=== PATIENT | female | born 1965 | race Caucasian/White ===

== ENCOUNTER 2018-06-18 13:34 | Emergency (ER) | payer MEDICAID ==
[~2018-06-18] VITALS: Ht 162.6 cm; Wt 83.9 kg
--- OUTSIDE RECORDS SUMMARY | 2018-06-18 13:55 | XMS REPORT ---
Author Author ALEXANDRA PATEL Organization [facility] Address [address] [place] [address] Care Team Providers Care Wood Type Finisher Name Role Phone ALEXANDRA PATEL Unavailable PROBLEMS Type Condition ICD9-CM Code UWU86-EP Code Onset Dates Condition Status SNOMED Code Problem Neural foraminal stenosis, multilevel 724.9 Nov, Active 58559531 Problem Encounter for pain management counseling V65.49 Jun, Active 448954956 Problem Neural foraminal stenosis, multilevel M43.8X9 Nov, Active Problem Chronic pain of multiple joints M25.50 May, Active 68964503 Problem Chronic pain of multiple joints 719.49 May, Active 23260714 Problem Lumbar canal stenosis 724.02 Nov, Active 11217226 Problem Unspecified viral hepatitis C without hepatic coma B19.20 Mar Active 39547376 Problem Rheumatoid arthritis involving multiple sites with positive rheumatoid factor 714.0 July, Active 11252169 Problem Alleged drug diversion Z65.3 May, Active 07703147 Problem Chronic hepatitis C without hepatic coma B18.2 Active 458586972 Problem Anxiety F41.9 Oct, Active 68805601 Problem Other chronic pain G89.29 Active 42779884 Problem Degenerative disc disease, lumbar M51.36 Nov, Active 09002566 Problem Alleged drug diversion V62.5 May, Active 92266135 Problem Depression with anxiety F41.8 Aug, Active 747750492 Problem Essential hypertension, benign I10 Jan, Active 2709417 Problem Rheumatoid arthritis involving multiple sites with positive rheumatoid factor M05.79 July, Active 12327989 Problem Family planning Z30.09 Jun, Active 82308145 Problem Back pain 724.5 Dec, Active 900365526 Problem Pure hypercholesterolemia E78.00 Dec, Active 483340046 Problem Anxiety 300.00 Oct, Active 11125289 Problem Cigarette nicotine dependence, uncomplicated F17.210 26 Nov, 2014 Active 876601709 Problem Pure hypercholesterolemia 272.0 09 Dec, 2007 Active 789662984 Problem Varicose vein of leg I83.90 Aug, Active 42725034 Problem Essential hypertension, benign 401.1 Jan, Active 1023195 Problem Low back pain M54.5 Active 084004456 Problem Back pain M54.9 Dec, Active 138215306 Problem Depression, unspecified depression type F32.9 Active 22497019 Problem Unspecified viral hepatitis C without hepatic coma 070.70 Mar Active 79395390 Problem Essential hypertension I10 Active 24847520 Problem Cocaine use disorder, moderate, dependence F14.20 Active 99359889 Problem Methamphetamine use disorder, severe, 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 Active 40553691 Problem New onset type 2 diabetes mellitus E11.9 Active 69055147 Problem Cigarette nicotine dependence, uncomplicated 305.1 Nov, Active 544832300 Problem Family planning V25.09 04 Jun, 2010 Active 97562017 Problem Uncontrolled type 2 diabetes mellitus with hyperglycemia E11.65 Active 039413875 Problem Lumbar canal stenosis M48.061 Nov, Active 27300051 Problem Varicose vein of leg 454.9 Aug, Active 47501156 Problem Depression with anxiety 300.4 Aug, Active 162703876 Problem Encounter for pain management counseling Z71.89 Jun, Active 210272914 Problem Degenerative disc disease, lumbar 722.52 Nov, Active 44088852 Problem GAVIN (generalized anxiety disorder) F41.1 Active 82929360 Problem Bipolar disorder, current episode mixed, moderate F31.62 Active 345537338 Problem Tobacco use 305.1 Nov, Active 016995190 Problem Tobacco use Z72.0 Active 301745945 Problem Chronic post-traumatic stress disorder (PTSD) F43.12 Active 56538779 ALLERGIES No Information ENCOUNTERS Encounter Location Date Diagnosis [address] [address] May, Uncontrolled type 2 diabetes mellitus with hyperglycemia E11.65 and New onset type 2 diabetes mellitus E11.9 [facility] [address] [facility] [id number] [address] May, New onset type 2 diabetes mellitus E11.9 [facility] [id number] [address] May, [facility] [address] [address] May, [address] [address] May, Chronic hepatitis C without hepatic coma B18.[address] [address] May, Chronic hepatitis C without hepatic coma B18.2 [facility] [address] [place] [address] May, [facility] [address] [address] May, [facility] [address] [place] [address] May, [facility] [address] [place] [address] May, Chronic hepatitis C without hepatic coma B18.2 and Encounter for immunization Z23 [facility] [address], [place] [address] Apr, Bipolar disorder, current episode mixed, moderate F31.62 ; Chronic post-traumatic stress disorder (PTSD) F43.12 ; GAVIN (generalized anxiety disorder) F41.1 ; Tobacco use Z72.0 ; Cocaine use disorder, moderate, dependence F14.20 and Methamphetamine use disorder, severe, 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 [address] Apr, [facility] [id number] [address] Apr, New onset type 2 diabetes mellitus E11.9 [facility] [id number] [address] Apr, New onset type 2 diabetes mellitus E11.[address] [address] Apr, Elevated glucose R73.[address] [address] Apr, Essential hypertension I10 and Chronic hepatitis C without hepatic coma B18.2 [facility] [address] [place] [address] Apr, [facility] [id number] [place] [address] Apr, [facility] [id number] [place] [address] Apr, Chronic hepatitis C without hepatic coma B18.[address] [address] Apr, Bipolar disorder, current episode mixed, moderate F31.62 ; GAVIN ( generalized anxiety disorder) F41.1 ; Other chronic pain G89.29 ; Chronic hepatitis C without hepatic coma B18.2 and Essential hypertension I10 [facility] [address] [place] [address] Apr, [facility] [id number] [place] [address] Mar, [facility] [address] [place] [address] Feb, [facility] [address] [place] [address] Feb, [facility] [id number] [place] [address] Feb, Bipolar disorder, current episode mixed, moderate F31.62 [facility] [id number] [place] [address] Feb, [facility] [address] [place] [address] Jan, Bipolar disorder, current episode mixed, moderate F31.62 ; Methamphetamine use disorder, severe, 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 ; Cocaine use disorder, moderate, dependence F14.20 ; Tobacco use Z72.0 and GAVIN ( generalized anxiety disorder) F41.1 [place] [id number] [place] [address] Dec, [place] [id number] [place] [address] Dec, [place] [id number] [place] [address] Aug, [place] [id number] [place] [address] July, Bipolar disorder, current episode mixed, moderate F31.62 [place] [id number] [place] [address] Jun, Bipolar disorder, current episode mixed, moderate F31.62 [place] [id number] [place] [address] Jun, [place] [id number] [place] [address] Jun, Bipolar disorder, current episode mixed, moderate F31.62 ; Methamphetamine use disorder, severe, 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 ; Cocaine use disorder, moderate, dependence F14.20 ; Tobacco use Z72.0 and GAVIN ( generalized anxiety disorder) F41.1 [place] [address] [place] [address] Jun, Encounter for medication monitoring Z51.81 [place] [id number] [place] [address] May, Depression, unspecified depression type F32.9 [place] [id number] [place] [address] May, [place] [id number] [place] [address] May, Bipolar disorder, current episode mixed, moderate F31.62 ; Methamphetamine use disorder, severe, 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 ; Cocaine use disorder, moderate, dependence F14.20 ; Tobacco use Z72.0 and GAVIN ( generalized anxiety disorder) F41.1 [place] [id number] [address] Apr, Low back pain M54.5 [place] [address] [place] [address] Apr, Essential hypertension I10 ; Chronic hepatitis C without hepatic coma B18.2 ; Low back pain M54.5 ; Other chronic pain G89.29 and Depression, unspecified depression type F32.9 [place] [address] [place] [address] Jan, Encounter for immunization Z23 IMMUNIZATIONS No Known Immunizations SOCIAL HISTORY Never Assessed REASON FOR VISIT PLAN OF CARE VITAL SIGNS MEDICATIONS Unknown Medications RESULTS No Results PROCEDURES No Known procedures INSTRUCTIONS MEDICATIONS ADMINISTERED No Known Medications MEDICAL (GENERAL) HISTORY Type Description Date Medical History Hep C not treated yet Medical History rheumatoid arthritis Medical History Chronic low back pain Medical History HTN Medical History anxiety/depression Medical History osteoarthritis Medical History Arrythmia Medical History DDD Surgical History lower back surgery fusion on L4, L5-S1, S2 02/20/2017 Surgical History cholecystectomy 2010 Hospitalization History surgery 02/2017 Hospitalization History childbirth
--- OUTSIDE RECORDS SUMMARY | 2018-06-18 13:56 | XMS REPORT ---
Demographics Address [address] [place] [address] [place] [address] Preferred Language Unknown Marital Status Unknown Latter Day Affiliation Unknown Race Unknown Ethnic Group Unknown Author Author LOCO TOYIN Organization [facility] Address [address] [place] [address] Care Team Providers Care Patient Accounts Coordinator Name Role Phone PARISHROSMERY RODRIGUEZA Unavailable PROBLEMS Type Condition ICD9-CM Code [id number] Code Onset Dates Condition Status SNOMED Code Problem Other chronic pain G89.29 Active 03588334 Problem Depression, unspecified depression type F32.9 Active 75416057 Problem Essential hypertension I10 Active 83440631 Problem Low back pain M54.5 Active 293632979 Problem Bipolar disorder, current episode mixed, moderate F31.62 Active 026688171 Problem Tobacco use Z72.0 Active 915668348 Problem Cocaine use disorder, moderate, dependence F14.20 Active 50501075 Problem Chronic hepatitis C without hepatic coma B18.2 Active 947518374 Problem GAVIN (generalized anxiety disorder) F41.1 Active 29833005 Problem Methamphetamine use disorder, severe, 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 [address] [place] [address] Aug, [place] [id number] [place] [address] July, Bipolar disorder, current episode mixed, moderate F31.62 [facility] [address] [place] [address] Jun, Bipolar disorder, current episode mixed, moderate F31.62 [facility] [id number] [place] [address] Jun, 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20 ; Tobacco use Z72.0 and GAVIN ( generalized anxiety disorder) F41.1 [place] [id number] [place] [address] Apr, Low back pain M54.[address] [address] Apr, Essential hypertension I10 ; Chronic hepatitis C without hepatic coma B18.2 ; Low back pain M54.5 ; Other chronic pain G89.29 and Depression, unspecified depression type F32.9 [place] [id number] [place] [address] Jan, Encounter for immunization Z23 IMMUNIZATIONS No Known Immunizations SOCIAL HISTORY Never Assessed REASON FOR VISIT med refill PLAN OF CARE VITAL SIGNS MEDICATIONS Medication Instructions Dosage Frequency Start Date End Date Duration Status Seroquel 100 mg Orally Once a day 1 tablet 24h Jun, 30 day(s) Active Seroquel 25 MG Orally BId prn for anxiety, irritability 0.5-1 tablet Jun, 30 day(s) Active RESULTS No Results PROCEDURES No Known procedures INSTRUCTIONS MEDICATIONS ADMINISTERED No Known Medications MEDICAL (GENERAL) HISTORY Type Description Date Medical History Hep C not treated yet Medical History RA Medical History Extra vertabrae in lower lumbar Medical History HTN Medical History anxiety/depression Medical History osteoarthritis Medical History Arrythmia Medical History DDD Surgical History lower back surgery fusion on L4, L5-S1, S2 02/20/2017 Surgical History cholecystectomy 2009 Hospitalization History surgery 02/2017 Hospitalization History childbirth
--- OUTSIDE RECORDS SUMMARY | 2018-06-18 13:56 | XMS REPORT ---
Demographics Address [address] [place] [address] Preferred Language Unknown Marital Status Unknown Sikh Affiliation Unknown Race Unknown Ethnic Group Unknown Author Author LOCO TOYIN Organization [facility] Address [address] [place] [address] Care Team Providers Care Retail Beauty Specialist Name Role Phone PARISHROSMERY RODRIGUEZA Unavailable PROBLEMS Type Condition ICD9-CM Code SCX65-PE Code Onset Dates Condition Status SNOMED Code Problem Other chronic pain G89.29 Active 89197096 Problem Depression, unspecified depression type F32.9 Active 59614563 Problem Essential hypertension I10 Active 33161513 Problem Low back pain M54.5 Active 254477048 Problem Bipolar disorder, current episode mixed, moderate F31.62 Active 500300012 Problem Tobacco use Z72.0 Active 730016068 Problem Cocaine use disorder, moderate, dependence F14.20 Active 34994255 Problem Chronic hepatitis C without hepatic coma B18.2 Active 618974402 Problem GAVIN (generalized anxiety disorder) F41.1 Active 42549633 Problem Methamphetamine use disorder, severe, 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 Active 23864422 ALLERGIES No Information ENCOUNTERS Encounter Location Date Diagnosis [facility] [address] [place] [address] Aug, [place] [id number] [place] [address]- 2608 July, Bipolar disorder, current episode mixed, moderate F31.62 [facility] [address] [place] [address]- 2592 Jun, Bipolar disorder, current episode mixed, moderate F31.62 [facility] [id number] [place] [address]- [address] Jun, [facility] [address] [place] [address]87- 4347 Jun, Bipolar disorder, current episode mixed, moderate F31.62 ; Methamphetamine use disorder, severe, 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 ; Cocaine use disorder, moderate, dependence F14.20 ; Tobacco use Z72.0 and GAVIN ( generalized anxiety disorder) F41.1 [place] [id number] [place] [address] Jun, Encounter for medication monitoring Z51.[address] [address] May, Depression, unspecified depression type F32.9 [place] [address] [address] May, [place] [address]- [address] May, Bipolar disorder, current episode mixed, moderate F31.62 ; Methamphetamine use disorder, severe, 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 ; Cocaine use disorder, moderate, dependence F14.20 ; Tobacco use Z72.0 and GAVIN ( generalized anxiety disorder) F41.1 [place] [id number] [place] [address]32 Apr, Low back pain M54.[address] [address] Apr, Essential hypertension I10 ; Chronic hepatitis C without hepatic coma B18.2 ; Low back pain M54.5 ; Other chronic pain G89.29 and Depression, unspecified depression type F32.9 [place] [id number] [place] [address]- 3058 Jan, Encounter for immunization Z23 IMMUNIZATIONS No Known Immunizations SOCIAL HISTORY Never Assessed REASON FOR VISIT Ambien PLAN OF CARE VITAL SIGNS MEDICATIONS Medication Instructions Dosage Frequency Start Date End Date Duration Status Seroquel 100 MG Orally BId prn for anxiety, irritability 0.5-1 tablet Jun, 30 day(s) Active Seroquel 200 MG Orally Once a day 1 tablet 24h Jun, 30 day(s) Active RESULTS No Results [...]
--- OUTSIDE RECORDS SUMMARY | 2018-06-18 13:56 | XMS REPORT ---
Author Author TOYIN ADAN Organization [facility] Address [address] [place] [address] Care Team Providers Care Dipper Fish Name Role Phone LOCO TOYIN Unavailable PROBLEMS Type Condition ICD9-CM Code DES00-OX Code Onset Dates Condition Status SNOMED Code Problem Other chronic pain G89.29 Active 68838132 Problem Depression, unspecified depression type F32.9 Active 42815744 Problem Essential hypertension I10 Active 44027555 Problem Low back pain M54.5 Active 088729542 Problem Bipolar disorder, current episode mixed, moderate F31.62 Active 030084358 Problem Tobacco use Z72.0 Active 945471264 Problem Cocaine use disorder, moderate, dependence F14.20 Active 67070507 Problem Chronic hepatitis C without hepatic coma B18.2 Active 961329055 Problem GAVIN (generalized anxiety disorder) F41.1 Active 24921347 Problem Methamphetamine use disorder, severe, 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 Active 11414543 ALLERGIES No Information ENCOUNTERS Encounter Location Date Diagnosis [facility] [id number] [place] [address]- [address] May, [place] [id number] [place] [address]- [address]28 Jan, Bipolar disorder, current episode mixed, moderate F31.62 ; Methamphetamine use disorder, severe, 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 ; Cocaine use disorder, moderate, dependence F14.20 ; Tobacco use Z72.0 and GAVIN ( generalized anxiety disorder) F41.1 [facility] [id number] [place] [address]- [address] Aug, [facility] [id number] [place] [address] 67[address]- 4222 July, Bipolar disorder, current episode mixed, moderate F31.62 [place] [id number] [place] [address]481- 6713 Jun, Bipolar disorder, current episode mixed, moderate F31.62 [place] [id number] [place] [address]- [address] Jun, [place] [id number] [place] [address]- 3115 Jun, Bipolar disorder, current episode mixed, moderate F31.62 ; Methamphetamine use disorder, severe, 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 ; Cocaine use disorder, moderate, dependence F14.20 ; Tobacco use Z72.0 and GAVIN ( generalized anxiety disorder) F41.1 [place] [id number] [place] [address] 16550- 9544 Jun, Encounter for medication monitoring Z51.81 [place] [id number] [place] [address] 35946- 2029 May, Depression, unspecified depression type F32.9 [place] [id number] [place] [address]58- 5439 May, [place] [id number] [place] [address] 98071- 9592 May, Bipolar disorder, current episode mixed, moderate F31.62 ; Methamphetamine use disorder, severe, 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 ; Cocaine use disorder, moderate, dependence F14.20 ; Tobacco use Z72.0 and GAVIN ( generalized anxiety disorder) F41.1 [place] [address] [place] [address]- 4805 Apr, Low back pain M54.5 [place] [id number] [place] [address] 76203- 4391 Apr, Essential hypertension I10 ; Chronic hepatitis C without hepatic coma B18.2 ; Low back pain M54.5 ; Other chronic pain G89.29 and Depression, unspecified depression type F32.9 [place] [id number] [place] [address]- 1253 Jan, Encounter for immunization Z23 IMMUNIZATIONS No Known Immunizations SOCIAL HISTORY Never Assessed REASON FOR VISIT F\U [facility] octavio PLAN OF CARE Activity Details Follow Up 6 Weeks Reason: VITAL SIGNS Height 64 in 2018-01-31 Weight 203.5 lbs 2018-01-31 Heart Rate 95 bpm 2018-01-31 Respiratory Rate 20 2018-01-31 BMI 34.93 kg/m2 2018-01-31 Blood pressure systolic 160 mmHg 2018-01-31 Blood pressure diastolic 98 mmHg 2018-01-31 MEDICATIONS Medication Instructions Dosage Frequency Start Date End Date Duration Status Seroquel 50 MG Orally BId 1 tablet 12h 30 days Active Seroquel 200 MG Orally Once a day 1 tablet 24h 30 days Active Lisinopril-Hydrochlorothiazide 10-12.5 MG Orally Once a day 1 tablet 24h Active Methocarbamol 750 MG 1 TABLET 4 TIMES A DAY NEEDED ORALLY 90 Active Gabapentin 300 MG Orally Three times a day 1 capsule 8h Active Carvedilol 25 MG Orally 2 times a day 12h Active RESULTS No Results PROCEDURES No Known [...]
--- OUTSIDE RECORDS SUMMARY | 2018-06-18 13:56 | XMS REPORT ---
Demographics Address [address] [place] [address] Preferred Language Unknown Marital Status Unknown Jain Affiliation Unknown Race Unknown Ethnic Group Unknown Author Author LOCO TOYIN Organization [facility] Address [address] [place] [address] Care Team Providers Care Mining Consultant Name Role Phone PARISHROSMERY RODRIGUEZA Unavailable PROBLEMS Type Condition ICD9-CM Code HDP34-CP Code Onset Dates Condition Status SNOMED Code Problem Other chronic pain G89.29 Active 23870107 Problem Depression, unspecified depression type F32.9 Active 90434887 Problem Essential hypertension I10 Active 46187167 Problem Low back pain M54.5 Active 284182719 Problem Bipolar disorder, current episode mixed, moderate F31.62 Active 546760333 Problem Tobacco use Z72.0 Active 529553582 Problem Cocaine use disorder, moderate, dependence F14.20 Active 91226907 Problem Chronic hepatitis C without hepatic coma B18.2 Active 601207323 Problem GAVIN (generalized anxiety disorder) F41.1 Active 50833040 Problem Methamphetamine use disorder, severe, 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 Active 59320372 ALLERGIES No Information ENCOUNTERS Encounter Location Date Diagnosis [facility] [id number] [place] [address] Aug, [place] [id number] [place] [address] 26598[address] July, Bipolar disorder, current episode mixed, moderate F31.62 [facility] [id number] [place] [address] 79918- 1552 Jun, Bipolar disorder, current episode mixed, moderate F31.62 [facility] [address] [place] [id number] [place] [address] 93890- 7034 Jun, [facility] [address] [place] [address] 41900- 2757 Jun, Bipolar disorder, current episode mixed, moderate F31.62 ; Methamphetamine use disorder, severe, 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 ; Cocaine use disorder, moderate, dependence F14.20 ; Tobacco use Z72.0 and GAVIN ( generalized anxiety disorder) F41.1 [place] [address] [place] [id number] [place] [id number] Jun, Encounter for medication monitoring Z51.81 [place] [id number] May, Depression, unspecified depression type F32.9 [place] [address] [address] May, [address] [address] May, Bipolar disorder, current episode mixed, moderate F31.62 ; Methamphetamine use disorder, severe, 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 ; Cocaine use disorder, moderate, dependence F14.20 ; Tobacco use Z72.0 and GAVIN ( generalized anxiety disorder) F41.1 [place] [address] [id number] [place] [address] 45581- 5409 Apr, Low back pain M54.5 [place] [address]182- [address] Apr, Essential hypertension I10 ; Chronic hepatitis C without hepatic coma B18.2 ; Low back pain M54.5 ; Other chronic pain G89.29 and Depression, unspecified depression type F32.9 [place] [address] [place] [id number] [place] [address]72- 8331 Jan, Encounter for immunization Z23 IMMUNIZATIONS No [...]
--- OUTSIDE RECORDS SUMMARY | 2018-06-18 13:56 | XMS REPORT ---
Author Author TARIQ FOSTER [facility] Address [address] [place] [address] Care Team Providers Care Fish House Worker Name Role Phone TARIQ FOSTER Unavailable PROBLEMS Type Condition ICD9-CM Code LOZ23-NR Code Onset Dates Condition Status SNOMED Code Problem Neural foraminal stenosis, multilevel 724.9 Nov, Active 83898579 Problem Encounter for pain management counseling V65.49 Jun, Active 599065211 Problem Neural foraminal stenosis, multilevel M43.8X9 Nov, Active Problem Chronic pain of multiple joints M25.50 May, Active 34895171 Problem Chronic pain of multiple joints 719.49 May, Active 74756406 Problem Lumbar canal stenosis 724.02 Nov, Active 88979523 Problem Unspecified viral hepatitis C without hepatic coma B19.20 Mar Active 68118293 Problem Rheumatoid arthritis involving multiple sites with positive rheumatoid factor 714.0 July, Active 76341645 Problem Alleged drug diversion Z65.3 May, Active 18091328 Problem Chronic hepatitis C without hepatic coma B18.2 Active 151740695 Problem Anxiety F41.9 Oct, Active 55247293 Problem Other chronic pain G89.29 Active 25142745 Problem Degenerative disc disease, lumbar M51.36 Nov, Active 54193008 Problem Alleged drug diversion V62.5 May, Active 85299663 Problem Depression with anxiety F41.8 Aug, Active 166656673 Problem Essential hypertension, benign I10 Jan, Active 0493560 Problem Rheumatoid arthritis involving multiple sites with positive rheumatoid factor M05.79 July, Active 98188869 Problem Family planning Z30.09 Jun, Active 29493652 Problem Back pain 724.5 Dec, Active 405305544 Problem Pure hypercholesterolemia E78.00 Dec, Active 801125771 Problem Anxiety 300.00 30 Aug, 2014 Active 68010413 Problem Cigarette nicotine dependence, uncomplicated F17.210 Nov, Active 043808782 Problem Pure hypercholesterolemia 272.0 Dec, Active 568001672 Problem Varicose vein of leg I83.90 Aug, Active 45915923 Problem Essential hypertension, benign 401.1 Jan, Active 9762369 Problem Low back pain M54.5 Active 127572498 Problem Back pain M54.9 Dec, Active 305507952 Problem Depression, unspecified depression type F32.9 Active 81256637 Problem Unspecified viral hepatitis C without hepatic coma 070.70 Mar Active 89845322 Problem Essential hypertension I10 Active 37243565 Problem Cocaine use disorder, moderate, dependence F14.20 Active 99003425 Problem Methamphetamine use disorder, severe, 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 Active 07085430 Problem New onset type 2 diabetes mellitus E11.9 Active 80586275 Problem Cigarette nicotine dependence, uncomplicated 305.1 Nov, Active 739231118 Problem Family planning V25.09 Jun, Active 14606642 Problem Uncontrolled type 2 diabetes mellitus with hyperglycemia E11.65 Active 371981699 Problem Lumbar canal stenosis M48.061 Nov, Active 47067758 Problem Varicose vein of leg 454.9 Aug, Active 74799559 Problem Depression with anxiety 300.4 Aug, Active 539389648 Problem Encounter for pain management counseling Z71.89 Jun, Active 266670510 Problem Degenerative disc disease, lumbar 722.52 Nov, Active 10186157 Problem GAVIN (generalized anxiety disorder) F41.1 Active 52622027 Problem Bipolar disorder, current episode mixed, moderate F31.62 Active 208315009 Problem Tobacco use 305.1 Nov, Active 773891000 Problem Tobacco use Z72.0 Active 134764008 Problem Chronic post-traumatic stress disorder (PTSD) F43.12 Active 75943527 ALLERGIES No Information ENCOUNTERS Encounter Location Date Diagnosis [address] [address] May, Uncontrolled type 2 diabetes mellitus with hyperglycemia E11.65 and New onset type 2 diabetes mellitus E11.9 [facility] [address] [facility] [id number] [place] [address] May, New onset type 2 diabetes mellitus E11.9 [facility] [address] [place] [address] May, [facility] [address] [place] [address] May, [address] [address] May, Chronic hepatitis C without hepatic coma B18.[address] [address] May, Chronic hepatitis C without hepatic coma B18.2 [facility] [address] [place] [address] May, [facility] [address] [place] [address] May, [facility] [address] [place] [address] May, [facility] [address] [place] [address] May, Chronic hepatitis C without hepatic coma B18.2 and Encounter for immunization Z23 [facility] [address] [place] [address] Apr, Bipolar disorder, current episode mixed, moderate F31.62 ; Chronic post-traumatic stress disorder (PTSD) F43.12 ; GAVIN (generalized anxiety disorder) F41.1 ; Tobacco use Z72.0 ; Cocaine use disorder, moderate, dependence F14.20 and Methamphetamine use disorder, severe, 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 [address] Apr, [facility] [address] [place] [id number] [address] Apr, New onset type 2 diabetes mellitus E11.9 [facility] [address] [place] [id number] [address] Apr, New onset type 2 diabetes mellitus E11.[address] [place] [address] Apr, Elevated glucose R73.[address] [address] Apr, Essential hypertension I10 and Chronic hepatitis C without hepatic coma B18.2 [facility] [address] [place] [address] Apr, [facility] [address] [place] [id number] [place] [address] Apr, [facility] [address] [place] [address]- 49[address] Apr, Chronic hepatitis C without hepatic coma B18.[address] [address] Apr, Bipolar disorder, current episode mixed, moderate F31.62 ; GAVIN ( generalized anxiety disorder) F41.1 ; Other chronic pain G89.29 ; Chronic hepatitis C without hepatic coma B18.2 and Essential hypertension I10 [facility] [address] [place] [address]- [address] Apr, [facility] [address] [place] [id number] [place] [address]- 9[address] Mar, [facility] [address] [place] [address] Feb, [facility] [address] [place] [id number] [address] Feb, [facility] [address] [place] [address]- [address] Feb, Bipolar disorder, current episode mixed, moderate F31.62 [facility] [address] [place] [id number] [place] [address] 85[address]- [address] Feb, [facility] [address] [address] Jan, Bipolar disorder, current episode mixed, moderate F31.62 ; Methamphetamine use disorder, severe, 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 ; Cocaine use disorder, moderate, dependence F14.20 ; Tobacco use Z72.0 and GAVIN ( generalized anxiety disorder) F41.1 [place] [address] [place] [address]- 360[address] Dec, [place] [address] [place] [id number] [place] [address]- 9149 Dec, [place] [address] [place] [id number] [place] [address]36- 4[address] Aug, [place] [address] [place] [id number] [place] [address]- 59[address] July, Bipolar disorder, current episode mixed, moderate F31.62 [place] [address] [place] [id number] [place] [address]- [address]287 Jun, Bipolar disorder, current episode mixed, moderate F31.62 [place] [address] [place] [id number] [place] [address] 54[address]- 2919 Jun, [place] [address] [place] [id number] [place] [address]- 7[address] Jun, Bipolar disorder, current episode mixed, moderate F31.62 ; Methamphetamine use disorder, severe, 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 ; Cocaine use disorder, moderate, dependence F14.20 ; Tobacco use Z72.0 and GAVIN ( generalized anxiety disorder) F41.1 [place] [address] [place] [address]- 9582 Jun, Encounter for medication monitoring Z51.81 [place] [address] [place] [address] 86[address]- 8780 May, Depression, unspecified depression type F32.9 [place] [address] [place] [address]1724- 3[address] May, [place] [address] [place] [address]- 4[address] May, Bipolar disorder, current episode mixed, moderate F31.62 ; Methamphetamine use disorder, severe, 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 ; Cocaine use disorder, moderate, dependence F14.20 ; Tobacco use Z72.0 and GAVIN ( generalized anxiety disorder) F41.1 [place] [address] [place] [id number], [place] [address] Apr, Low back pain M54.5 [place] [address] [place] [address]- 79[address] Apr, Essential hypertension I10 ; Chronic hepatitis C without hepatic coma B18.2 ; Low back pain M54.5 ; Other chronic pain G89.29 and Depression, unspecified depression type F32.9 [place] [address] [place] [address] 07709- 0[address] Jan, Encounter for immunization Z23 IMMUNIZATIONS No Known Immunizations SOCIAL HISTORY Never Assessed REASON FOR VISIT DM ed scheduled- high BS PLAN OF CARE VITAL SIGNS MEDICATIONS Unknown [...]
--- OUTSIDE RECORDS SUMMARY | 2018-06-18 13:56 | XMS REPORT ---
Author Author TOYIN SWEET Organization [facility] Address [address] [place] [address] Care Team Providers Care Rubber Stamp Maker Name Role Phone TOYIN SWEET Unavailable PROBLEMS Type Condition ICD9-CM Code IGL34-LX Code Onset Dates Condition Status SNOMED Code Problem Other chronic pain G89.29 Active 75973208 Problem Depression, unspecified depression type F32.9 Active 20997859 Problem Essential hypertension I10 Active 56266585 Problem Low back pain M54.5 Active 728527447 Problem Bipolar disorder, current episode mixed, moderate F31.62 Active 046034041 Problem Tobacco use Z72.0 Active 985262358 Problem Cocaine use disorder, moderate, dependence F14.20 Active 31753238 Problem Chronic hepatitis C without hepatic coma B18.2 Active 161822315 Problem GAVIN (generalized anxiety disorder) F41.1 Active 64374940 Problem Methamphetamine use disorder, severe, 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 Active 33425005 ALLERGIES No Information ENCOUNTERS Encounter Location Date Diagnosis [place] [address] [place] [id number] [place] [address]40[address] May, [place] [address] [place] [id number] [place] [address] 10926- 8135 Feb, Bipolar disorder, current episode mixed, moderate F31.62 [place] [address] [place] [id number] [place] [address] 18177- 4800 Jan, Bipolar disorder, current episode mixed, moderate F31.62 ; Methamphetamine use disorder, severe, 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 ; Cocaine use disorder, moderate, dependence F14.20 ; Tobacco use Z72.0 and GAVIN ( generalized anxiety disorder) F41.1 [place] [address] [place] [id number] [place] [address] 40602- 4640 Aug, [place] [address] [place] [address] 30356- 3902 July, Bipolar disorder, current episode mixed, moderate F31.62 [place] [address] [place] [id number] [place] [address] 97309- 0793 Jun, Bipolar disorder, current episode mixed, moderate F31.62 [place] [address] [place] [id number] [place] [address] 62483- 9866 Jun, [place] [address] [place] [id number] [place] [address] 09983- 6991 Jun, Bipolar disorder, current episode mixed, moderate F31.62 ; Methamphetamine use disorder, severe, 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 ; Cocaine use disorder, moderate, dependence F14.20 ; Tobacco use Z72.0 and GAVIN ( generalized anxiety disorder) F41.1 [place] [address] [place] [id number] [place] [address] 55262- 5792 Jun, Encounter for medication monitoring Z51.81 [place] [address] [place] [id number] [place] [address] 26633- 0212 May, Depression, unspecified depression type F32.9 [place] [address] [place] [id number] [place] [address] 83325- 4736 May, [place] [address] [place] [id number] [place] [address] 79797- 6631 May, Bipolar disorder, current episode mixed, moderate F31.62 ; Methamphetamine use disorder, severe, 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 ; Cocaine use disorder, moderate, dependence F14.20 ; Tobacco use Z72.0 and GAVIN ( generalized anxiety disorder) F41.1 [place] [address] [place] [id number] [place] [address] 33077- 5058 Apr, Low back pain M54.5 [place] [address] [place] [address] 74176- 4869 Apr, Essential hypertension I10 ; Chronic hepatitis C without hepatic coma B18.2 ; Low back pain M54.5 ; Other chronic pain G89.29 and Depression, unspecified depression type F32.9 [facility] [address] [facility] [id number] [place] [address] Jan, Encounter for immunization Z23 IMMUNIZATIONS No Known Immunizations SOCIAL HISTORY Never Assessed REASON FOR VISIT Medication question PLAN OF CARE VITAL SIGNS MEDICATIONS Medication Instructions Dosage Frequency Start Date End Date Duration Status Seroquel 200 MG Orally Once a day at bedtime 1 tablet 30 Active Seroquel 100 MG Orally BId 1 tablet 12h 30 days Active RESULTS No Results PROCEDURES No Known [...]
--- OUTSIDE RECORDS SUMMARY | 2018-06-18 13:56 | XMS REPORT ---
Author Author ALEXANDRA PATEL Organization [facility] Address [address] [place] [address] Care Team Providers Care Physician Relations Specialist Name Role Phone ALEXANDRA PATEL Unavailable PROBLEMS Type Condition ICD9-CM Code [id number] Code Onset Dates Condition Status SNOMED Code Problem Neural foraminal stenosis, multilevel 724.9 Nov, Active 32212140 Problem Encounter for pain management counseling V65.49 Jun, Active 476061150 Problem Neural foraminal stenosis, multilevel M43.8X9 Nov, Active Problem Chronic pain of multiple joints M25.50 May, Active 87400736 Problem Chronic pain of multiple joints 719.49 May, Active 46230694 Problem Lumbar canal stenosis 724.02 Nov, Active 30439913 Problem Unspecified viral hepatitis C without hepatic coma B19.20 Mar Active 29680767 Problem Rheumatoid arthritis involving multiple sites with positive rheumatoid factor 714.0 July, Active 27148362 Problem Alleged drug diversion Z65.3 May, Active 83224250 Problem Chronic hepatitis C without hepatic coma B18.2 Active 422772312 Problem Anxiety F41.9 Oct, Active 37534191 Problem Other chronic pain G89.29 Active 59592759 Problem Degenerative disc disease, lumbar M51.36 Nov, Active 85550320 Problem Alleged drug diversion V62.5 May, Active 07775486 Problem Depression with anxiety F41.8 Aug, Active 270140824 Problem Essential hypertension, benign I10 Jan, Active 2910184 Problem Rheumatoid arthritis involving multiple sites with positive rheumatoid factor M05.79 July, Active 88624642 Problem Family planning Z30.09 Jun, Active 10277001 Problem Back pain 724.5 Dec, Active 616152530 Problem Pure hypercholesterolemia E78.00 Dec, Active 296277816 Problem Anxiety 300.00 Oct, Active 88239335 Problem Cigarette nicotine dependence, uncomplicated F17.210 Nov, Active 008682656 Problem Pure hypercholesterolemia 272.0 Dec, Active 518875047 Problem Varicose vein of leg I83.90 Aug, Active 22327898 Problem Essential hypertension, benign 401.1 Jan, Active 4285646 Problem Low back pain M54.5 Active 261506806 Problem Back pain M54.9 Dec, Active 072990832 Problem Depression, unspecified depression type F32.9 Active 36346666 Problem Unspecified viral hepatitis C without hepatic coma 070.70 Mar Active 30751074 Problem Essential hypertension I10 Active 68198631 Problem Cocaine use disorder, moderate, dependence F14.20 Active 81362284 Problem Methamphetamine use disorder, severe, 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 Active 22398079 Problem New onset type 2 diabetes mellitus E11.9 Active 26430249 Problem Cigarette nicotine dependence, uncomplicated 305.1 Nov, Active 118203006 Problem Family planning V25.09 04 Jun, 2010 Active 97525214 Problem Uncontrolled type 2 diabetes mellitus with hyperglycemia E11.65 Active 837346866 Problem Lumbar canal stenosis M48.061 Nov, Active 01962287 Problem Varicose vein of leg 454.9 Aug, Active 82420750 Problem Depression with anxiety 300.4 Aug, Active 332580370 Problem Encounter for pain management counseling Z71.89 Jun, Active 019244150 Problem Degenerative disc disease, lumbar 722.52 Nov, Active 01367182 Problem GAVIN (generalized anxiety disorder) F41.1 Active 76751396 Problem Bipolar disorder, current episode mixed, moderate F31.62 Active 471426338 Problem Tobacco use 305.1 Nov, Active 635114775 Problem Tobacco use Z72.0 Active 322750450 Problem Chronic post-traumatic stress disorder (PTSD) F43.12 Active 10560276 ALLERGIES Substance Reaction Event Type Date Status Tetracycline HCl hives Drug Allergy May, Active Erythromycin hives Drug Allergy May, Active ENCOUNTERS Encounter Location Date Diagnosis [facility] [address] [address] May, Uncontrolled type 2 diabetes mellitus with hyperglycemia E11.65 and New onset type 2 diabetes mellitus E11.9 [facility] [address] [address] May, New onset type 2 diabetes mellitus E11.9 [facility] [place] [facility] [address] [address] May, [facility] [place] [facility] [address] [address] May, [address] [address] May, Chronic hepatitis C without hepatic coma B18.[address] [address] May, Chronic hepatitis C without hepatic coma B18.2 [facility] [address] [place] [address] May, [place] [address] [address] May, [place] [address] [address] May, [facility] [address] [place] [address] May, Chronic hepatitis C without hepatic coma B18.2 and Encounter for immunization Z23 [facility] [address] [address] Apr, Bipolar disorder, current episode mixed, moderate F31.62 ; Chronic post-traumatic stress disorder (PTSD) F43.12 ; GAVIN (generalized anxiety disorder) F41.1 ; Tobacco use Z72.0 ; Cocaine use disorder, moderate, dependence F14.20 and Methamphetamine use disorder, severe, 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 [address] Apr, [facility] [address] [place] [id number] [address] Apr, New onset type 2 diabetes mellitus E11.9 [facility] [address], [place] [address] Apr, New onset type 2 diabetes mellitus E11.[address] [address] Apr, Elevated glucose R73.[address] [address] Apr, Essential hypertension I10 and Chronic hepatitis C without hepatic coma B18.2 [facility] [address] [place] [id number] [place] [address] Apr, [facility] [id number] [place] [address] Apr, [facility] [place] [facility] [address] [place] [id number] [place] [address] Apr, Chronic hepatitis C without hepatic coma B18.[address] [address] Apr, Bipolar disorder, current episode mixed, moderate F31.62 ; GAVIN ( generalized anxiety disorder) F41.1 ; Other chronic pain G89.29 ; Chronic hepatitis C without hepatic coma B18.2 and Essential hypertension I10 [facility] [address] [place] [id number] [place] [address] Apr, [facility] [place] [facility] [address] [place] [id number] [place] [address] Mar, [facility] [place] [facility] [address] [place] [address] Feb, [facility] [id number] [address] Feb, [facility] [address] [place] [address] [id number] [place] [address] Feb, Bipolar disorder, current episode mixed, moderate F31.62 [facility] [address], [place] [address] Feb, [facility] [address] [address] [id number] [place] [address] Jan, Bipolar disorder, current episode mixed, moderate F31.62 ; Methamphetamine use disorder, severe, 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 ; Cocaine use disorder, moderate, dependence F14.20 ; Tobacco use Z72.0 and GAVIN ( generalized anxiety disorder) F41.1 [place] [address] [place] [id number] [place] [address] Dec, [place] [address] [address] Dec, [place] [address] [place] [id number] [place] [address] Aug, [place] [address] [address] July, Bipolar disorder, current episode mixed, moderate F31.62 [place] [address] [place] [id number] [place] [address] Jun, Bipolar disorder, current episode mixed, moderate F31.62 [place] [address] [place] [id number] [place] [address] Jun, [place] [address] [address] Jun, Bipolar disorder, current episode mixed, moderate F31.62 ; Methamphetamine use disorder, severe, 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 ; Cocaine use disorder, moderate, dependence F14.20 ; Tobacco use Z72.0 and GAVIN ( generalized anxiety disorder) F41.1 [place] [address] [place] [id number] [place] [address] Jun, Encounter for medication monitoring Z51.81 [place] [address] [address] May, Depression, unspecified depression type F32.9 [place] [address] [place] [id number] [place] [address] May, [place] [address] [address] May, Bipolar disorder, current episode mixed, moderate F31.62 ; Methamphetamine use disorder, severe, 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 ; Cocaine use disorder, moderate, dependence F14.20 ; Tobacco use Z72.0 and GAVIN ( generalized anxiety disorder) F41.1 [place] [address] [place] [id number] [address] Apr, Low back pain M54.5 [place] [address] [place] [address] Apr, Essential hypertension I10 ; Chronic hepatitis C without hepatic coma B18.2 ; Low back pain M54.5 ; Other chronic pain G89.29 and Depression, unspecified depression type F32.9 [place] [address] [place] [id number] [address] Jan, Encounter for immunization Z23 IMMUNIZATIONS Vaccine Route Administration Date Status HEP A (PED/ADOL-2 DOSE) IM Intramuscular May 17, 2018 Administered HEP A (PED/ADOL-2 DOSE) IM Intramuscular May 17, 2018 Administered HEP B (PED/ADOL, 3 DOSE) IM Intramuscular May 17, 2018 Administered HEP B (PED/ADOL, 3 DOSE) IM Intramuscular May 17, 2018 Administered SOCIAL HISTORY Never Assessed REASON FOR VISIT Hep C initial visit Fadi cunningham, G=1A, Q=672,000, F-2. Clean over 2 years. - lynrn PLAN OF CARE Activity Details Follow Up we will call Reason: VITAL SIGNS Height 64 in 2018-05-17 Weight 203 lbs 2018-05-17 Temperature 96.5 degrees Fahrenheit 2018-05-17 Heart Rate 110 bpm 2018-05-17 Respiratory Rate 20 2018-05-17 BMI 34.84 kg/m2 2018-05-17 Blood pressure systolic 132 mmHg 2018-05-17 Blood pressure diastolic 82 mmHg 2018-05-17 MEDICATIONS Medication Instructions Dosage Frequency Start Date End Date Duration Status Seroquel 300 MG Orally at night 1 tablet every night for 3 nights then take 1.5 tablets nightly 30 days Active Lancets Apr, Active Metformin HCl 500 MG Orally 2 times a day 1 tablet with a meal 12h Apr, 30 day(s) Active Methocarbamol 750 MG 1 TABLET 4 TIMES A DAY NEEDED ORALLY 90 Active OneTouch Verio w/Device as directed Apr, Active Seroquel 100 MG Orally BId 1 tablet 12h 30 days Active Mavyret 100-40 MG Orally Once a day 3 tablets 24h May, 8 weeks Active OneTouch Verio - In Vitro 4 times daily as directed Apr, Active Lisinopril-Hydrochlorothiazide 20-12.5 MG Orally Once a day 1 tablet 24h Active Carvedilol 25 MG Orally 2 times a day 12h Active Gabapentin 300 MG Orally Three times a day 1 capsule 8h Active RESULTS No Results PROCEDURES Procedure Date Ordered Result Body Site IMMUNIZATION ADMIN, EACH ADD (please include units) May 17, 2018 SINGLE IMMUNIZATION ADMIN May 17, 2018 HEP B (PED/ADOL, 3 DOSE) May 17, 2018 HEP A (PED/ADOL-2 DOSE) May 17, 2018 INSTRUCTIONS MEDICATIONS ADMINISTERED No Known Medications MEDICAL [...]
--- OUTSIDE RECORDS SUMMARY | 2018-06-18 13:57 | XMS REPORT ---
Demographics Address [address] [place] [address] Preferred Language Unknown Marital Status Unknown Nondenominational Affiliation Unknown Race Unknown Ethnic Group Unknown Author Author RAFFAELE HUI Organization [facility] Address [address] [place] [address] Care Team Providers Care Bean Snipper Name Role Phone RAFFAELE HUI Unavailable PROBLEMS Type Condition ICD9-CM Code MAK12-BF Code Onset Dates Condition Status SNOMED Code Problem Other chronic pain G89.29 Active 48720257 Problem Depression, unspecified depression type F32.9 Active 81560306 Problem Essential hypertension I10 Active 65809481 Problem Low back pain M54.5 Active 423394369 Problem Bipolar disorder, current episode mixed, moderate F31.62 Active 672551148 Problem Tobacco use Z72.0 Active 261347655 Problem Cocaine use disorder, moderate, dependence F14.20 Active 63327168 Problem Chronic hepatitis C without hepatic coma B18.2 Active 083781367 Problem GAVIN (generalized anxiety disorder) F41.1 Active 85654811 Problem Methamphetamine use disorder, severe, 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 Active 05231324 ALLERGIES No Information ENCOUNTERS Encounter Location Date Diagnosis [place] [address] [place] [id number] [place] [address] Aug, [place] [address] [address] July, Bipolar disorder, current episode mixed, moderate F31.62 [facility] [address] [place] [id number] [place] [address] Jun, Bipolar disorder, current episode mixed, moderate F31.62 [place] [address] [address] Jun, [place] [address] [place] [id number] [place] [address] Jun, Bipolar disorder, current episode mixed, moderate F31.62 ; Methamphetamine use disorder, severe, 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 ; Cocaine use disorder, moderate, dependence F14.20 ; Tobacco use Z72.0 and GAVIN ( generalized anxiety disorder) F41.1 [place] [address] [place] [id number] Jun, Encounter for medication monitoring Z51.81 [place] [id number] May, Depression, unspecified depression type F32.9 [place] [address] [address] [id number] [place], [place] [address] May, [place] [address] May, Bipolar disorder, current episode mixed, moderate F31.62 ; Methamphetamine use disorder, severe, 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 ; Cocaine use disorder, moderate, dependence F14.20 ; Tobacco use Z72.0 and GAVIN ( generalized anxiety disorder) F41.1 [place] [address] [place] [address] [id number] [place] [address] Apr, Low back pain M54.5 [place] [address]- [address] Apr, Essential hypertension I10 ; Chronic hepatitis C without hepatic coma B18.2 ; Low back pain M54.5 ; Other chronic pain G89.29 and Depression, unspecified depression type F32.9 [place] [id number] [place], [place] [address] Jan, Encounter for immunization Z23 IMMUNIZATIONS No Known Immunizations SOCIAL HISTORY Never Assessed REASON FOR VISIT Requests return call PLAN OF CARE VITAL SIGNS MEDICATIONS Unknown [...]
--- OUTSIDE RECORDS SUMMARY | 2018-06-18 13:57 | XMS REPORT ---
Demographics Address [address] [place] [address] Preferred Language Unknown Marital Status Unknown Advent Affiliation Unknown Race Unknown Ethnic Group Unknown Author Author RAFFAELE HUI Organization [facility] Address [address] [place] [address] Care Team Providers Care Disbursing Officer Name Role Phone RAFFAELE HUI Unavailable PROBLEMS Type Condition ICD9-CM Code EMN25-AX Code Onset Dates Condition Status SNOMED Code Problem Other chronic pain G89.29 Active 11902133 Problem Depression, unspecified depression type F32.9 Active 96425668 Problem Essential hypertension I10 Active 97805848 Problem Low back pain M54.5 Active 690985886 Problem Bipolar disorder, current episode mixed, moderate F31.62 Active 207976884 Problem Tobacco use Z72.0 Active 076797712 Problem Cocaine use disorder, moderate, dependence F14.20 Active 32252700 Problem Chronic hepatitis C without hepatic coma B18.2 Active 280818546 Problem GAVIN (generalized anxiety disorder) F41.1 Active 86087873 Problem Methamphetamine use disorder, severe, 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 Active 41238455 ALLERGIES No Information ENCOUNTERS Encounter Location Date Diagnosis [place] [address] [place] [id number] [place] [address] Aug, [place] [address] [address] July, Bipolar disorder, current episode mixed, moderate F31.62 [facility] [address] [place] [id number] [place] [address] Jun, Bipolar disorder, current episode mixed, moderate F31.62 [place] [address] [address] Jun, [place] [address] [place] [id number] [place] [address] Jun, Bipolar disorder, current episode mixed, moderate F31.62 ; Methamphetamine use disorder, severe, 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 ; Cocaine use disorder, moderate, dependence F14.20 ; Tobacco use Z72.0 and GAVIN ( generalized anxiety disorder) F41.1 [place] [address] [place] [address] [id number] [place] [address] Jun, Encounter for medication monitoring Z51.[address] [address] May, Depression, unspecified depression type F32.9 [place] [address] [place] [id number] [place] [address] May, [place] [address]- [address] May, Bipolar disorder, current episode mixed, moderate F31.62 ; Methamphetamine use disorder, severe, 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 ; Cocaine use disorder, moderate, dependence F14.20 ; Tobacco use Z72.0 and GAVIN ( generalized anxiety disorder) F41.1 [place] [address] [place] [address] [id number] [place] [address] Apr, Low back pain M54.[address] [address] Apr, Essential hypertension I10 ; Chronic hepatitis C without hepatic coma B18.2 ; Low back pain M54.5 ; Other chronic pain G89.29 and Depression, unspecified depression type F32.9 [place] [id number] [place] [address] Jan, Encounter for immunization Z23 IMMUNIZATIONS No Known Immunizations SOCIAL HISTORY Never Assessed REASON FOR VISIT Erx PLAN OF CARE VITAL SIGNS MEDICATIONS Medication Instructions Dosage Frequency Start Date End Date Duration Status Methocarbamol 750 MG Orally 4 times a day 1 tablet 6h Apr, 90 days Active RESULTS No Results PROCEDURES No [...]
--- OUTSIDE RECORDS SUMMARY | 2018-06-18 13:57 | XMS REPORT ---
Demographics Address [address] [place] [address] Preferred Language Unknown Marital Status Unknown Worship Affiliation Unknown Race Unknown Ethnic Group Unknown Author Author RAFFAELE HUI Organization [facility] Address [address] [place] [address] Care Team Providers Care Workers Compensation Coordinator Name Role Phone RAFFAELE HUI Unavailable PROBLEMS Type Condition ICD9-CM Code ZHJ28-UJ Code Onset Dates Condition Status SNOMED Code Problem Other chronic pain G89.29 Active 50426398 Problem Depression, unspecified depression type F32.9 Active 75343751 Problem Essential hypertension I10 Active 35008838 Problem Low back pain M54.5 Active 323449739 Problem Bipolar disorder, current episode mixed, moderate F31.62 Active 610176675 Problem Tobacco use Z72.0 Active 750520098 Problem Cocaine use disorder, moderate, dependence F14.20 Active 39133323 Problem Chronic hepatitis C without hepatic coma B18.2 Active 169837256 Problem GAVIN (generalized anxiety disorder) F41.1 Active 19529727 Problem Methamphetamine use disorder, severe, 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 Active 92659296 ALLERGIES Substance Reaction Event Type Date Status Tetracycline HCl hives Drug Allergy Apr, Active Erythromycin hives Drug Allergy Apr, Active ENCOUNTERS Encounter Location Date Diagnosis [place] [address] [place] [address] Aug, [place] [address] [place] [id number] [place] [address] July, Bipolar disorder, current episode mixed, moderate F31.62 [facility] [address] [place] [id number] [place] [address] Jun, Bipolar disorder, current episode mixed, moderate F31.62 [facility] [address] [place] [address]- [address] Jun, [place] [address] [place] [id number] [place] [address]- [address] Jun, Bipolar disorder, current episode mixed, moderate F31.62 ; Methamphetamine use disorder, severe, 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 ; Cocaine use disorder, moderate, dependence F14.20 ; Tobacco use Z72.0 and GAVIN ( generalized anxiety disorder) F41.1 [place] [address] [place] [id number] [place] [address] Jun, Encounter for medication monitoring Z51.81 [place] [address] [address] May, Depression, unspecified depression type F32.9 [place] [address] [address] May, [place] [address] [address] May, Bipolar disorder, current episode mixed, moderate F31.62 ; Methamphetamine use disorder, severe, 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 ; Cocaine use disorder, moderate, dependence F14.20 ; Tobacco use Z72.0 and GAVIN ( generalized anxiety disorder) F41.1 [place] [address] [address] Apr, Low back pain M54.5 [place] [address] [address] Apr, Essential hypertension I10 ; Chronic hepatitis C without hepatic coma B18.2 ; Low back pain M54.5 ; Other chronic pain G89.29 and Depression, unspecified depression type F32.9 [place] [address] [place] [id number] [place] [address]- [address] Jan, Encounter for immunization Z23 IMMUNIZATIONS No Known Immunizations SOCIAL HISTORY Never Assessed REASON FOR VISIT Establish Care needing refills on some medications and referrals, PHQ2, AUDIT C - need to have pt sign release to get records from previous provider, Had back surgery on 04/12/17. Still being seen by surgeon. CBrumbackRN PLAN OF CARE Activity Details Follow Up 6 Months Reason: VITAL SIGNS Height 64 in 2017-05-10 Weight 175.6 lbs 2017-05-10 Temperature 98.7 degrees Fahrenheit 2017-05-10 Heart Rate 90 bpm 2017-05-10 Respiratory Rate 18 2017-05-10 BMI 30.14 kg/m2 2017-05-10 Blood pressure systolic 100 mmHg 2017-05-10 Blood pressure diastolic 68 mmHg 2017-05-10 MEDICATIONS Medication Instructions Dosage Frequency Start Date End Date Duration Status Gabapentin 300 MG Orally Three times a day 1 capsule 8h Active Senna S 8.6-50 MG Orally twice a day as needed 1 tablet in the evening as needed Active Oxycodone HCl 5 mg Orally every 6 hrs 1-2 tablet as needed 6h Active Ambien 10 mg Orally Once a day, prn sleep 1 tablet at bedtime as needed Active Lisinopril-Hydrochlorothiazide 10-12.5 MG Orally Once a day 1 tablet 24h Active Carvedilol 25 MG Orally 2 times a day 12h Active Acetaminophen 325 MG Orally every 4 hrs 2 tablets as needed 4h Active Methocarbamol 750 MG Orally 4 times a day as needed 1 tablet Active Cream Base - Active RESULTS No Results PROCEDURES No Known [...]
--- OUTSIDE RECORDS SUMMARY | 2018-06-18 13:57 | XMS REPORT ---
Demographics Address [address] [place] [address] Preferred Language Unknown Marital Status Unknown Hindu Affiliation Unknown Race Unknown Ethnic Group Unknown Author Author RAFFAELE HUI Organization [facility] Address [address] [place] [address] Care Team Providers Care Semiconductor Wafers Etch Operator Name Role Phone RAFFAELE HUI Unavailable PROBLEMS Type Condition ICD9-CM Code [id number] Code Onset Dates Condition Status SNOMED Code Problem Other chronic pain G89.29 Active 84575318 Problem Depression, unspecified depression type F32.9 Active 63982728 Problem Essential hypertension I10 Active 48262227 Problem Low back pain M54.5 Active 751591083 Problem Bipolar disorder, current episode mixed, moderate F31.62 Active 612654563 Problem Tobacco use Z72.0 Active 628919115 Problem Cocaine use disorder, moderate, dependence F14.20 Active 79636581 Problem Chronic hepatitis C without hepatic coma B18.2 Active 664587483 Problem GAVIN (generalized anxiety disorder) F41.1 Active 66281510 Problem Methamphetamine use disorder, severe, 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 Active 84730959 ALLERGIES No Information ENCOUNTERS Encounter Location Date Diagnosis [place] [id number] [place] [id number] [place] [address] 46202- 2597 Aug, [place] [address] 46398[address] July, Bipolar disorder, current episode mixed, moderate F31.62 [facility] [id number] [place] [address] 45579- 5033 Jun, Bipolar disorder, current episode mixed, moderate F31.62 [place] [address] 12126- 7176 Jun, [place] [address] [id number] [place] [address] 05033- 7179 Jun, Bipolar disorder, current episode mixed, moderate F31.62 ; Methamphetamine use disorder, severe, 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 ; Cocaine use disorder, moderate, dependence F14.20 ; Tobacco use Z72.0 and GAVIN ( generalized anxiety disorder) F41.1 [place] [address] [id number] [place] [address] Jun, Encounter for medication monitoring Z51.[address] [address] May, Depression, unspecified depression type F32.9 [place] [address] [id number] [place] [address] 04996- 6368 May, [place] 161681- 2523 May, Bipolar disorder, current episode mixed, moderate F31.62 ; Methamphetamine use disorder, severe, 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 ; Cocaine use disorder, moderate, dependence F14.20 ; Tobacco use Z72.0 and GAVIN ( generalized anxiety disorder) F41.1 [place] [address] [id number] [place] [address] 08448- 1422 Apr, Low back pain M54.5 [place] [id number]- 1071 Apr, Essential hypertension I10 ; Chronic hepatitis C without hepatic coma B18.2 ; Low back pain M54.5 ; Other chronic pain G89.29 and Depression, unspecified depression type F32.9 [place] [id number] [place] [address] 97848- 5651 Jan, Encounter for immunization Z23 IMMUNIZATIONS No Known Immunizations SOCIAL HISTORY Never Assessed REASON FOR VISIT PLAN OF CARE VITAL SIGNS MEDICATIONS Medication Instructions Dosage Frequency Start Date End Date Duration Status Ambien 10 mg Orally Once a day, prn sleep 1 tablet at bedtime as needed Active RESULTS No Results PROCEDURES No Known [...]
--- OUTSIDE RECORDS SUMMARY | 2018-06-18 13:57 | XMS REPORT ---
Demographics Address [address] [place] [address] Preferred Language Unknown Marital Status Unknown Samaritan Affiliation Unknown Race Unknown Ethnic Group Unknown Author Author RAFFAELE HUI Organization [facility] Address [address] [place] [address] Care Team Providers Care Coppersmith Helper Name Role Phone RAFFAELE HUI Unavailable PROBLEMS Type Condition ICD9-CM Code FSG59-KR Code Onset Dates Condition Status SNOMED Code Problem Other chronic pain G89.29 Active 56035564 Problem Depression, unspecified depression type F32.9 Active 99831105 Problem Essential hypertension I10 Active 91595286 Problem Low back pain M54.5 Active 332468383 Problem Bipolar disorder, current episode mixed, moderate F31.62 Active 396864544 Problem Tobacco use Z72.0 Active 152598697 Problem Cocaine use disorder, moderate, dependence F14.20 Active 14794905 Problem Chronic hepatitis C without hepatic coma B18.2 Active 627491992 Problem GAVIN (generalized anxiety disorder) F41.1 Active 12124393 Problem Methamphetamine use disorder, severe, 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 Active 34819825 ALLERGIES No Information ENCOUNTERS Encounter Location Date Diagnosis [place] [address] [place] [id number] [place] [address] 36002- 3299 Aug, [place] [address] 73932- 7226 July, Bipolar disorder, current episode mixed, moderate F31.62 [facility] [id number] [place] [address] 78504- 6698 Jun, Bipolar disorder, current episode mixed, moderate F31.62 [place] [address] 72915- 1026 Jun, [place] [address] [id number] [place] [address] 10286- 3709 Jun, Bipolar disorder, current episode mixed, moderate F31.62 ; Methamphetamine use disorder, severe, 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 ; Cocaine use disorder, moderate, dependence F14.20 ; Tobacco use Z72.0 and GAVIN ( generalized anxiety disorder) F41.1 [place] [id number] [place], [place] [address] Jun, Encounter for medication monitoring Z51.[address] 57415- 6300 May, Depression, unspecified depression type F32.9 [place] [id number] [place] [address] 60714- 5240 May, [place] 944716- 6243 May, Bipolar disorder, current episode mixed, moderate F31.62 ; Methamphetamine use disorder, severe, 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 ; Cocaine use disorder, moderate, dependence F14.20 ; Tobacco use Z72.0 and GAVIN ( generalized anxiety disorder) F41.1 [place] [address] [id number] [place] [address] 14360- 7349 Apr, Low back pain M54.5 [place] [phone]- 1951 Apr, Essential hypertension I10 ; Chronic hepatitis C without hepatic coma B18.2 ; Low back pain M54.5 ; Other chronic pain G89.29 and Depression, unspecified depression type F32.9 [place] [id number] [place] [address] 48694- 1350 Jan, Encounter for immunization Z23 IMMUNIZATIONS No Known Immunizations SOCIAL HISTORY Never Assessed REASON FOR VISIT PLAN OF CARE VITAL SIGNS MEDICATIONS Medication Instructions Dosage Frequency Start Date End Date Duration Status Lisinopril-Hydrochlorothiazide 10-12.5 MG Orally Once a day 1 tablet 24h Active RESULTS No Results PROCEDURES No Known [...]
--- OUTSIDE RECORDS SUMMARY | 2018-06-18 13:57 | XMS REPORT ---
Demographics Address [address] [place] [address] Preferred Language Unknown Marital Status Unknown Anglican Affiliation Unknown Race Unknown Ethnic Group Unknown Author Author LOCO TOYIN Organization [facility] Address [address] [place] [address] Care Team Providers Care Controls Engineer Name Role Phone PARISHROSMERY RODRIGUEZA Unavailable PROBLEMS Type Condition ICD9-CM Code LZT42-GD Code Onset Dates Condition Status SNOMED Code Problem Other chronic pain G89.29 Active 29666722 Problem Depression, unspecified depression type F32.9 Active 30700455 Problem Essential hypertension I10 Active 61092236 Problem Low back pain M54.5 Active 595903454 Problem Bipolar disorder, current episode mixed, moderate F31.62 Active 536041261 Problem Tobacco use Z72.0 Active 253081294 Problem Cocaine use disorder, moderate, dependence F14.20 Active 13524465 Problem Chronic hepatitis C without hepatic coma B18.2 Active 090700033 Problem GAVIN (generalized anxiety disorder) F41.1 Active 95897607 Problem Methamphetamine use disorder, severe, 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 Active 80870061 ALLERGIES No Information ENCOUNTERS Encounter Location Date Diagnosis [facility] [address] [place] [address] 66732- 4662 Aug, [place] [address] [place] [address] 42869- 4449 July, Bipolar disorder, current episode mixed, moderate F31.62 [facility] [address] [place] [address] 28371- 0614 Jun, Bipolar disorder, current episode mixed, moderate F31.62 [facility] [id number] [place] [address] 56398- 3505 Jun, [facility] [address] [place] [address] 98808- 2427 Jun, Bipolar disorder, current episode mixed, moderate F31.62 ; Methamphetamine use disorder, severe, 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 ; Cocaine use disorder, moderate, dependence F14.20 ; Tobacco use Z72.0 and GAVIN ( generalized anxiety disorder) F41.1 [place] [address] [id number] [place] [phone]26 Jun, Encounter for medication monitoring Z51.[address] 0[address]47- 8966 May, Depression, unspecified depression type F32.9 [place] [address] 42187- 2623 May, [place] 824304- 0710 May, Bipolar disorder, current episode mixed, moderate F31.62 ; Methamphetamine use disorder, severe, 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 ; Cocaine use disorder, moderate, dependence F14.20 ; Tobacco use Z72.0 and GAVIN ( generalized anxiety disorder) F41.1 [place] [address] [id number] [place] [address] 60724- 4615 Apr, Low back pain M54.[address] 46459- 5172 Apr, Essential hypertension I10 ; Chronic hepatitis C without hepatic coma B18.2 ; Low back pain M54.5 ; Other chronic pain G89.29 and Depression, unspecified depression type F32.9 [place] [address] [id number] [place] [address] 00901- 0395 Jan, Encounter for immunization Z23 IMMUNIZATIONS No Known Immunizations SOCIAL HISTORY Never Assessed REASON FOR VISIT f/u, contract PLAN OF CARE Activity Details Follow Up 3 Weeks-, 4 Weeks Reason: VITAL SIGNS Height 64 in 2017-06-16 Weight 174 lbs 2017-06-16 BMI 29.86 kg/m2 2017-06-16 Blood pressure systolic 132 mmHg 2017-06-16 Blood pressure diastolic 78 mmHg 2017-06-16 MEDICATIONS Medication Instructions Dosage Frequency Start Date End Date Duration Status Ambien 10 mg Orally Once a day, prn sleep 1 tablet at bedtime as needed Active HydrOXYzine HCl 100 mg Orally Three times a day as needed 1 tablets May, 30 days Active Acetaminophen 325 MG Orally every 4 hrs 2 tablets as needed 4h Active Cream Base - Not-Taking Lisinopril-Hydrochlorothiazide 10-12.5 MG Orally Once a day 1 tablet 24h Active Oxycodone HCl 5 mg Orally every 6 hrs 1-2 tablet as needed 6h Not- Taking Carvedilol 25 MG Orally 2 times a day 12h Active Seroquel 100 MG Orally Once a day 0.5 tablet every night for 3 nights and then 1 tablet every night 24h Jun, 30 day(s) Active Seroquel 25 MG Orally BId prn for anxiety, irritability 0.5-1 tablet Jun, 30 day(s) Active Restasis 0.05 % Ophthalmic Twice a day 1 drop into affected eye 12h Active Methocarbamol 750 MG 1 TABLET 4 TIMES A DAY NEEDED ORALLY 90 Active Gabapentin 300 MG Orally Three times a day 1 capsule 8h Active RESULTS No Results PROCEDURES No Known [...]
--- OUTSIDE RECORDS SUMMARY | 2018-06-18 13:57 | XMS REPORT ---
Demographics Address [address] [place] [address] Preferred Language Unknown Marital Status Unknown Adventism Affiliation Unknown Race Unknown Ethnic Group Unknown Author Author LOCOROSMERYA Organization [facility] Address [address] [place] [address] Care Team Providers Care Business Banking Sales Assistant Name Role Phone PARISHROSMERY RODRIGUEZA Unavailable PROBLEMS Type Condition ICD9-CM Code EKW61-NC Code Onset Dates Condition Status SNOMED Code Problem Other chronic pain G89.29 Active 76417953 Problem Depression, unspecified depression type F32.9 Active 65825937 Problem Essential hypertension I10 Active 69670836 Problem Low back pain M54.5 Active 667012805 Problem Bipolar disorder, current episode mixed, moderate F31.62 Active 649580851 Problem Tobacco use Z72.0 Active 226251085 Problem Cocaine use disorder, moderate, dependence F14.20 Active 61173396 Problem Chronic hepatitis C without hepatic coma B18.2 Active 320025325 Problem GAVIN (generalized anxiety disorder) F41.1 Active 05232670 Problem Methamphetamine use disorder, severe, 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 Active 25404755 ALLERGIES Substance Reaction Event Type Date Status Tetracycline HCl hives Drug Allergy May, Active Erythromycin hives Drug Allergy May, Active ENCOUNTERS Encounter Location Date Diagnosis [facility] [address] [place] [address] 51450- 3072 Aug, [facility] [address] [address] [id number] [place] [address] 89578- 6233 July, Bipolar disorder, current episode mixed, moderate F31.62 [facility] [address] [place] [address] 22812- 8481 Jun, Bipolar disorder, current episode mixed, moderate F31.62 [facility] [address] [address] Jun, [facility] [id number] [place] [address] 22130- 0878 Jun, Bipolar disorder, current episode mixed, moderate F31.62 ; Methamphetamine use disorder, severe, 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 ; Cocaine use disorder, moderate, dependence F14.20 ; Tobacco use Z72.0 and GAVIN ( generalized anxiety disorder) F41.1 [place] [id number] [place] [address] 77301- 2347 Jun, Encounter for medication monitoring Z51.81 [place] [address] 49840- 5113 May, Depression, unspecified depression type F32.9 [place] [address] 72346- 0613 May, [place] [address] 76871- 5627 May, Bipolar disorder, current episode mixed, moderate F31.62 ; Methamphetamine use disorder, severe, 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 ; Cocaine use disorder, moderate, dependence F14.20 ; Tobacco use Z72.0 and GAVIN ( generalized anxiety disorder) F41.1 [place] [address] 89248- 5689 Apr, Low back pain M54.5 [place] [address] 80473- 3754 Apr, Essential hypertension I10 ; Chronic hepatitis C without hepatic coma B18.2 ; Low back pain M54.5 ; Other chronic pain G89.29 and Depression, unspecified depression type F32.9 [place] [address] [address] [id number] [place] [address] 16458- 7574 Jan, Encounter for immunization Z23 IMMUNIZATIONS No Known Immunizations SOCIAL HISTORY Never Assessed REASON FOR VISIT stephen-Tanya VACA PLAN OF CARE Activity Details Follow Up 4 Weeks Reason: VITAL SIGNS Height 64 in 2017-05-19 Weight 173.5 lbs 2017-05-19 Heart Rate 84 bpm 2017-05-19 Respiratory Rate 20 2017-05-19 BMI 29.78 kg/m2 2017-05-19 Blood pressure systolic 138 mmHg 2017-05-19 Blood pressure diastolic 96 mmHg 2017-05-19 MEDICATIONS Medication Instructions Dosage Frequency Start Date End Date Duration Status Gabapentin 300 MG Orally Three times a day 1 capsule 8h Active Abilify 5 MG Orally Once a day 1 tablet 24h May, 30 day(s) Active Lisinopril-Hydrochlorothiazide 10-12.5 MG Orally Once a day 1 tablet 24h Active Cream Base - Active Oxycodone HCl 5 mg Orally every 6 hrs 1-2 tablet as needed 6h Active Carvedilol 25 MG Orally 2 times a day 12h Active Methocarbamol 750 MG 1 TABLET 4 TIMES A DAY NEEDED ORALLY 90 Active Acetaminophen 325 MG Orally every 4 hrs 2 tablets as needed 4h Active Ambien 10 mg Orally Once a day, prn sleep 1 tablet at bedtime as needed Active HydrOXYzine HCl 25 MG Orally Three times a day as needed 1-2 tablets May, 30 day(s) Active RESULTS No Results PROCEDURES [...]
--- OUTSIDE RECORDS SUMMARY | 2018-06-18 13:57 | XMS REPORT ---
Demographics Address [address] [place] [address] Preferred Language Unknown Marital Status Unknown Mormonism Affiliation Unknown Race Unknown Ethnic Group Unknown Author Author EUGENE NAIK [facility] Address [address] [place] [address] Care Team Providers Care Aadc Plans Staff Officer Name Role Phone EUGENE NAIK Unavailable PROBLEMS Type Condition ICD9-CM Code ZDZ19-YT Code Onset Dates Condition Status SNOMED Code Problem Other chronic pain G89.29 Active 29309219 Problem Depression, unspecified depression type F32.9 Active 35995982 Problem Essential hypertension I10 Active 24535905 Problem Low back pain M54.5 Active 948948830 Problem Bipolar disorder, current episode mixed, moderate F31.62 Active 207058698 Problem Tobacco use Z72.0 Active 793726550 Problem Cocaine use disorder, moderate, dependence F14.20 Active 38160591 Problem Chronic hepatitis C without hepatic coma B18.2 Active 487121248 Problem GAVIN (generalized anxiety disorder) F41.1 Active 20036551 Problem Methamphetamine use disorder, severe, 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 Active 06685889 ALLERGIES No Information ENCOUNTERS Encounter Location Date Diagnosis [place] [address] [place] [address] 45269- 3121 July, Bipolar disorder, current episode mixed, moderate F31.62 [place] [address] [place] [id number] [place] [address] 24723- 7160 Jun, Bipolar disorder, current episode mixed, moderate F31.62 [place] [address] [place] [address] 95675- 0497 Jun, [place] [address] 11975- 1693 Jun, Bipolar disorder, current episode mixed, moderate F31.62 ; Methamphetamine use disorder, severe, 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 ; Cocaine use disorder, moderate, dependence F14.20 ; Tobacco use Z72.0 and GAVIN ( generalized anxiety disorder) F41.1 [place] [address] [place] [address] 42469- 9454 Jun, Encounter for medication monitoring Z51.81 [place] [address] [address] [id number] [place] [address] 67869- 3825 May, Depression, unspecified depression type F32.9 [place] [address] [address] [id number] [place] [address] 54223- 7524 May, [place] [address] [address] [id number] [place] [address] 93947- 0975 07 May, 2017 Bipolar disorder, current episode mixed, moderate F31.62 ; Methamphetamine use disorder, severe, 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 ; Cocaine use disorder, moderate, dependence F14.20 ; Tobacco use Z72.0 and GAVIN ( generalized anxiety disorder) F41.1 [place] [address] [address] [id number] [place] [address] 18063- 4853 26 Apr, 2017 Low back pain M54.5 [place] [address] [address] [id number] [place] [address] 26442- 6828 26 Apr, 2017 Essential hypertension I10 ; Chronic hepatitis C without hepatic coma B18.2 ; Low back pain M54.5 ; Other chronic pain G89.29 and Depression, unspecified depression type F32.9 [place] [address] [place] [address] 83449- 8617 Jan, Encounter for immunization Z23 IMMUNIZATIONS Vaccine Route Administration Date Status FLUARIX QUAD (3 AND UP) 2016 IM Intramuscular Jan 15, 2017 Administered SOCIAL HISTORY Never Assessed REASON FOR VISIT Flu shot PLAN OF CARE VITAL SIGNS MEDICATIONS Unknown Medications RESULTS No Results PROCEDURES Procedure Date Ordered Result Body Site FLUARIX QUAD (3 AND UP) 2017 Jan 15, 2017 SINGLE IMMUNIZATION ADMIN Jan 15, 2017 INSTRUCTIONS MEDICATIONS ADMINISTERED No Known Medications MEDICAL [...]
--- OUTSIDE RECORDS SUMMARY | 2018-06-18 13:57 | XMS REPORT ---
Demographics Address [address] [place] [address] Preferred Language Unknown Marital Status Unknown Cheondoism Affiliation Unknown Race Unknown Ethnic Group Unknown Author Author RAFFAELE HUI Organization [facility] Address [address] [place] [address] Care Team Providers Care Conveyor Technician Name Role Phone RAFFAELE HUI Unavailable PROBLEMS Type Condition ICD9-CM Code NFT72-RO Code Onset Dates Condition Status SNOMED Code Problem Other chronic pain G89.29 Active 97964935 Problem Depression, unspecified depression type F32.9 Active 00793628 Problem Essential hypertension I10 Active 22030085 Problem Low back pain M54.5 Active 016637348 Problem Bipolar disorder, current episode mixed, moderate F31.62 Active 650420292 Problem Tobacco use Z72.0 Active 775643071 Problem Cocaine use disorder, moderate, dependence F14.20 Active 53903999 Problem Chronic hepatitis C without hepatic coma B18.2 Active 606428113 Problem GAVIN (generalized anxiety disorder) F41.1 Active 25521542 Problem Methamphetamine use disorder, severe, 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 Active 55437838 ALLERGIES No Information ENCOUNTERS Encounter Location Date Diagnosis [place] [address] [place] [id number] [place] [address] 12498- 1047 Aug, [place] [address] 12164- 4964 July, Bipolar disorder, current episode mixed, moderate F31.62 [facility] [id number] [place] [address] 38291- 3618 Jun, Bipolar disorder, current episode mixed, moderate F31.62 [place] [address] 54628- 4839 Jun, [place] [address] [address] [id number] [place] [address] 81838- 2828 Jun, Bipolar disorder, current episode mixed, moderate F31.62 ; Methamphetamine use disorder, severe, 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 ; Cocaine use disorder, moderate, dependence F14.20 ; Tobacco use Z72.0 and GAVIN ( generalized anxiety disorder) F41.1 [place] [address] [place] 87099397- 9590 Jun, Encounter for medication monitoring Z51.[address] 0[address]79- 5179 May, Depression, unspecified depression type F32.9 [place] [id number] [place] [address] 19401- 9336 May, [place] 434961- 3242 May, Bipolar disorder, current episode mixed, moderate F31.62 ; Methamphetamine use disorder, severe, 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 ; Cocaine use disorder, moderate, dependence F14.20 ; Tobacco use Z72.0 and GAVIN ( generalized anxiety disorder) F41.1 [place] [address] [id number] [place] [address] 64052- 7527 Apr, Low back pain M54.5 [place] 76221205- 5758 Apr, Essential hypertension I10 ; Chronic hepatitis C without hepatic coma B18.2 ; Low back pain M54.5 ; Other chronic pain G89.29 and Depression, unspecified depression type F32.9 [place] [id number] [place] [address] 61130- 7973 Jan, Encounter for immunization Z23 IMMUNIZATIONS No Known Immunizations SOCIAL HISTORY Never Assessed REASON FOR VISIT Waiting for return call PLAN OF CARE VITAL SIGNS [...]
[2018-06-18] MEDS ORDERED: fentaNYL INJECTION 100 MCG/2 ML AMP IVP ONE (14:00)
--- NOTE | 2018-06-18 14:17 | Diagnostic Imaging Report ---
INDICATION: Low back pain. Three views were obtained. FINDINGS: The alignment of the lumbar spine is normal. There are postsurgical changes of L4, L5, and S1 posterior instrumentation with bilateral pedicle screws and rods. There is no spondylolysis or spondylolisthesis. There are otherwise mild degenerative changes. IMPRESSION: Stable postsurgical changes of lower lumbar spine, otherwise mild diffuse lumbar spondylosis. Dictated by: Dictated on workstation # [id number]
--- NOTE | 2018-06-18 15:55 | ED Back Pain ---
General Chief Complaint: Hip/Pelvic Problems Stated Complaint: LOWER BACK/HIP PAIN Nursing Triage Note: PT HAS CHRONIC HIP PAIN AND LOW BACK PAIN WORSENING TODAY. Nursing Sepsis Screen: No Definite Risk Source of Information: Patient Exam Limitations: No Limitations History of Present Illness Date Seen by Provider: Jun 18, 2018 Time Seen by Provider: 14:30 Initial Comments This 52-year-old white female presents with complaint of low back and hip pain and has been progressive for the last 24 hours. The patient had surgery on her low back for lumbar disc disease in the past. Fortunately she denies paralysis or loss of bowel or bladder control. The patient states that she feels as if her mental screws have come loose in her back. Patient denies associated fever, chills, dysuria, flank pain, nausea or vomiting. Allergies and Home Medications Allergies Coded Allergies: No Known Drug Allergies (Unverified , 06/18/18) Patient Home Medication List Home Medication List Reviewed: Yes Review of Systems Constitutional: No chills, No fever EENTM: No ear pain Respiratory: No cough Cardiovascular: No chest pain Gastrointestinal: No abdominal pain, No nausea Genitourinary: No dysuria, No frequency Musculoskeletal: see HPI, back pain, joint pain (hip, right.) Skin: No rash Psychiatric/Neurological: No Symptoms Reported Past Wfmojfr-Pnurya-Leatzj Hx Past Med/Social Hx: Reviewed Nursing Past Med/Soc Hx Patient Social History Alcohol Use: Denies Use Recreational Drug Use: No Smoking Status: Current Everyday Smoker Type Used: Cigarettes 2nd Hand Smoke Exposure: No Recent Foreign Travel: No Contact w/Someone Who Travel: No Recent Infectious Disease Expo: No Recent Hopitalizations: No Physical Abuse: No Sexual Abuse: No Mistreated: No Fear: No Seasonal Allergies Seasonal Allergies: No Past Medical History Surgeries: Yes Orthopedic Respiratory: Yes COPD Cardiac: Yes Hypertension Neurological: No Genitourinary: No Gastrointestinal: No Musculoskeletal: Yes Chronic Back Pain Endocrine: Yes Diabetes, Non-Insulin dep HEENT: No Cancer: No Anxiety, Depression Integumentary: No Physical Exam Vital Signs Vital Signs - First Documented 06/18/18 13:43 Temp 98.2 Pulse 103 Resp 24 B/P (MAP) 150/92 (111) O2 Delivery Room Air Capillary Refill : Less Than 3 Seconds Height, Weight, BMI Height: 5'4.00" Weight: 185lbs. oz. 83.609412qw; BMI Method:Actual General Appearance: No Apparent Distress, WD/WN HEENT: Normal ENT Inspection Neck: Normal Inspection Cardiovascular: Regular Rate, Rhythm Respiratory: Lungs Clear Gastrointestinal: Normal Bowel Sounds Extremity: Normal Inspection, Normal Range of Motion Neurologic/Psychiatric: Alert, Oriented x3, No Motor/Sensory Deficits, Normal Mood/Affect Skin: Normal Color, Warm/Dry Progress/Results/Core Measures Results/Orders My Orders Orders - MADDI MURRIETA MD Fentanyl Injection (Sublimaze Injection (06/18/18 14:00) Lumbar Spine 2 Or 3 View (06/18/18 13:57) Medications Given in ED Current Medications Medications Dose Ordered Sig/Jorge Route Start Time Stop Time Status Last Admin Dose Admin Fentanyl Citrate 50 mcg ONCE ONCE IVP 06/18/18 14:00 06/18/18 14:01 DC 06/18/18 14:48 50 MCG Vital Signs/I&O 06/18/18 13:43 Temp 98.2 Pulse 103 Resp 24 B/P (MAP) 150/92 (111) O2 Delivery Room Air Blood Pressure Mean: 111 Progress Progress Note : Time: 15:52 Progress Note Patient was given 50 g of fentanyl IM with good relief of her pain. X-rays demonstrated no evidence of broken or displaced fixation devices. I discussed findings with patient. She asked for a few Vicodin for her residual back pain. I asked that she follow-up with her doctor on Wednesday. I invited her to return to the emergency department she had any further problems or questions. Departure Impression Primary Impression: Back pain Qualified Codes: M54.5 - Low back pain Disposition: HOME, SELF-CARE Condition: Improved Departure-Patient Inst. Decision time for Depature: 15:53 Referrals: TARIQ FOSTER APRN (PCP) Primary Care Physician Patient Instructions: Low Back Pain in Adults Add. Discharge Instructions: Vicodin for pain. Close follow-up with your doctor on Wednesday. Return of any problems or questions. All discharge instructions reviewed with patient and/or family. Voiced understanding. MADDI MURRIETA MD Jun 18, 2018 15:55
[2018-06-18 16:01] VITALS: BP 128/68
== END 2018-06-18 16:00 | disposition home or self-care (01) ==
LOC: EDUNIT# 13:34 → ER FS 13:36
DX: M54.5 Low back pain (principal); J44.9 Chronic obstructive pulmonary disease, unspecified; I10 Essential (primary) hypertension; E11.9 Type 2 diabetes mellitus without complications; F41.9 Anxiety disorder, unspecified; F32.9 Major depressive disorder, single episode, unspecified; F17.210 Nicotine dependence, cigarettes, uncomplicated; Z98.890 Other specified postprocedural states
CPT/HCPCS: 72100; 96374

== ENCOUNTER 2018-10-04 12:54 | Emergency (ER) | payer MEDICAID ==
[~2018-10-04] VITALS: Ht 162.6 cm; Wt 86.2 kg
--- OUTSIDE RECORDS SUMMARY | 2018-10-04 12:59 | XMS REPORT ---
Author Author KANG SCOUT [facility] Address [address] [place] [address] Care Team Providers Care Security Tester Name Role Phone SCOUT [place] Unavailable PROBLEMS Type Condition ICD9-CM Code AXR69-XP Code Onset Dates Condition Status SNOMED Code Problem Lumbar canal stenosis M48.061 Nov, Active 78660481 Problem Alleged drug diversion Z65.3 May, Active 95282263 Problem Pure hypercholesterolemia E78.00 Dec, Active 274414818 Problem Varicose vein of leg I83.90 Aug, Active 55540823 Problem Family planning Z30.09 Jun, Active 75725658 Problem Back pain M54.9 Dec, Active 070475767 Problem Cigarette nicotine dependence, uncomplicated F17.210 Nov, Active 162772892 Problem Cocaine use disorder, moderate, dependence F14.20 Active 34952859 Problem Methamphetamine use disorder, severe, 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 Active 95120619 Problem Chronic pain of multiple joints M25.50 May, Active 88583804 Problem Neural foraminal stenosis, multilevel M43.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 Nov, Active Problem Rheumatoid arthritis involving multiple sites with positive rheumatoid factor M05.79 July, Active 40200201 Problem Encounter for pain management counseling Z71.89 Jun, Active 717899997 Problem Chronic hepatitis C without hepatic coma B18.2 Active 727668262 Problem Depression with anxiety F41.8 Aug, Active 784301139 Problem Low back pain M54.5 Active 743337432 Problem Essential hypertension I10 Active 19343293 Problem Depression, unspecified depression type F32.9 Active 21856523 Problem Other chronic pain G89.29 Active 20526637 Problem Bipolar disorder, current episode mixed, moderate F31.62 Active 712176638 Problem Tobacco use Z72.0 Active 182774063 Problem GAVIN (generalized anxiety disorder) F41.1 Active 95292498 Problem Pure hypercholesterolemia, unspecified E78.00 Active 703062958 Problem Anxiety F41.9 Oct, Active 02515777 Problem Verruca plantaris B07.0 Active 51366925 Problem Degenerative disc disease, lumbar M51.36 Nov, Active 90230870 Problem Unspecified viral hepatitis C without hepatic coma B19.20 Mar, Active 08212477 Problem Chronic post-traumatic stress disorder (PTSD) F43.12 Active 44787003 Problem New onset type 2 diabetes mellitus E11.9 Active 39146848 Problem Uncontrolled type 2 diabetes mellitus with hyperglycemia E11.65 Active 915934378 Problem Cigarette smoker F17.210 Active 36802883 ALLERGIES No Information ENCOUNTERS Encounter Location Date Diagnosis [facility] [address], [place] [address] Oct, [facility] [address] [place] [address] Aug, Chronic hepatitis C without hepatic coma B18.[address] [address] Aug, [address] [address] Aug, [facility] [address], [place] [address] Aug, [address] [address] Aug, [facility] [address] [address] Aug, [facility] [address], [place] [address] Aug, [facility] [id number], [place] [address] July, Chronic hepatitis C without hepatic coma B18.2 [facility] [address] [place] [address] July, [facility] [id number], [place] [address] July, [facility] [address] [address] July, [facility] [address], [place] [address] Jun, [address] [address] Jun, [address] [address] Jun, New onset type 2 diabetes mellitus E11.[address] [address] Jun, New onset type 2 diabetes mellitus E11.9 ; Uncontrolled type 2 diabetes mellitus with hyperglycemia E11.65 ; Pure hypercholesterolemia, unspecified E78.00 ; Verruca plantaris B07.0 and Cigarette smoker F17.[address] [address] Jun, [address] [address] Jun, [address] [address] Jun, [address] [address] May, Uncontrolled type 2 diabetes mellitus with hyperglycemia E11.[address] [address] May, Encounter for immunization Z23 [facility] [id number], [place] [address] May, [address] [address] May, Uncontrolled type 2 diabetes mellitus with hyperglycemia E11.65 and New onset type 2 diabetes mellitus E11.9 [facility] [address], [place] [address] May, New onset type 2 diabetes mellitus E11.9 [facility] [id number], [place] [address] May, [facility] [address], [place] [address] May, [address] [address] May, Chronic hepatitis C without hepatic coma B18.[address] [address] May, Chronic hepatitis C without hepatic coma B18.2 [facility] [address] [place] [address] May, [facility] [address], [place] [address] May, [facility] [address], [place] [address] May, [facility] [address] [place] [address] May, Chronic hepatitis C without hepatic coma B18.2 and Encounter for immunization Z23 [place] [address], [place] [address] Apr, Bipolar disorder, current episode mixed, moderate F31.62 ; Chronic post-traumatic stress disorder (PTSD) F43.12 ; GAVIN (generalized anxiety disorder) F41.1 ; Tobacco use Z72.0 ; Cocaine use disorder, moderate, dependence F14.20 and Methamphetamine use disorder, severe, 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 [address] Apr, [facility] [address], [place] [address] Apr, New onset type 2 diabetes mellitus E11.9 [place] [address], [place] [address] Apr, New onset type 2 diabetes mellitus E11.[address] [address] Apr, Elevated glucose R73.[address] [address] Apr, Essential hypertension I10 and Chronic hepatitis C without hepatic coma B18.2 [facility] [address], [place] [address] Apr, [facility] [address], [place] [address] Apr, [facility] [address], [place] [address] Apr, Chronic hepatitis C without hepatic coma B18.[address] [address] Apr, Bipolar disorder, current episode mixed, moderate F31.62 ; GAVIN (generalized anxiety disorder) F41.1 ; Other chronic pain G89.29 ; Chronic hepatitis C without hepatic coma B18.2 and Essential hypertension I10 [facility] [address], [place] [address] Apr, [facility] [id number] [place] [address] Mar, [facility] [address], [place] [address] Feb, [facility] [id number] [place] [address] Feb, [facility] [address], [place] [address] Feb, Bipolar disorder, current episode mixed, moderate F31.62 [facility] [address], [place] [address] Feb, [facility] [id number] [place] [address] Jan, Bipolar disorder, current episode mixed, moderate F31.62 ; Methamphetamine use disorder, severe, 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 ; Cocaine use disorder, moderate, dependence F14.20 ; Tobacco use Z72.0 and GAVIN (generalized anxiety disorder) F41.1 [facility] [address], [place] [address] Dec, [facility] [id number] [place] [address] Dec, [facility] [id number] [place] [address] Aug, [facility] [id number] [place] [address] July, Bipolar disorder, current episode mixed, moderate F31.62 [facility] [id number] [place] [address] Jun, Bipolar disorder, current episode mixed, moderate F31.62 [facility] [id number] [place] [address] Jun, [facility] [id number] [place] [address] Jun, Bipolar disorder, current episode mixed, moderate F31.62 ; Methamphetamine use disorder, severe, 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 ; Cocaine use disorder, moderate, dependence F14.20 ; Tobacco use Z72.0 and GAVIN (generalized anxiety disorder) F41.1 [place] [address] [place] [address] Jun, Encounter for medication monitoring Z51.81 [place] [address] [place] [address] May, Depression, unspecified depression type F32.9 [place] [address] [place] [address] May, [facility] [id number] [place] [address] May, Bipolar disorder, current episode mixed, moderate F31.62 ; Methamphetamine use disorder, severe, 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 ; Cocaine use disorder, moderate, dependence F14.20 ; Tobacco use Z72.0 and GAVIN (generalized anxiety disorder) F41.1 [facility] [address], [place] [address] Apr, Low back pain M54.5 [facility] [id number], [place] [address] Apr, Essential hypertension I10 ; Chronic hepatitis C without hepatic coma B18.2 ; Low back pain M54.5 ; Other chronic pain G89.29 and Depression, unspecified depression type F32.[address] [id number] [address] Jan, Encounter for immunization Z23 IMMUNIZATIONS No Known Immunizations SOCIAL HISTORY Never Assessed REASON FOR VISIT DM ed PLAN OF CARE VITAL SIGNS MEDICATIONS Unknown [...]
--- OUTSIDE RECORDS SUMMARY | 2018-10-04 13:00 | XMS REPORT ---
Author Author ALEXANDRA PATEL Organization [facility] Address [address] [place] [address] Care Team Providers Care Procurement Consultant Name Role Phone ALEXANDRA PATEL Unavailable PROBLEMS Type Condition ICD9-CM Code TOI27-GC Code Onset Dates Condition Status SNOMED Code Problem Neural foraminal stenosis, multilevel 724.9 Nov, Active 49546624 Problem Encounter for pain management counseling V65.49 Jun, Active 518517226 Problem Neural foraminal stenosis, multilevel M43.8X9 Nov, Active Problem Chronic pain of multiple joints M25.50 May, Active 78451151 Problem Chronic pain of multiple joints 719.49 May, Active 14401613 Problem Lumbar canal stenosis 724.02 Nov, Active 77906711 Problem Unspecified viral hepatitis C without hepatic coma B19.20 Mar, Active 20708266 Problem Rheumatoid arthritis involving multiple sites with positive rheumatoid factor 714.0 July, Active 56204135 Problem Alleged drug diversion Z65.3 May, Active 32142805 Problem Chronic hepatitis C without hepatic coma B18.2 Active 109715542 Problem Anxiety F41.9 Oct, Active 64198340 Problem Other chronic pain G89.29 Active 52478356 Problem Degenerative disc disease, lumbar M51.36 Nov, Active 39939750 Problem Alleged drug diversion V62.5 May, Active 62267444 Problem Depression with anxiety F41.8 Aug, Active 927311012 Problem Essential hypertension, benign I10 Jan, Active 1089741 Problem Rheumatoid arthritis involving multiple sites with positive rheumatoid factor M05.79 July, Active 26668354 Problem Family planning Z30.09 Jun, Active 78652557 Problem Back pain 724.5 Dec, Active 078588291 Problem Pure hypercholesterolemia E78.00 Dec, Active 563470948 Problem Anxiety 300.00 Oct, Active 50762119 Problem Cigarette nicotine dependence, uncomplicated F17.210 Nov, Active 369040750 Problem Pure hypercholesterolemia 272.0 09 Dec, 2007 Active 982077812 Problem Varicose vein of leg I83.90 Aug, Active 19450259 Problem Essential hypertension, benign 401.1 Jan, Active 5355494 Problem Low back pain M54.5 Active 610175675 Problem Back pain M54.9 Dec, Active 119618959 Problem Depression, unspecified depression type F32.9 Active 31186709 Problem Unspecified viral hepatitis C without hepatic coma 070.70 Mar, Active 33022532 Problem Essential hypertension I10 Active 06296656 Problem Cocaine use disorder, moderate, dependence F14.20 Active 02715698 Problem Methamphetamine use disorder, severe, 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 Active 70484899 Problem New onset type 2 diabetes mellitus E11.9 Active 84660571 Problem Cigarette nicotine dependence, uncomplicated 305.1 Nov, Active 161020916 Problem Family planning V25.09 Jun, Active 32452167 Problem Uncontrolled type 2 diabetes mellitus with hyperglycemia E11.65 Active 110003306 Problem Lumbar canal stenosis M48.061 Nov, Active 36588491 Problem Varicose vein of leg 454.9 Aug, Active 27056764 Problem Depression with anxiety 300.4 Aug, Active 185302564 Problem Encounter for pain management counseling Z71.89 Jun, Active 368986090 Problem Degenerative disc disease, lumbar 722.52 Nov, Active 54980639 Problem GAVIN (generalized anxiety disorder) F41.1 Active 75398522 Problem Bipolar disorder, current episode mixed, moderate F31.62 Active 463386902 Problem Tobacco use 305.1 Nov, Active 069834625 Problem Tobacco use Z72.0 Active 247999532 Problem Chronic post-traumatic stress disorder (PTSD) F43.12 Active 56596846 ALLERGIES No Information ENCOUNTERS Encounter Location Date Diagnosis [address] [address] Jun, [address] [address] Jun, [address] [address] Jun, [facility] [address] [address] Jun, [facility] [address] [address] May, Uncontrolled type 2 diabetes mellitus with hyperglycemia E11.65 [facility] [address] [address] May, Encounter for immunization Z23 [facility] [address], [place] [address] May, [facility] [address] [address] May, Uncontrolled type 2 diabetes mellitus with hyperglycemia E11.65 and New onset type 2 diabetes mellitus E11.9 [facility] [address], [place] [address] May, New onset type 2 diabetes mellitus E11.9 [facility] [address], [place] [address] May, [facility] [address], [place] [address] May, [facility] [address] [address] May, Chronic hepatitis C without hepatic coma B18.2 [facility] [address] [address] May, Chronic hepatitis C without hepatic coma B18.2 [facility] [address] [place] [address] May, [facility] [address], [place] [address] May, [facility] [id number], [place] [address] May, [facility] [address] [place] [address] May, Chronic hepatitis C without hepatic coma B18.2 and Encounter for immunization Z23 [facility] [id number], [place] [address] Apr, Bipolar disorder, current episode mixed, moderate F31.62 ; Chronic post-traumatic stress disorder (PTSD) F43.12 ; GAVIN (generalized anxiety disorder) F41.1 ; Tobacco use Z72.0 ; Cocaine use disorder, moderate, dependence F14.20 and Methamphetamine use disorder, severe, 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 [address] Apr, [facility] [id number] [place] [address] Apr, New onset type 2 diabetes mellitus E11.9 [facility] [id number] [place] [address] Apr, New onset type 2 diabetes mellitus E11.[address] [address] Apr, Elevated glucose R73.[address] [address] Apr, Essential hypertension I10 and Chronic hepatitis C without hepatic coma B18.2 [facility] [id number] [place] [address] Apr, [facility] [id number] [place] [address] Apr, [facility] [address] [place] [address] Apr, Chronic hepatitis C without hepatic coma B18.[address] [address] Apr, Bipolar disorder, current episode mixed, moderate F31.62 ; GAVIN (generalized anxiety disorder) F41.1 ; Other chronic pain G89.29 ; Chronic hepatitis C without hepatic coma B18.2 and Essential hypertension I10 [facility] [address] [place] [address] Apr, [facility] [id number] [place] [address] Mar, [facility] [address] [place] [address] Feb, [facility] [id number] [place] [address] Feb, [facility] [id number] [place] [address] Feb, Bipolar disorder, current episode mixed, moderate F31.62 [facility] [id number] [place] [address] Feb, [facility] [id number] [place] [address] Jan, Bipolar disorder, current episode mixed, moderate F31.62 ; Methamphetamine use disorder, severe, 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 ; Cocaine use disorder, moderate, dependence F14.20 ; Tobacco use Z72.0 and GAVIN (generalized anxiety disorder) F41.1 [facility] [id number] [place] [address] Dec, [facility] [id number] [place] [address] Dec, [facility] [id number] [place] [address] Aug, [facility] [address] [place] [address] July, Bipolar disorder, current episode mixed, moderate F31.62 [facility] [address] [place] [address] Jun, Bipolar disorder, current episode mixed, moderate F31.62 [facility] [id number] [place] [address] Jun, [facility] [address] [place] [address] Jun, Bipolar disorder, current episode mixed, moderate F31.62 ; Methamphetamine use disorder, severe, 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 ; Cocaine use disorder, moderate, dependence F14.20 ; Tobacco use Z72.0 and GAVIN (generalized anxiety disorder) F41.1 [place] [id number] [place], [place] [address] Jun, Encounter for medication monitoring Z51.81 [place] [id number] [place] [address] May, Depression, unspecified depression type F32.9 [place] [id number] [place] [address] May, [place] [address] May, Bipolar disorder, current episode mixed, moderate F31.62 ; Methamphetamine use disorder, severe, 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 ; Cocaine use disorder, moderate, dependence F14.20 ; Tobacco use Z72.0 and GAVIN (generalized anxiety disorder) F41.1 [place] [id number] [place] [address] Apr, Low back pain M54.5 [place] [address] Apr, Essential hypertension I10 ; Chronic hepatitis C without hepatic coma B18.2 ; Low back pain M54.5 ; Other chronic pain G89.29 and Depression, unspecified depression type F32.9 [place] [id number] [place] [address] Jan, Encounter for immunization Z23 IMMUNIZATIONS No Known Immunizations SOCIAL HISTORY Never Assessed REASON FOR VISIT josiah, Margaret Zuniga RDMS, RVT PLAN OF CARE VITAL SIGNS MEDICATIONS Unknown Medications RESULTS Name Result Date Reference Range Ultrasound : ABDOMEN LIMITED (IN-HOUSE) 2018-05-19 PROCEDURES Procedure Date Ordered Result Body Site ECHO EXAM OF ABDOMEN May 19, 2018 INSTRUCTIONS MEDICATIONS ADMINISTERED No Known Medications [...]
--- OUTSIDE RECORDS SUMMARY | 2018-10-04 13:00 | XMS REPORT ---
Author Author ALEXANDRA PATEL Organization [facility] Address [address] [place] [address] Care Team Providers Care Social Science Manager Name Role Phone ALEXANDRA PATEL Unavailable PROBLEMS Type Condition ICD9-CM Code DUJ48-JD Code Onset Dates Condition Status SNOMED Code Problem Unspecified viral hepatitis C without hepatic coma B19.20 Mar, Active 53120288 Problem Family planning V25.09 Jun, Active 14464223 Problem Varicose vein of leg 454.9 Aug, Active 02254437 Problem Depression with anxiety 300.4 Aug, Active 793330477 Problem Degenerative disc disease, lumbar 722.52 Nov, Active 08480538 Problem Bipolar disorder, current episode mixed, moderate F31.62 Active 826149551 Problem GAVIN (generalized anxiety disorder) F41.1 Active 58732195 Problem Back pain M54.9 Dec, Active 655178690 Problem Unspecified viral hepatitis C without hepatic coma 070.70 Mar, Active 81895145 Problem Anxiety F41.9 Oct, Active 08478490 Problem Degenerative disc disease, lumbar M51.36 26 Nov, 2014 Active 74867844 Problem Encounter for pain management counseling Z71.89 Jun, Active 469708663 Problem Depression with anxiety F41.8 Aug, Active 570514549 Problem Anxiety 300.00 Oct, Active 84494951 Problem Tobacco use 305.1 Nov, Active 308137098 Problem Essential hypertension, benign 401.1 Jan, Active 4068016 Problem Back pain 724.5 Dec, Active 022746069 Problem Pure hypercholesterolemia 272.0 Dec, Active 467666488 Problem Family planning Z30.09 04 Jun, 2010 Active 42420502 Problem Cigarette nicotine dependence, uncomplicated F17.210 Nov, Active 060228617 Problem Varicose vein of leg I83.90 Aug, Active 86126265 Problem Neural foraminal stenosis, multilevel 724.9 Nov, Active 35612520 Problem Alleged drug diversion V62.5 May, Active 82812837 Problem Encounter for pain management counseling V65.49 Jun, Active 926018118 Problem Neural foraminal stenosis, multilevel M43.8X9 Nov, Active Problem Alleged drug diversion Z65.3 May, Active 02615010 Problem Pure hypercholesterolemia E78.00 Dec, Active 241244082 Problem Essential hypertension, benign I10 Jan, Active 8011502 Problem Rheumatoid arthritis involving multiple sites with positive rheumatoid factor M05.79 July, Active 99697119 Problem Lumbar canal stenosis M48.061 Nov, Active 05676161 Problem Lumbar canal stenosis 724.02 Nov, Active 92207258 Problem Essential hypertension I10 Active 56735033 Problem Cigarette nicotine dependence, uncomplicated 305.1 Nov, Active 776280001 Problem Chronic hepatitis C without hepatic coma B18.2 Active 448554981 Problem Depression, unspecified depression type F32.9 Active 35281170 Problem Other chronic pain G89.29 Active 47971454 Problem Low back pain M54.5 Active 117299772 Problem Tobacco use Z72.0 Active 519050940 Problem Methamphetamine use disorder, severe, 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 Active 62265748 Problem Cocaine use disorder, moderate, dependence F14.20 Active 83653113 Problem Pure hypercholesterolemia, unspecified E78.00 Active 868865486 Problem Chronic pain of multiple joints M25.50 May, Active 28452651 Problem Verruca plantaris B07.0 Active 72547522 Problem Chronic pain of multiple joints 719.49 May, Active 94822202 Problem Rheumatoid arthritis involving multiple sites with positive rheumatoid factor 714.0 July, Active 33119028 Problem Chronic post-traumatic stress disorder (PTSD) F43.12 Active 75316070 Problem New onset type 2 diabetes mellitus E11.9 Active 55273396 Problem Uncontrolled type 2 diabetes mellitus with hyperglycemia E11.65 Active 235492801 Problem Cigarette smoker F17.210 Active 64321373 ALLERGIES No Information ENCOUNTERS Encounter Location Date Diagnosis [address] [address] July, [facility] [id number], [place] [address] Jun, [facility] [address] [address] Jun, [address] [address] Jun, New onset type 2 diabetes mellitus E11.[address] [address] Jun, New onset type 2 diabetes mellitus E11.9 ; Uncontrolled type 2 diabetes mellitus with hyperglycemia E11.65 ; Pure hypercholesterolemia, unspecified E78.00 ; Verruca plantaris B07.0 and Cigarette smoker F17.[address] [address] Jun, [address] [address] Jun, [address] [address] Jun, [address] [address] May, Uncontrolled type 2 diabetes mellitus with hyperglycemia E11.[address] [address] May, Encounter for immunization Z23 [facility] [id number], [place] [address] May, [address] [address] May, Uncontrolled type 2 diabetes mellitus with hyperglycemia E11.65 and New onset type 2 diabetes mellitus E11.9 [facility] [address] [facility] [id number] [address] May, New onset type 2 diabetes mellitus E11.9 [facility] [address] [facility] [id number], [place] [address] 14 May, 2018 [facility] [id number], [place] [address] 08 May, [address] [address] May, Chronic hepatitis C without hepatic coma B18.[address] [address] May, Chronic hepatitis C without hepatic coma B18.2 [facility] [address] [place] [address] May, [facility] [address], [place] [address] May, [facility] [id number] [place] [address] May, [facility] [address] [place] [address] May, Chronic hepatitis C without hepatic coma B18.2 and Encounter for immunization Z23 [facility] [address], [place] [address] Apr, Bipolar disorder, current episode mixed, moderate F31.62 ; Chronic post-traumatic stress disorder (PTSD) F43.12 ; GAVIN (generalized anxiety disorder) F41.1 ; Tobacco use Z72.0 ; Cocaine use disorder, moderate, dependence F14.20 and Methamphetamine use disorder, severe, 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 [address] Apr, [facility] [address], [place] [address] Apr, New onset type 2 diabetes mellitus E11.9 [facility] [address], [place] [address] Apr, New onset type 2 diabetes mellitus E11.[address] [address] Apr, Elevated glucose R73.[address] [address] Apr, Essential hypertension I10 and Chronic hepatitis C without hepatic coma B18.2 [facility] [address], [place] [address] Apr, [facility] [address], [place] [address] Apr, [facility] [id number] [place] [address] Apr, Chronic hepatitis C without hepatic coma B18.[address] [address] Apr, Bipolar disorder, current episode mixed, moderate F31.62 ; GAVIN (generalized anxiety disorder) F41.1 ; Other chronic pain G89.29 ; Chronic hepatitis C without hepatic coma B18.2 and Essential hypertension I10 [facility] [id number] [place] [address] Apr, [facility] [id number] [place] [address] Mar, [facility] [id number] [place] [address] Feb, [facility] [id number] [place] [address] Feb, [facility] [id number] [place] [address] Feb, Bipolar disorder, current episode mixed, moderate F31.62 [facility] [id number] [place] [address] Feb, [facility] [id number] [place] [address] Jan, Bipolar disorder, current episode mixed, moderate F31.62 ; Methamphetamine use disorder, severe, 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 ; Cocaine use disorder, moderate, dependence F14.20 ; Tobacco use Z72.0 and GAVIN (generalized anxiety disorder) F41.1 [facility] [address] [place] [address] Dec, [facility] [id number] [place] [address] Dec, [place] [address], [place] [address] Aug, [place] [id number] [place] [address] July, Bipolar disorder, current episode mixed, moderate F31.62 [place] [id number] [place] [address] Jun, Bipolar disorder, current episode mixed, moderate F31.62 [place] [address] [place] [address] Jun, [place] [id number] [place] [address] Jun, Bipolar disorder, current episode mixed, moderate F31.62 ; Methamphetamine use disorder, severe, 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 ; Cocaine use disorder, moderate, dependence F14.20 ; Tobacco use Z72.0 and GAVIN (generalized anxiety disorder) F41.1 [place] [address] [place] [address] Jun, Encounter for medication monitoring Z51.81 [place] [id number] [place] [address] May, Depression, unspecified depression type F32.9 [place] [address] [place] [address] May, [place] [id number] [place] [address] May, Bipolar disorder, current episode mixed, moderate F31.62 ; Methamphetamine use disorder, severe, 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 ; Cocaine use disorder, moderate, dependence F14.20 ; Tobacco use Z72.0 and GAVIN (generalized anxiety disorder) F41.1 [place] [address] [place] [address] Apr, Low back pain M54.5 [place] [address] [facility] [id number] [place] [address] Apr, Essential hypertension I10 ; Chronic hepatitis C without hepatic coma B18.2 ; Low back pain M54.5 ; Other chronic pain G89.29 and Depression, unspecified depression type F32.9 [facility] [address] [facility] [id number] [place] [address] Jan, Encounter for immunization Z23 IMMUNIZATIONS No Known Immunizations SOCIAL HISTORY Never Assessed REASON FOR VISIT Request Meds PLAN OF CARE VITAL SIGNS MEDICATIONS Medication Instructions Dosage Frequency Start Date End Date Duration Status Chantix 1 MG Orally 0.5mg daily x 3 days, then 0.5mg BID x 4 days, then 1mg BID 1 tablet May, 30 day(s) Active Nicoderm CQ 21 MG/24HR Transdermal Once a day 1 patch to skin 24h May, 30 day(s) Active RESULTS No Results [...]
--- OUTSIDE RECORDS SUMMARY | 2018-10-04 13:00 | XMS REPORT ---
Author Author ALEXANDRA PATEL Organization [facility] Address [address] [place] [address] Care Team Providers Care Clinical Consultant Name Role Phone ALEXANDRA PATEL Unavailable PROBLEMS Type Condition ICD9-CM Code HJZ15-CH Code Onset Dates Condition Status SNOMED Code Problem Unspecified viral hepatitis C without hepatic coma B19.20 Mar, Active 98320619 Problem Family planning V25.09 Jun, Active 09722433 Problem Varicose vein of leg 454.9 Aug, Active 41620460 Problem Depression with anxiety 300.4 Aug, Active 642599292 Problem Degenerative disc disease, lumbar 722.52 Nov, Active 84599256 Problem Bipolar disorder, current episode mixed, moderate F31.62 Active 032267250 Problem GAVIN (generalized anxiety disorder) F41.1 Active 89992710 Problem Back pain M54.9 Dec, Active 424298328 Problem Unspecified viral hepatitis C without hepatic coma 070.70 Mar, Active 38618672 Problem Anxiety F41.9 Oct, Active 65664510 Problem Degenerative disc disease, lumbar M51.36 26 Nov, 2014 Active 14863203 Problem Encounter for pain management counseling Z71.89 Jun, Active 148095439 Problem Depression with anxiety F41.8 Aug, Active 989685092 Problem Anxiety 300.00 Oct, Active 70934568 Problem Tobacco use 305.1 Nov, Active 474692776 Problem Essential hypertension, benign 401.1 Jan, Active 9609653 Problem Back pain 724.5 Dec, Active 862836306 Problem Pure hypercholesterolemia 272.0 Dec, Active 370255994 Problem Family planning Z30.09 04 Jun, 2010 Active 64454689 Problem Cigarette nicotine dependence, uncomplicated F17.210 Nov, Active 694117415 Problem Varicose vein of leg I83.90 Aug, Active 42689809 Problem Neural foraminal stenosis, multilevel 724.9 Nov, Active 38338311 Problem Alleged drug diversion V62.5 May, Active 18315443 Problem Encounter for pain management counseling V65.49 Jun, Active 690919111 Problem Neural foraminal stenosis, multilevel M43.8X9 Nov, Active Problem Alleged drug diversion Z65.3 May, Active 88016370 Problem Pure hypercholesterolemia E78.00 Dec, Active 736189403 Problem Essential hypertension, benign I10 Jan, Active 8679384 Problem Rheumatoid arthritis involving multiple sites with positive rheumatoid factor M05.79 July, Active 01233005 Problem Lumbar canal stenosis M48.061 Nov, Active 02914221 Problem Lumbar canal stenosis 724.02 Nov, Active 35583133 Problem Essential hypertension I10 Active 80532538 Problem Cigarette nicotine dependence, uncomplicated 305.1 Nov, Active 782994628 Problem Chronic hepatitis C without hepatic coma B18.2 Active 085920973 Problem Depression, unspecified depression type F32.9 Active 84633086 Problem Other chronic pain G89.29 Active 95917273 Problem Low back pain M54.5 Active 516064294 Problem Tobacco use Z72.0 Active 898532639 Problem Methamphetamine use disorder, severe, 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 Active 13713540 Problem Cocaine use disorder, moderate, dependence F14.20 Active 84356160 Problem Pure hypercholesterolemia, unspecified E78.00 Active 479402388 Problem Chronic pain of multiple joints M25.50 May, Active 74560243 Problem Verruca plantaris B07.0 Active 17798106 Problem Chronic pain of multiple joints 719.49 May, Active 37438634 Problem Rheumatoid arthritis involving multiple sites with positive rheumatoid factor 714.0 July, Active 20445489 Problem Chronic post-traumatic stress disorder (PTSD) F43.12 Active 76750444 Problem New onset type 2 diabetes mellitus E11.9 Active 34973671 Problem Uncontrolled type 2 diabetes mellitus with hyperglycemia E11.65 Active 149390952 Problem Cigarette smoker F17.210 Active 14475397 ALLERGIES No Information ENCOUNTERS Encounter Location Date Diagnosis [address] [address] July, [facility] [address] [id number] [address] Jun, [facility] [address] [address] Jun, [address] [address] Jun, New onset type 2 diabetes mellitus E11.[address] [address] Jun, New onset type 2 diabetes mellitus E11.9 ; Uncontrolled type 2 diabetes mellitus with hyperglycemia E11.65 ; Pure hypercholesterolemia, unspecified E78.00 ; Verruca plantaris B07.0 and Cigarette smoker F17.[address] [address] Jun, [address] [address] Jun, [address] [address] Jun, [address] [address] May, Uncontrolled type 2 diabetes mellitus with hyperglycemia E11.[address] [address] May, Encounter for immunization Z23 [facility] [id number] [address] May, [address] [address] May, Uncontrolled type 2 diabetes mellitus with hyperglycemia E11.65 and New onset type 2 diabetes mellitus E11.9 [facility] [address] [facility] [id number], [place] [address] May, New onset type 2 diabetes mellitus E11.9 [facility] [address] [facility] [id number], [place] [address] 14 May, 2018 [facility] [id number], [place] [address] 08 May, [address] [address] May, Chronic hepatitis C without hepatic coma B18.[address] [address] May, Chronic hepatitis C without hepatic coma B18.2 [facility] [address] [place] [address] May, [facility] [address], [place] [address] May, [facility] [id number] [place] [address] May, [facility] [address] [place] [address] May, Chronic hepatitis C without hepatic coma B18.2 and Encounter for immunization Z23 [facility] [address], [place] [address] Apr, Bipolar disorder, current episode mixed, moderate F31.62 ; Chronic post-traumatic stress disorder (PTSD) F43.12 ; GAVIN (generalized anxiety disorder) F41.1 ; Tobacco use Z72.0 ; Cocaine use disorder, moderate, dependence F14.20 and Methamphetamine use disorder, severe, 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 [address] Apr, [facility] [address] [address] Apr, New onset type 2 diabetes mellitus E11.9 [facility] [address] [address] Apr, New onset type 2 diabetes mellitus E11.[address] [address] Apr, Elevated glucose R73.[address] [address] Apr, Essential hypertension I10 and Chronic hepatitis C without hepatic coma B18.2 [facility] [address] [address] Apr, [facility] [address] [address] Apr, [facility] [id number] [place] [address] Apr, Chronic hepatitis C without hepatic coma B18.[address] [address] Apr, Bipolar disorder, current episode mixed, moderate F31.62 ; GAVIN (generalized anxiety disorder) F41.1 ; Other chronic pain G89.29 ; Chronic hepatitis C without hepatic coma B18.2 and Essential hypertension I10 [facility] [id number] [place] [address] Apr, [facility] [id number] [place] [address] Mar, [facility] [id number] [place] [address] Feb, [facility] [id number] [place] [address] Feb, [facility] [id number] [place] [address] Feb, Bipolar disorder, current episode mixed, moderate F31.62 [facility] [id number] [place] [address] Feb, [facility] [id number] [place] [address] Jan, Bipolar disorder, current episode mixed, moderate F31.62 ; Methamphetamine use disorder, severe, 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 ; Cocaine use disorder, moderate, dependence F14.20 ; Tobacco use Z72.0 and GAVIN (generalized anxiety disorder) F41.1 [facility] [address] [place] [address] Dec, [facility] [id number] [place] [address] Dec, [address] [address] Aug, [place] [id number] [place] [address] July, Bipolar disorder, current episode mixed, moderate F31.62 [place] [id number] [place] [address] Jun, Bipolar disorder, current episode mixed, moderate F31.62 [address] [address] [place] [address] Jun, [place] [id number] [place] [address] Jun, Bipolar disorder, current episode mixed, moderate F31.62 ; Methamphetamine use disorder, severe, 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 ; Cocaine use disorder, moderate, dependence F14.20 ; Tobacco use Z72.0 and GAVIN (generalized anxiety disorder) F41.1 [address] [address] [place] [address] Jun, Encounter for medication monitoring Z51.81 [place] [id number] [place] [address] May, Depression, unspecified depression type F32.9 [place] [address] [place] [address] May, [place] [id number] [place] [address] May, Bipolar disorder, current episode mixed, moderate F31.62 ; Methamphetamine use disorder, severe, 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 ; Cocaine use disorder, moderate, dependence F14.20 ; Tobacco use Z72.0 and GAVIN (generalized anxiety disorder) F41.1 [address] [address] [place] [address] Apr, Low back pain M54.5 [place] [address] [address] [facility] [id number] [place] [address] Apr, Essential hypertension I10 ; Chronic hepatitis C without hepatic coma B18.2 ; Low back pain M54.5 ; Other chronic pain G89.29 and Depression, unspecified depression type F32.9 [facility] [address] [facility] [id number] [place] [address] Jan, Encounter for immunization Z23 IMMUNIZATIONS No Known Immunizations SOCIAL HISTORY Never Assessed REASON FOR VISIT Hep C jorge sent PLAN OF CARE VITAL SIGNS MEDICATIONS Unknown [...]
--- OUTSIDE RECORDS SUMMARY | 2018-10-04 13:01 | XMS REPORT ---
Author Author TOYIN SWEET [facility] Address [address] [place] [address] Care Team Providers Care Small Craft Operator Name Role Phone TOYIN SWEET Unavailable PROBLEMS Type Condition ICD9-CM Code EQP85-SO Code Onset Dates Condition Status SNOMED Code Problem Neural foraminal stenosis, multilevel 724.9 Nov, Active 64642409 Problem Encounter for pain management counseling V65.49 Jun, Active 976080734 Problem Neural foraminal stenosis, multilevel M43.8X9 Nov, Active Problem Chronic pain of multiple joints M25.50 May, Active 28116710 Problem Chronic pain of multiple joints 719.49 May, Active 46076917 Problem Lumbar canal stenosis 724.02 Nov, Active 41913986 Problem Unspecified viral hepatitis C without hepatic coma B19.20 Mar, Active 40319442 Problem Rheumatoid arthritis involving multiple sites with positive rheumatoid factor 714.0 July, Active 62211263 Problem Alleged drug diversion Z65.3 May, Active 70402008 Problem Chronic hepatitis C without hepatic coma B18.2 Active 513031322 Problem Anxiety F41.9 Oct, Active 79880817 Problem Other chronic pain G89.29 Active 30718399 Problem Degenerative disc disease, lumbar M51.36 Nov, Active 07081288 Problem Alleged drug diversion V62.5 May, Active 94729828 Problem Depression with anxiety F41.8 Aug, Active 424550421 Problem Essential hypertension, benign I10 Jan, Active 3067146 Problem Rheumatoid arthritis involving multiple sites with positive rheumatoid factor M05.79 July, Active 29613950 Problem Family planning Z30.09 Jun, Active 99810574 Problem Back pain 724.5 Dec, Active 681629486 Problem Pure hypercholesterolemia E78.00 Dec, Active 731158493 Problem Anxiety 300.00 Oct, Active 87011492 Problem Cigarette nicotine dependence, uncomplicated F17.210 Nov, Active 640254039 Problem Pure hypercholesterolemia 272.0 Dec, Active 748930850 Problem Varicose vein of leg I83.90 Aug, Active 12687650 Problem Essential hypertension, benign 401.1 Jan, Active 5613009 Problem Low back pain M54.5 Active 689472067 Problem Back pain M54.9 Dec, Active 690138707 Problem Depression, unspecified depression type F32.9 Active 31819677 Problem Unspecified viral hepatitis C without hepatic coma 070.70 Mar, Active 43052545 Problem Essential hypertension I10 Active 92138764 Problem Cocaine use disorder, moderate, dependence F14.20 Active 62900623 Problem Methamphetamine use disorder, severe, 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 Active 76028275 Problem New onset type 2 diabetes mellitus E11.9 Active 81542807 Problem Cigarette nicotine dependence, uncomplicated 305.1 Nov, Active 667797105 Problem Family planning V25.09 Jun, Active 93499088 Problem Uncontrolled type 2 diabetes mellitus with hyperglycemia E11.65 Active 828178780 Problem Lumbar canal stenosis M48.061 Nov, Active 52296925 Problem Varicose vein of leg 454.9 Aug, Active 83096371 Problem Depression with anxiety 300.4 Aug, Active 635906571 Problem Encounter for pain management counseling Z71.89 Jun, Active 513610291 Problem Degenerative disc disease, lumbar 722.52 Nov, Active 49607528 Problem GAVIN (generalized anxiety disorder) F41.1 Active 21510604 Problem Bipolar disorder, current episode mixed, moderate F31.62 Active 741576346 Problem Tobacco use 305.1 Nov, Active 549820956 Problem Tobacco use Z72.0 Active 814056956 Problem Chronic post-traumatic stress disorder (PTSD) F43.12 Active 49739972 ALLERGIES Substance Reaction Event Type Date Status Tetracycline HCl hives Drug Allergy Apr, Active Erythromycin hives Drug Allergy Apr, Active ENCOUNTERS Encounter Location Date Diagnosis [address] [address] Jun, [address] [address] Jun, [facility] [place] [address] [address] Jun, [facility] [place] [address] [address] Jun, [facility] [place] [address] [address] May, Uncontrolled type 2 diabetes mellitus with hyperglycemia E11.65 [facility] [place] [address] [address] May, Encounter for immunization Z23 [facility] [address] [facility] [id number], [place] [address] May, [facility] [place] [address] [address] May, Uncontrolled type 2 diabetes mellitus with hyperglycemia E11.65 and New onset type 2 diabetes mellitus E11.9 [facility] [address] [facility] [id number], [place] [address] May, New onset type 2 diabetes mellitus E11.9 [facility] [address] [facility] [id number], [place] [address] May, [facility] [address] [facility] [id number], [place] [address] May, [address] [address] May, Chronic hepatitis C without hepatic coma B18.[address] [address] May, Chronic hepatitis C without hepatic coma B18.2 [facility] [address] [place] [address] May, [facility] [address] [facility] [id number], [place] [address] May, [facility] [address] [facility] [id number], [place] [address] May, [facility] [address] [place] [address] May, Chronic hepatitis C without hepatic coma B18.2 and Encounter for immunization Z23 [facility] [address], [place] [address] Apr, Bipolar disorder, current episode mixed, moderate F31.62 ; Chronic post-traumatic stress disorder (PTSD) F43.12 ; GAVIN (generalized anxiety disorder) F41.1 ; Tobacco use Z72.0 ; Cocaine use disorder, moderate, dependence F14.20 and Methamphetamine use disorder, severe, 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 [address] Apr, [facility] [id number] [place] [address] Apr, New onset type 2 diabetes mellitus E11.9 [place] [id number] [place] [address] Apr, New onset type 2 diabetes mellitus E11.[address] [address] Apr, Elevated glucose R73.[address] [address] Apr, Essential hypertension I10 and Chronic hepatitis C without hepatic coma B18.2 [facility] [address] [place] [address] Apr, [facility] [address] [place] [address] Apr, [facility] [id number] [place] [address] Apr, Chronic hepatitis C without hepatic coma B18.[address] [address] Apr, Bipolar disorder, current episode mixed, moderate F31.62 ; GAVIN (generalized anxiety disorder) F41.1 ; Other chronic pain G89.29 ; Chronic hepatitis C without hepatic coma B18.2 and Essential hypertension I10 [facility] [address] [place] [address] Apr, [facility] [address], [place] [address] Mar, [facility] [id number] [place] [address] Feb, [facility] [address] [place] [address] Feb, [facility] [id number] [place] [address] Feb, Bipolar disorder, current episode mixed, moderate F31.62 [facility] [id number] [place] [address] Feb, [facility] [id number] [place] [address] Jan, Bipolar disorder, current episode mixed, moderate F31.62 ; Methamphetamine use disorder, severe, 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 ; Cocaine use disorder, moderate, dependence F14.20 ; Tobacco use Z72.0 and GAVIN (generalized anxiety disorder) F41.1 [facility] [id number] [place] [address] Dec, [facility] [id number] [place] [address] Dec, [facility] [address] [place] [address] Aug, [facility] [id number] [place] [address] July, Bipolar disorder, current episode mixed, moderate F31.62 [facility] [address] [place] [address] Jun, Bipolar disorder, current episode mixed, moderate F31.62 [facility] [address], [place] [address] Jun, [facility] [id number] [place] [address] Jun, Bipolar disorder, current episode mixed, moderate F31.62 ; Methamphetamine use disorder, severe, 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 ; Cocaine use disorder, moderate, dependence F14.20 ; Tobacco use Z72.0 and GAVIN (generalized anxiety disorder) F41.1 [place] [address] [address] Jun, Encounter for medication monitoring Z51.81 [place] [address] [address] May, Depression, unspecified depression type F32.9 [place] [address] [address] May, [place] [address] [address] May, Bipolar disorder, current episode mixed, moderate F31.62 ; Methamphetamine use disorder, severe, 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 ; Cocaine use disorder, moderate, dependence F14.20 ; Tobacco use Z72.0 and GAVIN (generalized anxiety disorder) F41.1 [place] [address] [address] Apr, Low back pain M54.5 [place] [address] [address] Apr, Essential hypertension I10 ; Chronic hepatitis C without hepatic coma B18.2 ; Low back pain M54.5 ; Other chronic pain G89.29 and Depression, unspecified depression type F32.9 [place] [id number] [place] [address] Jan, Encounter for immunization Z23 IMMUNIZATIONS No Known Immunizations SOCIAL HISTORY Never Assessed REASON FOR VISIT f/amelia Kevin RN, AIMS and labs PLAN OF CARE Activity Details Follow Up 3 Weeks Reason: VITAL SIGNS Height 64 in 2018-05-12 Weight 203 lbs 2018-05-12 Heart Rate 88 bpm 2018-05-12 Respiratory Rate 18 2018-05-12 BMI 34.84 kg/m2 2018-05-12 Blood pressure systolic 148 mmHg 2018-05-12 Blood pressure diastolic 74 mmHg 2018-05-12 MEDICATIONS Medication Instructions Dosage Frequency Start Date End Date Duration Status Lancets Apr, Active Metformin HCl 500 MG Orally 2 times a day 1 tablet with a meal 12h Apr, 30 day(s) Active Methocarbamol 750 MG 1 TABLET 4 TIMES A DAY NEEDED ORALLY 90 Active Carvedilol 25 MG Orally 2 times a day 12h Active OneTouch Verio w/Device as directed Apr, Active Lisinopril-Hydrochlorothiazide 20-12.5 MG Orally Once a day 1 tablet 24h Active Gabapentin 300 MG Orally Three times a day 1 capsule 8h Active Seroquel 100 MG Orally BId 1 tablet 12h 30 days Active OneTouch Verio - In Vitro 4 times daily as directed Apr, Active Seroquel 300 MG Orally at night 1 tablet every night for 3 nights then take 1.5 tablets nightly 30 days Active RESULTS No Results PROCEDURES [...]
--- OUTSIDE RECORDS SUMMARY | 2018-10-04 13:03 | XMS REPORT | Continuity of Care Document ---
Author Organization Unknown Address Unknown Allergies There is no data. Medications There is no data. Problems There is no data. Procedures There is no data. Results Test Result Range PT/INR - 05/10/18 09:13 INR 1.0 NRG PT 9.9 sec 9.0-11.5 HEP C, FIBROSURE (INSURED ONLY)-APPROVAL REQUIRED - 05/10/18 09:13 FIBROSIS SCORE 0.51 NRG FIBROSIS STAGE F2 NRG FIBROSIS INTERPRETATION SEE NOTE NRG NECROINFLAMMAT ACT SCORE 0.50 NRG NECROINFLAMMAT ACT GRADE A1-A2 NRG NECROINFLAMMAT INTERP SEE NOTE NRG ALPHA 2 MACROGLOBULIN 429 mg/dL 106-279 HAPTOGLOBIN 269 mg/dL 43-212 APOLIPOPROTEIN A1 161 mg/dL 101-198 TOTAL BILIRUBIN 0.5 mg/dL 0.2-1.2 GGT 149 U/L 3-70 ALT 70 U/L 6-29 REFERENCE ID [id number] NRG FOOTNOTE SEE NOTE NRG MICROALBUMIN/CREATININE RATIO, URINE - 06/23/18 10:45 CREATININE, RANDOM URINE 91 mg/dL 20-275 MICROALBUMIN 0.4 mg/dL See Note: MICROALBUMIN/CREATININE RATIO, RANDOM URINE 4 mcg/mg creat <30 CMP - 09/05/18 14:26 GLUCOSE 126 mg/dL 65-99 UREA NITROGEN (BUN) 12 mg/dL 7-25 CREATININE 0.83 mg/dL 0.50-1.05 eGFR NON-AFR. LAO 82 mL/min/1.73m2 > OR=60 eGFR 95 mL/min/1.73m2 > OR=60 BUN/CREATININE RATIO NOT APPLICABLE (calc) 6-22 SODIUM 140 mmol/L 135-146 POTASSIUM 5.1 mmol/L 3.5-5.3 CHLORIDE 101 mmol/L 98-110 CARBON DIOXIDE 28 mmol/L 20-32 CALCIUM 10.3 mg/dL 8.6-10.4 PROTEIN, TOTAL 7.3 g/dL 6.1-8.1 ALBUMIN 4.1 g/dL 3.6-5.1 GLOBULIN 3.2 g/dL (calc) 1.9-3.7 ALBUMIN/GLOBULIN RATIO 1.3 (calc) 1.0-2.5 BILIRUBIN, TOTAL 0.8 mg/dL 0.2-1.2 ALKALINE PHOSPHATASE 129 U/L 33-130 AST 16 U/L 10-35 ALT 14 U/L 6-29 CBC - 09/05/18 14:26 WHITE BLOOD CELL COUNT 8.7 Thousand/uL 3.8-10.8 RED BLOOD CELL COUNT 4.27 Million/uL 3.80-5.10 HEMOGLOBIN 13.3 g/dL 11.7-15.5 HEMATOCRIT 38.3 % 35.0-45.0 MCV 89.7 fL 80.0-100.0 MCH 31.1 pg 27.0-33.0 MCHC 34.7 g/dL 32.0-36.0 RDW 14.6 % 11.0-15.0 PLATELET COUNT 250 Thousand/uL 140-400 MPV 9.9 fL 7.5-12.5 ABSOLUTE NEUTROPHILS 6229 cells/uL 6245-5390 ABSOLUTE LYMPHOCYTES 1731 cells/uL 850-3900 ABSOLUTE MONOCYTES 374 cells/uL 200-950 ABSOLUTE EOSINOPHILS 305 cells/uL 15-500 ABSOLUTE BASOPHILS 61 cells/uL 0-200 NEUTROPHILS 71.6 % NRG LYMPHOCYTES 19.9 % NRG MONOCYTES 4.3 % NRG EOSINOPHILS 3.5 % NRG BASOPHILS 0.7 % NRG HEP C PCR QUANT (Graph)-APPROVAL REQUIRED - 09/05/18 14:26 HCV RNA, QUANTITATIVE REAL TIME PCR <15 NOT DETECTED IU/mL NOT DETECTED HCV RNA, QUANTITATIVE REAL TIME PCR <1.18 NOT DETECTED Log IU/mL NOT DETECTED Encounters ACCT No. Visit Date/Time Discharge Status Pt. Type Provider Facility Loc./Unit Complaint [id number] 09/05/2018 13:20:00 09/05/2018 23:59:59 [facility] Outpatient TARIQ FOSTER [facility] [id number] 09/05/2018 13:20:00 Document Registration [id number] 06/23/2018 09:30:00 Document Registration [id number] 05/10/2018 09:20:00 Document Registration
--- NOTE | 2018-10-04 13:12 | ED Back Pain ---
General Chief Complaint: Back Problems Stated Complaint: FALL; BACK/HIP PAIN; IRVING LEG SWELLING Source of Information: Patient, Old Records, RN Notes Reviewed Exam Limitations: No Limitations History of Present Illness Date Seen by Provider: Oct 04, 2018 Time Seen by Provider: 13:12 Initial Comments Patient presents c/ c/o worsening LBP since falling p/ experiencing a reported syncopal episode last week. Concerned because she had back surgery 02/2017 @[facility]. States she thinks she is feeling her hardware moving/clicking in her low back when she walks, or moves. Been taking Ibuprofen and a muscle relaxant s/ benefit in her discomfort that she rates a 10/10. Also reports BLE swelling. States she hasn't had a problem c/ it since prior to her surgery. No known fever. Denies any GI symptoms. Location: Lumbar Spine, Other Timing/Duration: 1 Week Severity: Severe (10/10) Pain/Injury Location: Back (lower) Radiation: Buttocks Method of Injury: Fall (p/ a syncopal episode) Modifying Factors: Worse With Movement; Improves With Rest Associated Symptoms: denies symptoms (p/ as noted. ), lower back pain Allergies and Home Medications Allergies Coded Allergies: Sulfa (Sulfonamide Antibiotics) (Verified Allergy, Unknown, 10/04/18) erythromycin base (Verified Allergy, Unknown, 10/04/18) tetracycline (Verified Allergy, Unknown, 10/04/18) Home Medications Cefuroxime Axetil 250 Mg Tablet, 250 MG PO BID Prescribed by: JAMILA WALKER on 10/04/18 1437 Tramadol HCl 50 Mg Tablet, 50-100 MG PO Q6H PRN for BREAK THRU PAIN Prescribed by: JAMILA WALKER on 10/04/18 1437 Patient Home Medication List Home Medication List Reviewed: Yes Review of Systems Constitutional: see HPI Cardiovascular: see HPI, edema (BLE), syncope (last week) : No Musculoskeletal: see HPI, back pain (lower) All Other Systems Reviewed Negative Unless Noted: Yes (Negative excepted noted.) Past Nfmuqxl-Hexqzx-Uxlkza Hx Patient Social History Type Used: Cigarettes 2nd Hand Smoke Exposure: No Recent Hopitalizations: No Seasonal Allergies Seasonal Allergies: No Past Medical History Surgeries: Yes Orthopedic Respiratory: Yes COPD Cardiac: Yes Hypertension Neurological: No Genitourinary: No Gastrointestinal: No Musculoskeletal: Yes Chronic Back Pain Endocrine: Yes Diabetes, Non-Insulin dep HEENT: No Cancer: No Anxiety, Depression Integumentary: No Physical Exam Vital Signs Vital Signs - First Documented 10/04/18 13:10 Temp 96.9 Pulse 112 Resp 20 B/P (MAP) 148/95 (112) Pulse Ox 95 O2 Delivery Room Air Capillary Refill : Height, Weight, BMI Height: 5'4.00" Weight: 185lbs. oz. 83.061070bo; BMI Method:Actual General Appearance: WD/WN, Mild Distress, Obese Cardiovascular: Tachycardia Respiratory: No Respiratory Distress Back: Decreased Range of Motion (lumbar spine), Other (paraspinal tenderness B/L lumbar spine) Neurologic/Psychiatric: Alert, Oriented x3, No Motor/Sensory Deficits, Normal Mood/Affect Skin: Warm/Dry Progress/Results/Core Measures Results/Orders Lab Results Laboratory Tests Test 10/04/18 12:56 10/04/18 13:20 10/04/18 13:25 Range/Units Lab Scanned Report Referred Lab Report [id number] White Blood Count 6.8 4.3-11.0 10^3/uL Red Blood Count 3.71 L 4.35-5.85 10^6/uL Hemoglobin 11.7 11.5-16.0 G/DL Hematocrit 35 35-52 % Mean Corpuscular Volume 93 80-99 FL Mean Corpuscular Hemoglobin 32 25-34 PG Mean Corpuscular Hemoglobin Concent 34 32-36 G/DL Red Cell Distribution Width 14.3 10.0-14.5 % Platelet Count 212 130-400 10^3/uL Mean Platelet Volume 9.6 7.4-10.4 FL Neutrophils (%) (Auto) 63 42-75 % Lymphocytes (%) (Auto) 27 12-44 % Monocytes (%) (Auto) 4 0-12 % Eosinophils (%) (Auto) 4 0-10 % Basophils (%) (Auto) 1 0-10 % Neutrophils # (Auto) 4.3 1.8-7.8 X 10^3 Lymphocytes # (Auto) 1.8 1.0-4.0 X 10^3 Monocytes # (Auto) 0.3 0.0-1.0 X 10^3 Eosinophils # (Auto) 0.3 0.0-0.3 10^3/uL Basophils # (Auto) 0.1 0.0-0.1 10^3/uL Sodium Level 141 135-145 MMOL/L Potassium Level 4.6 3.6-5.0 MMOL/L Chloride Level 102 98-107 MMOL/L Carbon Dioxide Level 24 21-32 MMOL/L Anion Gap 15 H 5-14 MMOL/L Blood Urea Nitrogen 17 7-18 MG/DL Creatinine 0.76 0.60-1.30 MG/DL Estimat Glomerular Filtration Rate > 60 BUN/Creatinine Ratio 22 Glucose Level 189 H 70-105 MG/DL Calcium Level 9.2 8.5-10.1 MG/DL Corrected Calcium 9.4 8.5-10.1 MG/DL Total Bilirubin < 0.2 0.1-1.0 MG/DL Aspartate Amino Transf (AST/SGOT) 23 5-34 U/L Alanine Aminotransferase (ALT/SGPT) 18 0-55 U/L Alkaline Phosphatase 95 40-136 U/L Pro-B-Type Natriuretic Peptide 342.3 H <75.0 PG/ML Total Protein 6.6 6.4-8.2 GM/DL Albumin 3.7 3.2-4.5 GM/DL Urine Color YELLOW Urine Clarity SLT CLOUDY Urine pH 5.5 5-9 Urine Specific Ages [place] 1.025 H 1.016-1.022 Urine Protein NEGATIVE NEGATIVE Urine Glucose (UA) 3+ H NEGATIVE Urine Ketones NEGATIVE NEGATIVE Urine Nitrite POSITIVE H NEGATIVE Urine Bilirubin NEGATIVE NEGATIVE Urine Urobilinogen 0.2 NORMAL MG/DL Urine Leukocyte Esterase NEGATIVE NEGATIVE Urine RBC (Auto) NEGATIVE NEGATIVE Urine RBC NONE /HPF Urine WBC 5-10 H /HPF Urine Squamous Epithelial Cells 5-10 /HPF Urine Crystals NONE /LPF Urine Bacteria LARGE H /HPF Urine Casts NONE /LPF Urine Mucus NONE /LPF Urine Culture Indicated YES Micro Results Microbiology 10/04/18 Urine Culture - Final, Complete Escherichia coli My Orders Orders - JAMILA WALKER DO Ct Lumbar Spine Wo (10/04/18 13:08) Ct Pelvis Wo (10/04/18 13:08) Cbc With Automated Diff (10/04/18 13:10) Comprehensive Metabolic Panel (10/04/18 13:10) Ua Culture If Indicated (10/04/18 13:10) Probnp Fs (10/04/18 13:10) Ed Iv/Invasive Line Start (10/04/18 13:24) Ketorolac Injection (Toradol Injection) (10/04/18 13:30) Urine Culture (10/04/18 13:25) Cefdinir Capsule (Omnicef Capsule) (10/04/18 14:30) Oxycodone Immediate Rel Tablet (Oxyir Ta (10/04/18 14:30) Dexamethasone Injection (Decadron Inject (10/04/18 14:30) Methylprednisolone Acetate Inj (Depo-Med (10/04/18 14:30) Iv Push Baseball Sewer Hand Ed (10/04/18 ) Im/Sub-Q Injection Non-Ab Ed (10/04/18 ) Medications Given in ED Vital Signs/I&O 10/04/18 10/04/18 13:10 15:40 Temp 96.9 97.6 Pulse 112 107 Resp 20 18 B/P (MAP) 148/95 (112) 135/95 (108) Pulse Ox 95 96 O2 Delivery Room Air Room Air Progress Progress Note : Progress Note Her pain/symptoms have improved @ time of discharge. Diagnostic Imaging Diagonstic Imaging: CT Plain Films/CT/US/NM/MRI: pelvis (nothing acute), other (lumbar spine- nothing acute) Departure Impression Primary Impression: Acute exacerbation of chronic low back pain Additional Impressions: UTI (urinary tract infection) Constipation Disposition: 01 HOME, SELF-CARE Condition: Stable Departure-Patient Inst. Decision time for Depature: 14:31 Referrals: [facility] (PCP) Primary Care Physician TARIQ FOSTER APRN (Family) Primary Care Physician Patient Instructions: Constipation, Adult (DC), Low Back Pain (DC), Urinary Tract Infection, Adult (DC) Add. Discharge Instructions: RECOMMEND THE LAXATIVE OF YOUR CHOICE FOR YOUR CONSTIPATION. RECOMMEND 400-600 mg OF IBUPROFEN EVERY 6 HOURS NEEDED FOR PAIN. MAY ALSO TAKE 1000 mg OF TYLENOL EVERY 6 HOURS WELL IF NEEDED FOR PAIN. DO NOT EXCEED 4000 mg OF TYLENOL IN A 24 HOUR PERIOD. All discharge instructions reviewed with patient and/or family. Voiced understanding. Scripts Tramadol HCl (Tramadol HCl) 50 Mg Tablet 50-100 MG PO Q6H PRN for BREAK THRU PAIN, #20 TAB 0 Refills Prov: JAMILA WALKER DO 10/04/18 Cefuroxime Axetil (Cefuroxime) 250 Mg Tablet 250 MG PO BID for UTI for 10 Days, #20 TAB 0 Refills Prov: JAMILA WALKER DO 10/04/18 JAMILA WALKER DO Oct 04, 2018 13:12
[2018-10-04 13:29] LABS: WHITE BLOOD COUNT 6.8 10^3/uL (4.3-11.0)
[2018-10-04 13:30] LABS: BASOPHILS % (AUTO) 1 % (0-10); EOSINOPHILS % (AUTO) 4 % (0-10); HEMATOCRIT 35 % (35-52); HEMOGLOBIN 11.7 G/DL (11.5-16.0); LYMPHOCYTES % (AUTO) 27 % (12-44); MEAN CORPUSCULAR HEMOGLOBIN 32 PG (25-34); MEAN CORPUSCULAR HGB CONC 34 G/DL (32-36); MEAN CORPUSCULAR VOLUME 93 FL (80-99); MEAN PLATELET VOLUME 9.6 FL (7.4-10.4); MONOCYTES % (AUTO) 4 % (0-12); NEUTROPHILS % (AUTO) 63 % (42-75); PLATELET COUNT 212 10^3/uL (130-400); RED CELL DISTRIBUTION WIDTH 14.3 % (10.0-14.5)
[2018-10-04] MEDS ORDERED: KETOROLAC 30 MG/ML VIAL IVP ONE (13:30)
[2018-10-04] MEDS ORDERED: KETOROLAC 30 MG/ML VIAL IM ONE (13:30)
[2018-10-04 13:31] LABS: BASOPHILS # (AUTO) 0.1 10^3/uL (0.0-0.1); EOSINOPHILS # (AUTO) 0.3 10^3/uL (0.0-0.3); LYMPHOCYTES # (AUTO) 1.8 X 10^3 (1.0-4.0); MONOCYTES # (AUTO) 0.3 X 10^3 (0.0-1.0); NEUTROPHILS # (AUTO) 4.3 X 10^3 (1.8-7.8)
[2018-10-04 14:00] LABS: CLARITY,URINE SLT CLOUDY; COLOR,URINE YELLOW; GLUCOSE, URINE (UA) 3+ (NEGATIVE); KETONES,URINE NEGATIVE (NEGATIVE); PH,URINE 5.5 (5-9); PROTEIN,URINE NEGATIVE (NEGATIVE)
[2018-10-04 14:01] LABS: BACTERIA,URINE LARGE /HPF; BILIRUBIN,URINE NEGATIVE (NEGATIVE); LEUKOCYTE ESTERASE ,URINE NEGATIVE (NEGATIVE); NITRITE,URINE POSITIVE (NEGATIVE); UROBILINOGEN,URINE 0.2 MG/DL (NORMAL)
--- NOTE | 2018-10-04 14:13 | Diagnostic Imaging Report ---
PROCEDURE: CT lumbar spine without contrast. TECHNIQUE: Multiple contiguous axial images were obtained through the lumbar spine without the use of intravenous contrast. Sagittal and coronal reformations were then performed. Auto Exposure Controls were utilized during the CT exam to meet ALARA standards for radiation dose reduction. INDICATION: Back pain, fall Study correlated with plain films 06/18/2018. Postsurgical changes of a bipedicular screws and posterior fusion with screws at the L4-L5 and S1 level are redemonstrated. No identifiable hardware fracture. No suspicious lucencies or ostial lysis along the properly positioned course of the pedicular screws. No findings of hardware migration or displacement. Grade 1 anterolisthesis of L5 on S1 stable from prior. There is endplate bridging and fusion across the L4-L5 level but no appreciable fusion across the L5-S1 vertebral bodies. There is no paravertebral mass, hemorrhage or fluid collection. L4-L5 laminectomies have been performed. No high-grade lumbar canal stenosis is found. At L5-S1 there is a moderate left and mild right foraminal stenosis with chronic bilateral L5 spondylolysis defects stable. IMPRESSION: Intact hardware stable grade 1 anterolisthesis L5 on S1 with advanced local spondylosis and chronic L5 bilateral spondylolysis defects. Lower lumbar foraminal stenoses but no high-grade canal stenosis. No acute vertebral body or endplate irregularity. No acute fracture. Dictated by: Dictated on workstation # [id number]
--- NOTE | 2018-10-04 14:17 | Diagnostic Imaging Report ---
PROCEDURE: CT pelvis without contrast. TECHNIQUE: Multiple contiguous axial images were obtained through the pelvis without the use of intravenous contrast. Sagittal and coronal reformations were performed. Auto Exposure Controls were utilized during the CT exam to meet ALARA standards for radiation dose reduction. INDICATION: Fall with pain. Lumbar CT dictated separately. Again noted lower lumbar posterior fusion chronic L5 spondylolysis defects and chronic L5 on S1 grade 1 anterolisthesis. An IUD device is in the urinary bladder. We note a colonic constipation without bowel obstruction or focal impaction. There is no adnexal lesion. The urinary bladder unremarkable. The pubic rings and superior and inferior pubic jensen, the symphysis and SI joints nonacute. There is no fracture identified. The femoral head is directed into the acetabula. No acute acetabular abnormality. Femoral necks and trochanters and subtrochanteric shafts intact. No inguinal canal mass, hernia or fluid collection. IMPRESSION: Chronic findings in the lumbar spine. No pelvic fracture. IUD in good position. Colonic constipation noted. No free fluid or fluid collection. Dictated by: Dictated on workstation # [id number]
[2018-10-04 14:18] LABS: CARBON DIOXIDE 24 MMOL/L (21-32); CHLORIDE 102 MMOL/L (98-107); POTASSIUM 4.6 MMOL/L (3.6-5.0); SODIUM 141 MMOL/L (135-145)
[2018-10-04 14:19] LABS: ALKALINE PHOSPHATASE 95 U/L (40-136); BILIRUBIN,TOTAL < 0.2 MG/DL (0.1-1.0); BUN/CREATININE RATIO 22; CALCIUM 9.2 MG/DL (8.5-10.1); CREATININE SERUM 0.76 MG/DL (0.60-1.30); GFR ESTIMATED > 60; GLUCOSE 189 MG/DL (70-105); TOTAL PROTEIN 6.6 GM/DL (6.4-8.2)
[2018-10-04 14:20] LABS: ALBUMIN 3.7 GM/DL (3.2-4.5)
[2018-10-04 14:26] LABS: ALANINE AMINOTRANSFERASE 18 U/L (0-55)
[2018-10-04] MEDS ORDERED: DEXAMETHASONE 10 MG/ML (DECADRON) 1 ML VIAL IM ONE (14:30)
[2018-10-04] MEDS ORDERED: CEFDINIR 300 MG (OMNICEF) CAP PO ONE (14:30)
[2018-10-04] MEDS ORDERED: methylPREDNISolone 80 MG/ML (DEPO MEDROL) VIAL IM ONE (14:30)
[2018-10-04] MEDS ORDERED: TRAM50TA2 PO (14:37)
[2018-10-04] MEDS ORDERED: CEFU250T80 PO (14:37)
[2018-10-04 15:40] VITALS: BP 135/95
== END 2018-10-04 15:40 | disposition home or self-care (01) ==
LOC: EDUNIT# 12:54 → ER FS 12:56
DX: N39.0 Urinary tract infection, site not specified (principal); K59.00 Constipation, unspecified; M54.5 Low back pain; J44.9 Chronic obstructive pulmonary disease, unspecified; I10 Essential (primary) hypertension; E11.9 Type 2 diabetes mellitus without complications; F41.9 Anxiety disorder, unspecified; F32.9 Major depressive disorder, single episode, unspecified; Z88.2 Allergy status to sulfonamides; Z88.1 Allergy status to other antibiotic agents
CPT/HCPCS: 36415; 72131; 72192; 80053; 81000; 83880; 85025; 87077; 87088; 87186; 96372; 96374

== ENCOUNTER 2018-12-17 21:58 | Emergency (ER) | payer MEDICAID, OTHER ==
[~2018-12-17] VITALS: Ht 162.5 cm; Wt 77.2 kg
[~2018-12-17 21:58] MED LIST: CEFU250T80 PO; TRAM50TA2 PO
[2018-12-17] MEDS ORDERED: ORPHENADRINE 60 MG/2 ML (NORFLEX) AMP IM STA (22:27)
[2018-12-17] MEDS ORDERED: KETOROLAC 60 MG/2 ML VIAL IM STA (22:27)
[2018-12-17] MEDS ORDERED: BACL10TA PO (22:34)
[2018-12-17] MEDS ORDERED: IBUP-1780 PO (22:34)
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
[2018-12-17 22:50] VITALS: BP 138/84
== END 2018-12-17 22:50 | disposition home or self-care (01) ==
LOC: EDUNIT# 21:58 → ER FS 21:58
DX: S00.83XA Contusion of other part of head, initial encounter (principal); S29.019A Strain of muscle and tendon of unspecified wall of thorax, initial encounter; S20.229A Contusion of unspecified back wall of thorax, initial encounter; S10.0XXA Contusion of throat, initial encounter; T74.11XA Adult physical abuse, confirmed, initial encounter; I10 Essential (primary) hypertension; E11.9 Type 2 diabetes mellitus without complications; F41.9 Anxiety disorder, unspecified; F31.9 Bipolar disorder, unspecified; J44.9 Chronic obstructive pulmonary disease, unspecified; B19.20 Unspecified viral hepatitis C without hepatic coma; R40.2142 Coma scale, eyes open, spontaneous, at arrival to emergency department; R40.2252 Coma scale, best verbal response, oriented, at arrival to emergency department; R40.2362 Coma scale, best motor response, obeys commands, at arrival to emergency department; Z88.2 Allergy status to sulfonamides; Z88.1 Allergy status to other antibiotic agents; Y07.9 Unspecified perpetrator of maltreatment and neglect
CPT/HCPCS: 99284

== ENCOUNTER 2019-01-01 16:59 | Emergency (ER) | payer MEDICAID, OTHER ==
[~2019-01-01] VITALS: Ht 162 cm; Wt 89.0 kg
[~2019-01-01 16:59] MED LIST changes: +BACL10TA PO; +IBUP-1780 PO
[2019-01-01] MEDS ORDERED: KETOROLAC 60 MG/2 ML VIAL IM ONE (17:15)
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
[2019-01-01] MEDS ORDERED: CYCL10TA9 PO (18:14)
[2019-01-01] MEDS ORDERED: PRD20T PO (18:14)
[2019-01-01] MEDS ORDERED: RX-CYCLOBENZAPRINE 10 MG (FLEXERIL) TAB PPK#3 PO STA (18:15)
[2019-01-01] MEDS ORDERED: methylPREDNISolone 40 MG/ML (DEPO MEDROL) VIAL IM ONE (18:15)
[2019-01-01] MEDS ORDERED: BACL10TA PO (18:21)
[2019-01-01] MEDS ORDERED: DICL25CA4 PO (18:23)
[2019-01-01] MEDS ORDERED: ORPHENADRINE 60 MG/2 ML (NORFLEX) AMP IM ONE (18:30)
[2019-01-01 18:36] VITALS: BP 135/92
== END 2019-01-01 18:30 | disposition home or self-care (01) ==
LOC: EDUNIT# 16:59 → ER FS 17:00
DX: M25.552 Pain in left hip (principal); M54.5 Low back pain; M06.9 Rheumatoid arthritis, unspecified; E11.9 Type 2 diabetes mellitus without complications; I10 Essential (primary) hypertension; F31.9 Bipolar disorder, unspecified; J44.9 Chronic obstructive pulmonary disease, unspecified; F17.210 Nicotine dependence, cigarettes, uncomplicated; Z79.84 Long term (current) use of oral hypoglycemic drugs; Z88.2 Allergy status to sulfonamides; Z88.1 Allergy status to other antibiotic agents; Y04.2XXA Assault by strike against or bumped into by another person, initial encounter
CPT/HCPCS: 72082; 73502

== ENCOUNTER 2019-01-28 17:10 | Emergency (ER) | payer MEDICAID ==
[~2019-01-28] VITALS: Ht 162 cm; Wt 89.9 kg
[~2019-01-28 17:10] MED LIST changes: +CYCL10TA9 PO; +DICL25CA4 PO; +PRD20T PO
--- NOTE | 2019-01-28 17:27 | ED EENT ---
History of Present Illness General Chief Complaint: Dental Problems/Pain Stated Complaint: DENTAL PAIN History of Present Illness Date Seen by Provider: Jan 28, 2019 Time Seen by Provider: 17:10 Initial Comments The patient is a 53-year-old female with a history of hypertension, dyz-hhlkgwq-ytszutozj diabetes and chronic problems with necrotic and fractured dentition. She presents with concern for 4 days of midline maxillary dental discomfort in association with a number of broken and necrotic teeth. No associated fevers, nausea or vomiting, trismus, pain or swelling to the floor of the mouth or elevation of the tongue, trouble with secretions, change in voice, shortness of breath. Patient has been using glif-rmd-rvmlqvh pain medications and Orajel without relief of symptoms. She does plan to follow up with a dentist. Allergies and Home Medications Allergies Coded Allergies: Sulfa (Sulfonamide Antibiotics) (Verified Allergy, Unknown, 10/04/18) erythromycin base (Verified Allergy, Unknown, 10/04/18) tetracycline (Verified Allergy, Unknown, 10/04/18) Home Medications Baclofen 10 Mg Tablet, 10 MG PO BID PRN for muscle spasms/back pain Prescribed by: JESENIA DOBBS on 12/17/182233 Baclofen 10 Mg Tablet, 10 MG PO BID PRN for SPASMS Prescribed by: KENNA ZAPATA on 01/01/191820 Cefuroxime Axetil 250 Mg Tablet, 250 MG PO BID Prescribed by: JAMILA WALKRE on 10/04/18 143 Diclofenac Potassium 25 Mg Capsule, 25 MG PO BID PRN for BACK PAIN Prescribed by: KENNA ZAPATA on 01/01/191822 Ibuprofen 800 Mg Tablet, 800 MG PO Q8H PRN for PAIN Prescribed by: JESENIA DOBBS on 12/17/182233 Prednisone 20 Mg Tab, 20 MG PO BID Take 3 tabs(60mg)daily, decrease by 1/2 tab(10mg)daily. Prescribed by: KENNA ZAPATA on 01/01/191813 Tramadol HCl 50 Mg Tablet, 50-100 MG PO Q6H PRN for BREAK THRU PAIN Prescribed by: JAMILA WALKER on 10/04/18 1437 Patient Home Medication List Home Medication List Reviewed: Yes Review of Systems Review of Systems Constitutional: see HPI All Other Systems Reviewed Negative Unless Noted: Yes Past Savzilq-Fyhkzu-Chyuwg Hx Past Med/Social Hx: Reviewed Nursing Past Med/Soc Hx Patient Social History Type Used: Cigarettes 2nd Hand Smoke Exposure: No Recent Hopitalizations: No Seasonal Allergies Seasonal Allergies: No Past Medical History Surgeries: Yes (BACK, LAMINECTOMY) Orthopedic Respiratory: Yes COPD Cardiac: Yes Hypertension Neurological: No Genitourinary: No Gastrointestinal: No Musculoskeletal: Yes Rheumatoid Arthritis, Back Injury, Chronic Back Pain Endocrine: Yes Diabetes, Non-Insulin dep HEENT: No Cancer: No Psychosocial: Yes Bipolar Integumentary: No Blood Disorders: No Adverse Reaction/Blood Tranf: No Family Medical History Reviewed Nursing Family Hx Physical Exam Height, Weight, BMI Height: 5'4.00" Weight: 190lbs. oz. 86.598357fu; 33.00 BMI Method:Stated General Appearance: no apparent distress This is an older female appearing nontoxic and in no acute distress. Head is normocephalic and atraumatic. Neck is supple and nontender. Oropharynx is moist. The majority of teeth in the patient's mouth are fractured and necrotic, many broken off at the bases. No trismus. No uvular swelling, tonsillar erythema or exudates, uvular deviation, trouble with secretions. There is mild gingival erythema in association with 4 or 5 midline maxillary incisors without fluctuance or swelling suggestive of abscess. No facial swelling noted. Lungs are clear to auscultation in all stations. There is a normal S1 and S2 without rubs or gallops and capillary refill is appropriate, less than 2 seconds globally. Abdomen is soft, nontender and nondistended. Skin is warm and dry without cyanosis, clubbing or edema. Psychiatrically, the patient demonstrates appropriate mood and affect and is alert. Progress/Results/Core Measures Results/Orders My Orders Orders - TERRA LEVY MD Penicillin Vk Tablet (Veetid Tablet) (01/28/19 17:30) Progress Progress Note : Time: 17:26 Progress Note Clinical examination reassuring. 53-year-old female with extremely poor and necrotic dentition who presents with mild gingival infection above her maxillary incisors. No abscess requiring drainage. Will prescribe penicillin as well as a few pills of stronger pain medication. I discussed with the patient that since she is having difficulty affording dental treatment here in [place] we will provide referral information for the [facility] dental clinic in [place] which is on a sliding scale and is inexpensive. She is to call on Wednesday to find out about follow-up. She understands that if she feels worse is that of better or develops other symptoms of concern that she should return right away for reevaluation. All questions are answered. Departure Impression Primary Impression: Dental decay Additional Impression: Infection of buccal space Disposition: HOME, SELF-CARE Condition: Improved Departure-Patient Inst. Referrals: [facility] (PCP) Primary Care Physician TARIQ FOSTER APRN (Family) Primary Care Physician Patient Instructions: Dental Pain (DC), Tooth Decay, Adult Add. Discharge Instructions: Please call the [facility] student dental clinic on Wednesday at to find out about close follow-up for your dental issues. Emergency walk-in dental clinic hours at the [facility] dental school are 7:30 a.m. 8:30 a.m. and 11:30 a.m. 12:30 p.m. on according to their website. In the meantime, take ibuprofen 800 mg every 8 hours on a scheduled and you may take an oral morphine pill every 4-6 hours as needed for pain that is not controlled with ibuprofen. Return to the emergency department right away with reports of symptoms or other new concerns. Scripts [morphine 15mg IR tab] No Conflict Check 15 MG PO Q6H for Breakthrough Pain, #11 TAB 0 Refills Prov: TERRA LEVY MD 01/28/19 Ibuprofen (Ibuprofen) 800 Mg Tablet 800 MG PO Q8H PRN for PAIN, #30 TAB 0 Refills Prov: TERRA LEVY MD 01/28/19 Penicillin V Potassium (Penicillin V Potassium) 250 Mg Tablet 250 MG PO Q6H for 10 Days, #40 TAB Prov: TERRA LEVY MD 01/28/19 TERRA LEVY MD Jan 28, 2019 17:27 POS
[2019-01-28] MEDS ORDERED: PENICILLIN V K 250 MG TAB PO ONE (17:30)
[2019-01-28] MEDS ORDERED: PENI250T2 PO (17:33)
[2019-01-28] MEDS ORDERED: IBUP-1780 PO (17:33)
[2019-01-28] MEDS ORDERED: MORPHINE 15 MG PO (17:33)
[2019-01-28 17:43] VITALS: BP 117/85
== END 2019-01-28 17:43 | disposition home or self-care (01) ==
LOC: EDUNIT# 17:10 → ER FS 17:11
DX: K02.9 Dental caries, unspecified (principal); K12.2 Cellulitis and abscess of mouth; I10 Essential (primary) hypertension; E11.9 Type 2 diabetes mellitus without complications; J44.9 Chronic obstructive pulmonary disease, unspecified; F31.9 Bipolar disorder, unspecified; M06.9 Rheumatoid arthritis, unspecified; Z88.2 Allergy status to sulfonamides; Z88.1 Allergy status to other antibiotic agents
CPT/HCPCS: 99282

== ENCOUNTER 2019-02-08 16:29 | Emergency (ER) | payer MEDICAID ==
[~2019-02-08] VITALS: Ht 163 cm; Wt 88.9 kg
[~2019-02-08 16:29] MED LIST changes: +MORPHINE 15 MG PO; +PENI250T2 PO
--- NOTE | 2019-02-08 16:47 | ED EENT ---
History of Present Illness General Chief Complaint: Dental Problems/Pain Stated Complaint: DENTAL PAIN/SWELLING Source: patient Exam Limitations: no limitations History of Present Illness Date Seen by Provider: Feb 08, 2019 Time Seen by Provider: 16:45 Initial Comments Patient complains of dental pain for the past several weeks to months. She was in the ER. 2 days ago for the same. She was prescribed penicillin. She did not see a dentist Allergies and Home Medications Allergies Coded Allergies: Sulfa (Sulfonamide Antibiotics) (Verified Allergy, Unknown, 10/04/18) erythromycin base (Verified Allergy, Unknown, 10/04/18) tetracycline (Verified Allergy, Unknown, 10/04/18) Home Medications Baclofen 10 Mg Tablet, 10 MG PO BID PRN for muscle spasms/back pain Prescribed by: JESENIA DOBBS on 12/17/182233 Baclofen 10 Mg Tablet, 10 MG PO BID PRN for SPASMS Prescribed by: KENNA ZAPATA on 01/01/19 182 Cefuroxime Axetil 250 Mg Tablet, 250 MG PO BID Prescribed by: JAMILA WALKER on 10/04/18 1437 Chlorhexidine Gluconate 473 Ml Mouthwash, 473 ML MM BID Prescribed by: JERRI DAWKINS on 02/08/19 165 Clindamycin HCl 150 Mg Capsule, 150 MG PO QID Prescribed by: JERRI DAWKINS on 02/08/19 165 Diclofenac Potassium 25 Mg Capsule, 25 MG PO BID PRN for BACK PAIN Prescribed by: KENNA ZAPATA on 01/01/19 182 Diclofenac Sodium 50 Mg Tablet.dr, 50 MG PO BID Prescribed by: JERRI DAWKINS on 02/08/19 165 Ibuprofen 800 Mg Tablet, 800 MG PO Q8H PRN for PAIN Prescribed by: JESENIA DOBBS on 12/17/182233 Ibuprofen 800 Mg Tablet, 800 MG PO Q8H PRN for PAIN Prescribed by: TERRA LEVY on 01/28/19 173 Penicillin V Potassium 250 Mg Tablet, 250 MG PO Q6H Prescribed by: TERRA LEVY on 01/28/19 173 Prednisone 20 Mg Tab, 20 MG PO BID Take 3 tabs(60mg)daily, decrease by 1/2 tab(10mg)daily. Prescribed by: KENNA ZAPATA on 01/01/19 181 Tramadol HCl 50 Mg Tablet, 50-100 MG PO Q6H PRN for BREAK THRU PAIN Prescribed by: JAMILA WALKER on 10/04/18 1437 [morphine 15mg IR tab] , 15 MG PO Q6H Prescribed by: TERRA LEVY on 01/28/19 1733 Patient Home Medication List Home Medication List Reviewed: Yes Review of Systems Review of Systems Constitutional: no symptoms reported Mouth: see HPI Respiratory: no symptoms reported Cardiovascular: no symptoms reported Past Nrtzgul-Nzrddj-Mysffb Hx Patient Social History Type Used: Cigarettes 2nd Hand Smoke Exposure: No Recent Foreign Travel: No Contact w/Someone Who Travel: No Recent Hopitalizations: No Seasonal Allergies Seasonal Allergies: No Past Medical History Surgeries: Yes (BACK, LAMINECTOMY) Orthopedic Respiratory: Yes COPD Cardiac: Yes Hypertension Neurological: No Genitourinary: No Gastrointestinal: No Musculoskeletal: Yes Rheumatoid Arthritis, Back Injury, Chronic Back Pain Endocrine: Yes Diabetes, Non-Insulin dep HEENT: No Cancer: No Psychosocial: Yes Bipolar Integumentary: No Blood Disorders: No Adverse Reaction/Blood Tranf: No Physical Exam Vital Signs Vital Signs - First Documented 02/08/19 16:40 Temp 36.5 Pulse 112 Resp 18 B/P (MAP) 166/96 (119) Pulse Ox 98 O2 Delivery Room Air Height, Weight, BMI Height: 5'4.00" Weight: 190lbs. oz. 86.027309xp; 34.00 BMI Method:Stated General Appearance: WD/WN, no apparent distress Mouth/Throat: other (poor dentition throughout. She complains of upper incisor pain. These are eroded to the gum line and carious. There is mild gingival swelling and erythema. No abscess. No facial swelling.) Cardiovascular: regular rate, rhythm Respiratory: lungs clear Neurologic/Psychiatric: alert, normal mood/affect Skin: normal color, warm/dry Progress/Results/Core Measures Results/Orders Vital Signs/I&O 02/08/19 02/08/19 16:40 16:58 Temp 36.5 36.5 Pulse 112 112 Resp 18 18 B/P (MAP) 166/96 (119) 166/96 Pulse Ox 98 98 O2 Delivery Room Air Room Air Departure Impression Primary Impression: Pain, dental Disposition: 01 HOME, SELF-CARE Condition: Stable Departure-Patient Inst. Decision time for Depature: 16:48 Referrals: [facility] ([facility]P) Primary Care Physician TARIQ FOSTER APRN (Family) Primary Care Physician Patient Instructions: Dental Pain (DC) Add. Discharge Instructions: See dentist as soon as possible. All discharge instructions reviewed with patient and/or family. Voiced understanding. Scripts Diclofenac Sodium (Diclofenac Sodium) 50 Mg Tablet.dr 50 MG PO BID, #10 TAB Prov: JERRI DAWKINS MD 02/08/19 Chlorhexidine Gluconate (Peridex) 473 Ml Mouthwash 473 ML MM BID, #473 ML Prov: JERRI DAWKINS MD 02/08/19 Clindamycin HCl (Clindamycin HCl) 150 Mg Capsule 150 MG PO QID, #28 CAP Prov: JERRI DAWKINS MD 02/08/19 JERRI DAWKINS MD Feb 08, 2019 16:47 POS
[2019-02-08] MEDS ORDERED: DICL50TA6 PO (16:50)
[2019-02-08] MEDS ORDERED: CHLO473M4 MM (16:50)
[2019-02-08] MEDS ORDERED: CLIN150C17 PO (16:50)
[2019-02-08 16:58] VITALS: BP 166/96
== END 2019-02-08 17:00 | disposition home or self-care (01) ==
LOC: EDUNIT# 16:29 → ER FS 16:31
DX: K08.89 Other specified disorders of teeth and supporting structures (principal); I10 Essential (primary) hypertension; J44.9 Chronic obstructive pulmonary disease, unspecified; E11.9 Type 2 diabetes mellitus without complications; F31.9 Bipolar disorder, unspecified; M06.9 Rheumatoid arthritis, unspecified; Z88.2 Allergy status to sulfonamides; Z88.1 Allergy status to other antibiotic agents
CPT/HCPCS: 99282

== ENCOUNTER 2019-03-08 16:16 | Emergency (ER) | payer MEDICAID ==
[~2019-03-08] VITALS: Ht 162.5 cm; Wt 85.0 kg
[~2019-03-08 16:16] MED LIST changes: +CHLO473M4 MM; +CLIN150C17 PO; +DICL50TA6 PO
[2019-03-08] MEDS ORDERED: QUET400T54 (16:49)
[2019-03-08] MEDS ORDERED: ATOR20TA66 (16:49)
[2019-03-08] MEDS ORDERED: METF-399 (16:49)
[2019-03-08] MEDS ORDERED: DAPA5TAB (16:49)
[2019-03-08] MEDS ORDERED: GABA-490 (16:49)
[2019-03-08] MEDS ORDERED: EXEN2PEN (16:49)
[2019-03-08] MEDS ORDERED: PRAZ1CAP2 (16:49)
[2019-03-08] MEDS ORDERED: GABA-488 (16:50)
[2019-03-08] MEDS ORDERED: LISI1TAB8 (16:50)
[2019-03-08 16:54] LABS: BASOPHILS # (AUTO) 0.1 10^3/uL (0.0-0.1); BASOPHILS % (AUTO) 1 % (0-10); EOSINOPHILS # (AUTO) 0.3 10^3/uL (0.0-0.3); EOSINOPHILS % (AUTO) 4 % (0-10); HEMATOCRIT 40 % (35-52); HEMOGLOBIN 13.5 G/DL (11.5-16.0); LYMPHOCYTES # (AUTO) 1.9 X 10^3 (1.0-4.0); LYMPHOCYTES % (AUTO) 26 % (12-44); MEAN CORPUSCULAR HEMOGLOBIN 30 PG (25-34); MEAN CORPUSCULAR HGB CONC 34 G/DL (32-36); MEAN CORPUSCULAR VOLUME 89 FL (80-99); MEAN PLATELET VOLUME 9.5 FL (7.4-10.4); MONOCYTES # (AUTO) 0.4 X 10^3 (0.0-1.0); MONOCYTES % (AUTO) 5 % (0-12); NEUTROPHILS # (AUTO) 4.6 X 10^3 (1.8-7.8); NEUTROPHILS % (AUTO) 64 % (42-75); PLATELET COUNT 250 10^3/uL (130-400); RED CELL DISTRIBUTION WIDTH 14.6 % (10.0-14.5); WHITE BLOOD COUNT 7.1 10^3/uL (4.3-11.0)
[2019-03-08 17:04] LABS: ALKALINE PHOSPHATASE 108 U/L (40-136); BILIRUBIN,TOTAL 0.4 MG/DL (0.1-1.0); BUN/CREATININE RATIO 27; CALCIUM 9.7 MG/DL (8.5-10.1); CARBON DIOXIDE 22 MMOL/L (21-32); CHLORIDE 100 MMOL/L (98-107); GFR ESTIMATED > 60; GLUCOSE 118 MG/DL (70-105); POTASSIUM 4.2 MMOL/L (3.6-5.0); SODIUM 139 MMOL/L (135-145)
[2019-03-08 17:05] LABS: ACETAMINOPHEN < 10 UG/ML (10-30); ALANINE AMINOTRANSFERASE 23 U/L (0-55); ALBUMIN 4.5 GM/DL (3.2-4.5); SALICYLATE < 0.3 MG/DL (5.0-20.0); TOTAL PROTEIN 8.4 GM/DL (6.4-8.2)
[2019-03-08 17:06] LABS: BACTERIA,URINE LARGE /HPF; BILIRUBIN,URINE NEGATIVE (NEGATIVE); CLARITY,URINE CLOUDY; COLOR,URINE YELLOW; GLUCOSE, URINE (UA) 1+ (NEGATIVE); KETONES,URINE 2+ (NEGATIVE); LEUKOCYTE ESTERASE ,URINE TRACE (NEGATIVE); NITRITE,URINE POSITIVE (NEGATIVE); PROTEIN,URINE NEGATIVE (NEGATIVE); WBC,URINE 50-100 /HPF
[2019-03-08 17:09] LABS: TRICYCLIC ANTIDEPRESSANTS SCRE POSITIVE (NEGATIVE)
[2019-03-08 17:10] LABS: AMPHETAMINE SCREEN, URINE NEGATIVE (NEGATIVE); BARBITURATE SCREEN URINE NEGATIVE (NEGATIVE); BENZODIAZEPINES SCREEN URINE NEGATIVE (NEGATIVE); CANNABINOID SCREEN, URINE NEGATIVE (NEGATIVE); COCAINE SCREEN URINE NEGATIVE (NEGATIVE); METHADONE STAT NEGATIVE (NEGATIVE); METHAMPHETAMINE SCREEN URINE S NEGATIVE (NEGATIVE); OPIATE SCREEN URINE POSITIVE (NEGATIVE); OXYCODONE STAT NEGATIVE (NEGATIVE); PROPOXYPHENE STAT NEGATIVE (NEGATIVE)
--- NOTE | 2019-03-08 17:23 | Diagnostic Imaging Report ---
PROCEDURE: CT head without contrast. TECHNIQUE: Multiple contiguous axial images were obtained through the brain without the use of intravenous contrast. Auto Exposure Controls were utilized during the CT exam to meet ALARA standards for radiation dose reduction. INDICATION: Altered mental status. FINDINGS: There is no hemorrhage, hydrocephalus, edema, mass or mass effect. There is no hydrocephalus. The basilar cisterns patent. No sulcal effacement. No calvarial deformity. No acute sinus disease. The partially visualized orbits are unremarkable. IMPRESSION: No hemorrhage, edema or acute appearing abnormality. Dictated by: Dictated on workstation # [id number]
--- NOTE | 2019-03-08 17:24 | Diagnostic Imaging Report ---
INDICATION: Altered mental status. EXAMINATION: Single view of the chest was obtained. FINDINGS: Lungs are clear. The heart and vessels are normal. There is no effusion or pneumothorax. IMPRESSION: No acute appearing abnormality. Dictated by: Dictated on workstation # [id number]
[2019-03-08] MEDS ORDERED: cefTRIAXone FOR IV USE 2,000 MG in WATER (STERILE) FOR INJECTION 20 ML IV ONE (17:30)
[2019-03-08] MEDS ORDERED: NS IV 1000 ML 1,000 ML IV SCH (17:30)
--- NOTE | 2019-03-08 17:57 | ED General ---
General Chief Complaint: Altered Mental Status Stated Complaint: ALTERED MENTAL STATUS Nursing Triage Note: Patient presents to ED per [facility] EMS reporting call to 911 for patient acting inappropriate. Talking to self and confused to situation. Pt reports date 03/08/1985. Pt laughing inappropriate. Nursing Sepsis Screen: No Definite Risk Source of Information: Patient, EMS, Family History of Present Illness Date Seen by Provider: Mar 08, 2019 Time Seen by Provider: 16:30 Initial Comments Patient was brought into the emergency room with the complaint of being change in mental status and was acting weird and talking to herself. She does have a history of anxiety and bipolar. Family called EMS because she's been talking to herself and was acting weird and they were concerned that she might have done some drugs and so called EMS and was brought to the emergency room. Patient is alert and awake. She does not remember the year but does remember the date and month. She denies having any pain anywhere. She did admit that she did used meth yesterday and did drink alcohol. She denies having any suicidal or homicidal thoughts. Timing/Duration: 12 Hours Severity: Mild Associated Systoms: Denies Symptoms Allergies and Home Medications Allergies Coded Allergies: Sulfa (Sulfonamide Antibiotics) (Verified Allergy, Unknown, 10/04/18) erythromycin base (Verified Allergy, Unknown, 10/04/18) tetracycline (Verified Allergy, Unknown, 10/04/18) Home Medications Diclofenac Sodium 50 Mg Tablet.dr, 50 MG PO BID Prescribed by: JERRI DAWKINS on 02/08/19 1650 Ibuprofen 800 Mg Tablet, 800 MG PO Q8H PRN for PAIN Prescribed by: TERRA LEVY on 01/28/19 1733 [morphine 15mg IR tab] , 15 MG PO Q6H Prescribed by: TERRA LEVY on 01/28/19 1733 Review of Systems Review of Systems Constitutional: see HPI EENTM: no symptoms reported Respiratory: see HPI Cardiovascular: see HPI Gastrointestinal: no symptoms reported Genitourinary: see HPI Musculoskeletal: see HPI Skin: see HPI Psychiatric/Neurological: Anxiety Hematologic/Lymphatic: See HPI Past Dqqqoes-[place]os[place]-Wmjbyt Hx Patient Social History Alcohol Use: Occasionally Uses Recreational Drug Use: Yes Drug of Choice: Past hx Meth, reports "maybe" to THC Smoking Status: Current Everyday Smoker Type Used: Cigarettes 2nd Hand Smoke Exposure: No Recent Foreign Travel: No Contact w/Someone Who Travel: No Recent Infectious Disease Expo: No Recent Hopitalizations: No Physical Abuse: No Sexual Abuse: No Mistreated: No Fear: No Seasonal Allergies Seasonal Allergies: No Past Medical History Surgeries: Yes (BACK, LAMINECTOMY) Orthopedic Respiratory: Yes COPD Cardiac: Yes Hypertension Neurological: Yes Neuropathy : No Genitourinary: No Gastrointestinal: Yes (Hep C) Hepatitis Musculoskeletal: Yes Rheumatoid Arthritis, Back Injury, Chronic Back Pain Endocrine: Yes Diabetes, Non-Insulin dep HEENT: No Cancer: No Psychosocial: Yes (Major depressive disorder) Anxiety, Bipolar Integumentary: No Blood Disorders: No Adverse Reaction/Blood Tranf: No Physical Exam Vital Signs Vital Signs - First Documented 03/08/19 16:30 Temp 36.4 Pulse 100 Resp 16 B/P (MAP) 169/94 (119) Pulse Ox 97 O2 Delivery Room Air Capillary Refill : Less Than 3 Seconds Height, Weight, BMI Height: 5'4.00" Weight: 190lbs. oz. 86.092384dn; 32.00 BMI Method:Stated General Appearance: Mild Distress Progress/Results/Core Measures Suspected Sepsis Recent Fever Within 48 Hours: No Infection Criteria Present: None New/Unexplained Altered Menta: No Sepsis Screen: No Definite Risk SIRS Temperature: Pulse: 100 Respiratory Rate: 16 Laboratory Tests 03/08/19 16:39: White Blood Count 7.1 Blood Pressure 169 /94 Mean: 119 Laboratory Tests 03/08/19 16:39: Creatinine 0.90, Platelet Count 250, Total Bilirubin 0.4 Results/Orders Lab Results Laboratory Tests Test 03/08/19 16:39 03/08/19 16:55 Range/Units White Blood Count 7.1 4.3-11.0 10^3/uL Red Blood Count 4.52 4.35-5.85 10^6/uL Hemoglobin 13.5 11.5-16.0 G/DL Hematocrit 40 35-52 % Mean Corpuscular Volume 89 80-99 FL Mean Corpuscular Hemoglobin 30 25-34 PG Mean Corpuscular Hemoglobin Concent 34 32-36 G/DL Red Cell Distribution Width 14.6 H 10.0-14.5 % Platelet Count 250 130-400 10^3/uL Mean Platelet Volume 9.5 7.4-10.4 FL Neutrophils (%) (Auto) 64 42-75 % Lymphocytes (%) (Auto) 26 12-44 % Monocytes (%) (Auto) 5 0-12 % Eosinophils (%) (Auto) 4 0-10 % Basophils (%) (Auto) 1 0-10 % Neutrophils # (Auto) 4.6 1.8-7.8 X 10^3 Lymphocytes # (Auto) 1.9 1.0-4.0 X 10^3 Monocytes # (Auto) 0.4 0.0-1.0 X 10^3 Eosinophils # (Auto) 0.3 0.0-0.3 10^3/uL Basophils # (Auto) 0.1 0.0-0.1 10^3/uL Sodium Level 139 135-145 MMOL/L Potassium Level 4.2 3.6-5.0 MMOL/L Chloride Level 100 98-107 MMOL/L Carbon Dioxide Level 22 21-32 MMOL/L Anion Gap 17 H 5-14 MMOL/L Blood Urea Nitrogen 24 H 7-18 MG/DL Creatinine 0.90 0.60-1.30 MG/DL Estimat Glomerular Filtration Rate > 60 BUN/Creatinine Ratio 27 Glucose Level 118 H 70-105 MG/DL Calcium Level 9.7 8.5-10.1 MG/DL Corrected Calcium 9.3 8.5-10.1 MG/DL Total Bilirubin 0.4 0.1-1.0 MG/DL Aspartate Amino Transf (AST/SGOT) 40 H 5-34 U/L Alanine Aminotransferase (ALT/SGPT) 23 0-55 U/L Alkaline Phosphatase 108 40-136 U/L Total Protein 8.4 H 6.4-8.2 GM/DL Albumin 4.5 3.2-4.5 GM/DL Salicylates Level < 0.3 L 5.0-20.0 MG/DL Acetaminophen Level < 10 L 10-30 UG/ML Serum Alcohol < 10 <10 MG/DL Urine Color YELLOW Urine Clarity CLOUDY H Urine pH 6.0 5-9 Urine Specific [place] 1.025 H 1.016-1.022 Urine Protein NEGATIVE NEGATIVE Urine Glucose (UA) 1+ H NEGATIVE Urine Ketones 2+ H NEGATIVE Urine Nitrite POSITIVE H NEGATIVE Urine Bilirubin NEGATIVE NEGATIVE Urine Urobilinogen 0.2 < = 1.0 MG/DL Urine Leukocyte Esterase TRACE H NEGATIVE Urine RBC (Auto) NEGATIVE NEGATIVE Urine RBC 2-5 H /HPF Urine WBC 50-100 H /HPF Urine Squamous Epithelial Cells 5-10 /HPF Urine Crystals NONE /LPF Urine Bacteria LARGE H /HPF Urine Casts NONE /LPF Urine Mucus NEGATIVE /LPF Urine Culture Indicated YES Urine Opiates Screen POSITIVE H NEGATIVE Urine Oxycodone Screen NEGATIVE NEGATIVE Urine Methadone Screen NEGATIVE NEGATIVE Urine Propoxyphene Screen NEGATIVE NEGATIVE Urine Barbiturates Screen NEGATIVE NEGATIVE Ur Tricyclic Antidepressants Screen POSITIVE H NEGATIVE Urine Phencyclidine Screen NEGATIVE NEGATIVE Urine Amphetamines Screen NEGATIVE NEGATIVE Urine Methamphetamines Screen NEGATIVE NEGATIVE Urine Benzodiazepines Screen NEGATIVE NEGATIVE Urine Cocaine Screen NEGATIVE NEGATIVE Urine Cannabinoids Screen NEGATIVE NEGATIVE My Orders Orders - CHLOE SHAFER MD Ua Culture If Indicated (03/08/19 16:37) Cbc With Automated Diff (03/08/19 16:37) Comprehensive Metabolic Panel (03/08/19 16:37) Alcohol (03/08/19 16:37) Drug Screen Stat (Urine) (03/08/19 16:37) Acetaminophen (03/08/19 16:37) Salicylate (03/08/19 16:37) Ekg Tracing (03/08/19 16:37) Ed Iv/Invasive Line Start (03/08/19 16:37) Ed Iv/Invasive Line Start (03/08/19 16:37) Ct Head Wo (03/08/19 16:38) Chest 1 View Ap/Pa Only (03/08/19 16:38) Urine Culture (03/08/19 16:55) Ns Iv 1000 Ml (Sodium Chloride 0.9%) (03/08/19 17:30) Ceftriaxone For Iv Use (Rocephin For I (03/08/19 17:30) Lorazepam Injection (Ativan Injection) (03/08/19 18:00) Medications Given in ED Current Medications Medications Dose Ordered Sig/Jorge Route Start Time Stop Time Status Last Admin Dose Admin Ceftriaxone Sodium 2000 mg/ Sterile Water 20 ml @ 240 mls/hr ONCE ONCE IV 03/08/19 17:30 03/08/19 17:34 DC 03/08/19 17:47 240 MLS/HR Lorazepam 1 mg ONCE ONCE IVP 03/08/19 18:00 03/08/19 18:01 DC 03/08/19 18:18 1 MG Vital Signs/I&O 03/08/19 16:30 Temp 36.4 Pulse 100 Resp 16 B/P (MAP) 169/94 (119) Pulse Ox 97 O2 Delivery Room Air Capillary Refill : Less Than 3 Seconds Blood Pressure Mean: 119 Progress Note : Time: 19:27 Progress Note Patient and family was informed of abnormal lab results, CT results and the chest x-ray. She does have mild UTI. She was given Rocephin and IV fluids. Advised not to drugs and advised to follow-up with the primary care doctor. ECG Initial ECG Rhythm: Normal Sinus Departure Impression Primary Impression: UTI (urinary tract infection) Qualified Codes: N30.00 - Acute cystitis without hematuria Additional Impression: Drug abuse Disposition: HOME, SELF-CARE Condition: Stable Departure-Patient Inst. Decision time for Depature: 19:30 Referrals: [facility] (PCP) Primary Care Physician TARIQ FOSTER APRN (Family) Primary Care Physician Patient Instructions: ALCOHOL AND SUBSTANCE ABUSE, Urinary Tract Infection, Adult (DC) Add. Discharge Instructions: Follow-up with your primary care doctor in 2-3 days. Take antiemetics as prescribed. Next and do not do drugs. Return to the emergency room is symptoms worsens or has any concern. All discharge instructions reviewed with patient and/or family. Voiced understanding. Scripts Cephalexin (Keflex) 500 Mg Capsule 500 MG PO TID for 7 Days, CAP Prov: CHLOE SHAFER MD 03/08/19 CHLOE SHAFER MD Mar 08, 2019 17:57
[2019-03-08] MEDS ORDERED: LORazepam INJ 2 MG/ML (ATIVAN) VIAL IVP ONE (18:00)
--- NOTE | 2019-03-08 18:00 | NUR ---
to room and gave impression/update to patient and family. Pt does not understand what is going on as acting inappropriate. Dgt verbalizes concern for street drugs and thinks she has a track mishel. Dgt states she heard the Meth in [place] laced with Fentanyl. Dgt feels the prior Nov Rx short supply narcotic should be gone but tests positive opiates.
[2019-03-08] MEDS ORDERED: CEPH-507 PO (19:39)
[2019-03-08 19:50] VITALS: BP 156/103
== END 2019-03-08 19:52 | disposition home or self-care (01) ==
LOC: EDUNIT# 16:16 → ER FS 16:25
DX: N39.0 Urinary tract infection, site not specified (principal); F15.10 Other stimulant abuse, uncomplicated; F41.9 Anxiety disorder, unspecified; F31.9 Bipolar disorder, unspecified; J44.9 Chronic obstructive pulmonary disease, unspecified; I10 Essential (primary) hypertension; E11.40 Type 2 diabetes mellitus with diabetic neuropathy, unspecified; B19.20 Unspecified viral hepatitis C without hepatic coma; M06.9 Rheumatoid arthritis, unspecified; F17.210 Nicotine dependence, cigarettes, uncomplicated; Z88.2 Allergy status to sulfonamides; Z88.1 Allergy status to other antibiotic agents
CPT/HCPCS: 36415; 70450; 71045; 80053; 80306; 80320; 80329; 81000; 85025; 87077; 87088; 87186; 93005; 96361; 96374; 96375

== ENCOUNTER 2019-03-10 10:17 | Emergency (ER) | payer MEDICAID ==
[~2019-03-10 10:17] MED LIST changes: +ATOR20TA66; +CEPH-507 PO; +DAPA5TAB; +EXEN2PEN; +GABA-488; +GABA-490; +LISI1TAB8; +METF-399; +PRAZ1CAP2; +QUET400T54
[2019-03-10] MEDS ORDERED: ZIPRASIDONE 20 MG INJ (GEODON) VIAL IM ONE (10:30)
[2019-03-10] MEDS ORDERED: LACTATED RINGERS 1,000 ML IV ONE (10:31)
[2019-03-10] MEDS ORDERED: WATER (STERILE) FOR INJECTION 10 ML ONE (10:32)
--- NOTE | 2019-03-10 10:53 | ED General ---
General Chief Complaint: Altered Mental Status Stated Complaint: AMS Nursing Triage Note: Brought in by EMS for altered mental status. Daughters reported to EMS that they think she took flacca laced with fentanyl and has not slept for more than two days. EMS reports that she could tell them her name and that she lives in [place]. Upon arrival to ED, patient states that her name is Carmen and she does not know where she is at. Nursing Sepsis Screen: No Definite Risk Source of Information: Patient, EMS Exam Limitations: Intoxication, Physical Impairments History of Present Illness Date Seen by Provider: Mar 10, 2019 Time Seen by Provider: 10:25 Initial Comments Here by EMS with report that patient may have taken something per the patient's daughters. They are concerned that she may have taken Fl[place] and it may have been laced with something. They did mention fentanyl to EMS. Patient is very active and agitated and not answering questions well. Eyes are open and breathing on her own. When I asked her how she was doing she stated "Boris Womack". She stated this multiple times. She is not answering questions directly. She does follow some simple commands. She is tachycardic and hyperactive. Unable to obtain any valid history from the patient due to underlying mental status changes. Apparently has history of substance abuse. Timing/Duration: 1 Hour, Constant Severity: Moderate, Severe Allergies and Home Medications Allergies Coded Allergies: Sulfa (Sulfonamide Antibiotics) (Verified Allergy, Unknown, 10/04/18) erythromycin base (Verified Allergy, Unknown, 10/04/18) tetracycline (Verified Allergy, Unknown, 10/04/18) Home Medications Cephalexin 500 Mg Capsule, 500 MG PO TID Prescribed by: CHLOE SHAFER on 03/08/191938 Diclofenac Sodium 50 Mg Tablet.dr, 50 MG PO BID Prescribed by: JERRI DAWKINS on 02/08/19 165 Ibuprofen 800 Mg Tablet, 800 MG PO Q8H PRN for PAIN Prescribed by: TERRA LEVY on 01/28/191732 [morphine 15mg IR tab] , 15 MG PO Q6H Prescribed by: TERRA LEVY on 01/28/191732 Patient Home Medication List Home Medication List Reviewed: Yes Review of Systems Review of Systems Constitutional: see HPI Unable to complete review of systems due to altered mental status and underlying condition Past Bovmtcb-Hnzxqa-Wtfjlk Hx Past Med/Social Hx: Reviewed Nursing Past Med/Soc Hx Patient Social History Drug of Choice: Past hx Meth, reports "maybe" to THC Type Used: Cigarettes 2nd Hand Smoke Exposure: No Recent Foreign Travel: No Contact w/Someone Who Travel: No Recent Infectious Disease Expo: No Recent Hopitalizations: No Seasonal Allergies Seasonal Allergies: No Past Medical History Surgeries: Yes (BACK, LAMINECTOMY) Orthopedic Respiratory: Yes COPD Cardiac: Yes Hypertension Neurological: Yes Neuropathy Genitourinary: No Gastrointestinal: Yes (Hep C) Hepatitis Musculoskeletal: Yes Rheumatoid Arthritis, Back Injury, Chronic Back Pain Endocrine: Yes Diabetes, Non-Insulin dep HEENT: No Cancer: No Psychosocial: Yes (Major depressive disorder) Anxiety, Bipolar Integumentary: No Blood Disorders: No Adverse Reaction/Blood Tranf: No Family Medical History Reviewed Nursing Family Hx History obtained from records due to altered mental status and underlying condition. Physical Exam Vital Signs Vital Signs - First Documented 03/10/19 10:29 Temp 36.6 Pulse 104 Resp 19 B/P (MAP) 160/103 (122) Pulse Ox 97 Capillary Refill : Less Than 3 Seconds Height, Weight, BMI Height: 5'4.00" Weight: 190lbs. oz. 86.499381au; 32.00 BMI Method:Stated General Appearance: Mild Distress, Obese HEENT: PERRL/EOMI, Other (obvious injuries to the head) Neck: Full Range of Motion, Normal Inspection, Non Tender, Supple Respiratory: Lungs Clear, Normal Breath Sounds Cardiovascular: No Murmur, Tachycardia Gastrointestinal: Non Tender, Soft Back: Normal Inspection, No CVA Tenderness, No Vertebral Tenderness Extremity: Normal Range of Motion, Non Tender Neurologic/Psychiatric: Alert, Other (does not answer questions appropriately. Does follow some simple commands. Unable to determine orientation status otherwise due to underlying medical condition and altered mental status.) Skin: Normal Color, Warm/Dry Progress/Results/Core Measures Suspected Sepsis Recent Fever Within 48 Hours: No Infection Criteria Present: None New/Unexplained Altered Menta: No Sepsis Screen: No Definite Risk SIRS Temperature: Pulse: 104 Respiratory Rate: 19 Laboratory Tests 03/10/19 12:29: White Blood Count 8.4 Blood Pressure 160 /103 Mean: 122 Laboratory Tests 03/10/19 12:29: Creatinine 0.69, Platelet Count 267, Total Bilirubin 0.3 Results/Orders Lab Results Laboratory Tests Test 03/10/19 11:40 03/10/19 12:29 Range/Units Urine Color YELLOW Urine Clarity CLEAR Urine pH 6.0 5-9 Urine Specific [place] >1.030 1.016-1.022 Urine Protein 1+ H NEGATIVE Urine Glucose (UA) NEGATIVE NEGATIVE Urine Ketones 3+ H NEGATIVE Urine Nitrite NEGATIVE NEGATIVE Urine Bilirubin 2+ H NEGATIVE Urine Urobilinogen 0.2 < = 1.0 MG/DL Urine Leukocyte Esterase NEGATIVE NEGATIVE Urine RBC (Auto) NEGATIVE NEGATIVE Urine RBC NONE /HPF Urine WBC NONE /HPF Urine Squamous Epithelial Cells 2-5 /HPF Urine Crystals NONE /LPF Urine Bacteria TRACE /HPF Urine Casts NONE /LPF Urine Mucus SMALL H /LPF Urine Culture Indicated NO Urine Opiates Screen NEGATIVE NEGATIVE Urine Oxycodone Screen NEGATIVE NEGATIVE Urine Methadone Screen NEGATIVE NEGATIVE Urine Propoxyphene Screen NEGATIVE NEGATIVE Urine Barbiturates Screen NEGATIVE NEGATIVE Ur Tricyclic Antidepressants Screen POSITIVE H NEGATIVE Urine Phencyclidine Screen NEGATIVE NEGATIVE Urine Amphetamines Screen NEGATIVE NEGATIVE Urine Methamphetamines Screen NEGATIVE NEGATIVE Urine Benzodiazepines Screen POSITIVE H NEGATIVE Urine Cocaine Screen NEGATIVE NEGATIVE Urine Cannabinoids Screen NEGATIVE NEGATIVE White Blood Count 8.4 4.3-11.0 10^3/uL Red Blood Count 4.52 4.35-5.85 10^6/uL Hemoglobin 13.5 11.5-16.0 G/DL Hematocrit 40 35-52 % Mean Corpuscular Volume 89 80-99 FL Mean Corpuscular Hemoglobin 30 25-34 PG Mean Corpuscular Hemoglobin Concent 34 32-36 G/DL Red Cell Distribution Width 14.4 10.0-14.5 % Platelet Count 267 130-400 10^3/uL Mean Platelet Volume 9.2 7.4-10.4 FL Neutrophils (%) (Auto) 77 H 42-75 % Lymphocytes (%) (Auto) 18 12-44 % Monocytes (%) (Auto) 5 0-12 % Eosinophils (%) (Auto) 0 0-10 % Basophils (%) (Auto) 0 0-10 % Neutrophils # (Auto) 6.4 1.8-7.8 X 10^3 Lymphocytes # (Auto) 1.5 1.0-4.0 X 10^3 Monocytes # (Auto) 0.4 0.0-1.0 X 10^3 Eosinophils # (Auto) 0.0 0.0-0.3 10^3/uL Basophils # (Auto) 0.0 0.0-0.1 10^3/uL Sodium Level 142 135-145 MMOL/L Potassium Level 3.6 3.6-5.0 MMOL/L Chloride Level 102 98-107 MMOL/L Carbon Dioxide Level 22 21-32 MMOL/L Anion Gap 18 H 5-14 MMOL/L Blood Urea Nitrogen 15 7-18 MG/DL Creatinine 0.69 0.60-1.30 MG/DL Estimat Glomerular Filtration Rate > 60 BUN/Creatinine Ratio 22 Glucose Level 122 H 70-105 MG/DL Calcium Level 9.9 8.5-10.1 MG/DL Corrected Calcium 9.6 8.5-10.1 MG/DL Total Bilirubin 0.3 0.1-1.0 MG/DL Aspartate Amino Transf (AST/SGOT) 21 5-34 U/L Alanine Aminotransferase (ALT/SGPT) 17 0-55 U/L Alkaline Phosphatase 99 40-136 U/L Total Protein 8.0 6.4-8.2 GM/DL Albumin 4.4 3.2-4.5 GM/DL Salicylates Level < 5.0 L 5.0-20.0 MG/DL Acetaminophen Level < 10 L 10-30 UG/ML Serum Alcohol < 10 <10 MG/DL My Orders Orders - PRECIOUS GARCIA MD Ziprasidone Injection (Geodon Injection) (03/10/19 10:30) Ua Culture If Indicated (03/10/19 10:31) Cbc With Automated Diff (03/10/19 10:31) Comprehensive Metabolic Panel (03/10/19 10:31) Alcohol (03/10/19 10:31) Drug Screen Stat (Urine) (03/10/19 10:31) Acetaminophen (03/10/19 10:31) Salicylate (03/10/19 10:31) Ekg Tracing (03/10/19 10:31) Ed Iv/Invasive Line Start (03/10/19 10:31) Thyroid Analyzer (03/10/19 10:31) Monitor-Rhythm Ecg Trace Only (03/10/19 10:31) Bh Status Checks/Observation Q15M (03/10/19 10:31) Ed Iv/Invasive Line Start (03/10/19 10:31) Lactated Ringers (Lr 1000 Ml Iv Solution (03/10/19 10:31) Water (Sterile) For Injection (Sterile W (03/10/19 10:32) Lorazepam Injection (Ativan Injection) (03/10/19 11:30) Medications Given in ED Current Medications Medications Dose Ordered Sig/Jorge Route Start Time Stop Time Status Last Admin Dose Admin Lactated Ringer's 1,000 ml @ 0 mls/hr Q0M ONCE IV 03/10/19 10:31 03/10/19 10:33 DC 03/10/19 12:34 999 MLS/HR Lorazepam 2 mg ONCE ONCE IM 03/10/19 11:30 03/10/19 11:31 DC 03/10/19 11:23 2 MG Sterile Water 10 ml @ ud STK-MED ONCE .ROUTE 03/10/19 10:32 03/10/19 10:37 DC 03/10/19 10:41 1 MLS/HR Ziprasidone 20 mg ONCE ONCE IM 03/10/19 10:30 03/10/19 10:32 DC 03/10/19 10:41 20 MG Vital Signs/I&O 03/10/19 10:29 Temp 36.6 Pulse 104 Resp 19 B/P (MAP) 160/103 (122) Pulse Ox 97 Capillary Refill : Less Than 3 Seconds Blood Pressure Mean: 122 Progress Note : Progress Note Seen and evaluated on arrival by EMS. Geodon 20 mg IM ordered. We will check labs, UA and EKG when able. Also LR 1 L bolus ordered. Monitor patient. Patient ultimately given Ativan 2 mg IM. Afterwards we were able to get straight catheter UA and then ultimately IV started. Patient calmed significantly after both Geodon and Ativan 2 mg. Monitor patient. 1400: Patient is markedly improved. She is alert and oriented and knows where she is and where she is at. She does not remember the entire circumstances. Apparently she's had this going on for about 2 days and was seen here for the same on Wednesday when it initially started. It turns out she is out of her prazosin. Not sure what got her into the acute psychosis but she has not slept in 2 days and she has slept quite a bit here today. Overall she is much improved and her daughters agree. At this point we believe it is safe for discharge home. I'm not sure if it was the Geodon or the Ativan or both especially in combination with sleep that was helpful but this was an effective therapy. Discharged home with return precautions. Patient verbalize understanding instructions and agreement with plan. ECG Initial ECG Impression Date: Mar 10, 2019 Initial ECG Impression Time: 11:08 Initial ECG Rate: 105 Initial ECG Rhythm: S.Tach Comment Sinus tachycardia with normal axis. No evidence of ST elevation NE. Similar to previous of 03/08/19. Interpreted by me. Departure Impression Primary Impression: Acute psychosis Additional Impression: Ashley Disposition: 01 HOME, SELF-CARE Condition: Improved Departure-Patient Inst. Decision time for Depature: 14:08 Referrals: SELFCESIA MD (PCP) Primary Care Physician TARIQ FOSTER APRN (Family) Primary Care Physician Patient Instructions: Acute Psychosis (DC), Bipolar Disorder (DC) Add. Discharge Instructions: All discharge instructions reviewed with patient and/or family. Voiced understanding. Continue home meds as previously prescribed. Drink plenty of fluids. Get some rest and eat a normal diet. Follow-up with your doctor at specially your psychiatrist for recheck and further evaluation. Return for worse pain, fever, vomiting, weakness, breathing problems, psychosis or other concerns as needed. Scripts Prazosin HCl (Prazosin HCl) 1 Mg Capsule 1 MG PO HS, #14 CAP Prov: PRECIOUS GARCIA MD 03/10/19 PRECIOUS GARCIA MD Mar 10, 2019 10:52
[2019-03-10] MEDS ORDERED: LORazepam INJ 2 MG/ML (ATIVAN) VIAL IM ONE (11:30)
[2019-03-10 12:06] LABS: AMPHETAMINE SCREEN, URINE NEGATIVE (NEGATIVE); BARBITURATE SCREEN URINE NEGATIVE (NEGATIVE); BENZODIAZEPINES SCREEN URINE POSITIVE (NEGATIVE); BILIRUBIN,URINE 2+ (NEGATIVE); CANNABINOID SCREEN, URINE NEGATIVE (NEGATIVE); CLARITY,URINE CLEAR; COCAINE SCREEN URINE NEGATIVE (NEGATIVE); COLOR,URINE YELLOW; GLUCOSE, URINE (UA) NEGATIVE (NEGATIVE); KETONES,URINE 3+ (NEGATIVE); METHADONE STAT NEGATIVE (NEGATIVE); METHAMPHETAMINE SCREEN URINE S NEGATIVE (NEGATIVE); NITRITE,URINE NEGATIVE (NEGATIVE); OPIATE SCREEN URINE NEGATIVE (NEGATIVE); OXYCODONE STAT NEGATIVE (NEGATIVE); PROPOXYPHENE STAT NEGATIVE (NEGATIVE); PROTEIN,URINE 1+ (NEGATIVE); TRICYCLIC ANTIDEPRESSANTS SCRE POSITIVE (NEGATIVE)
[2019-03-10 12:07] LABS: BACTERIA,URINE TRACE /HPF; LEUKOCYTE ESTERASE ,URINE NEGATIVE (NEGATIVE)
[2019-03-10 12:41] LABS: BASOPHILS % (AUTO) 0 % (0-10); EOSINOPHILS % (AUTO) 0 % (0-10); HEMATOCRIT 40 % (35-52); HEMOGLOBIN 13.5 G/DL (11.5-16.0); LYMPHOCYTES # (AUTO) 1.5 X 10^3 (1.0-4.0); LYMPHOCYTES % (AUTO) 18 % (12-44); MEAN CORPUSCULAR HEMOGLOBIN 30 PG (25-34); MEAN CORPUSCULAR HGB CONC 34 G/DL (32-36); MEAN CORPUSCULAR VOLUME 89 FL (80-99); MEAN PLATELET VOLUME 9.2 FL (7.4-10.4); MONOCYTES # (AUTO) 0.4 X 10^3 (0.0-1.0); MONOCYTES % (AUTO) 5 % (0-12); NEUTROPHILS # (AUTO) 6.4 X 10^3 (1.8-7.8); NEUTROPHILS % (AUTO) 77 % (42-75); PLATELET COUNT 267 10^3/uL (130-400); RED CELL DISTRIBUTION WIDTH 14.4 % (10.0-14.5); WHITE BLOOD COUNT 8.4 10^3/uL (4.3-11.0)
[2019-03-10 12:55] LABS: ALANINE AMINOTRANSFERASE 17 U/L (0-55); ALBUMIN 4.4 GM/DL (3.2-4.5); ALKALINE PHOSPHATASE 99 U/L (40-136); BILIRUBIN,TOTAL 0.3 MG/DL (0.1-1.0); BUN/CREATININE RATIO 22; CALCIUM 9.9 MG/DL (8.5-10.1); CARBON DIOXIDE 22 MMOL/L (21-32); CHLORIDE 102 MMOL/L (98-107); CREATININE SERUM 0.69 MG/DL (0.60-1.30); GFR ESTIMATED > 60; GLUCOSE 122 MG/DL (70-105); POTASSIUM 3.6 MMOL/L (3.6-5.0); SALICYLATE < 5.0 MG/DL (5.0-20.0); SODIUM 142 MMOL/L (135-145)
[2019-03-10 12:56] LABS: ACETAMINOPHEN < 10 UG/ML (10-30)
[2019-03-10] MEDS ORDERED: PRAZ1CAP2 PO (14:10)
[2019-03-10 14:19] VITALS: BP 147/80
== END 2019-03-10 14:19 | disposition home or self-care (01) ==
LOC: EDUNIT# 10:17 → ER FS 10:18
DX: F23 Brief psychotic disorder (principal); F30.2 Manic episode, severe with psychotic symptoms; J44.9 Chronic obstructive pulmonary disease, unspecified; I10 Essential (primary) hypertension; E11.40 Type 2 diabetes mellitus with diabetic neuropathy, unspecified; F41.9 Anxiety disorder, unspecified; F31.9 Bipolar disorder, unspecified; B19.20 Unspecified viral hepatitis C without hepatic coma; Z88.2 Allergy status to sulfonamides; Z88.1 Allergy status to other antibiotic agents
CPT/HCPCS: 36415; 80053; 80306; 80320; 80329; 81000; 84443; 85025; 93005; 93041; 96360; 96372

== ENCOUNTER 2019-03-17 14:22 | Emergency (ER) | payer MEDICAID ==
[~2019-03-17] VITALS: Ht 160 cm; Wt 84.4 kg
[~2019-03-17 14:22] MED LIST changes: +PRAZ1CAP2 PO; -TRAM50TA2 PO; +TRM50T PO
[2019-03-17] MEDS ORDERED: NS IV 1000 ML 1,000 ML IV SCH ×2 (14:38→16:15)
[2019-03-17] MEDS ORDERED: LORazepam INJ 2 MG/ML (ATIVAN) VIAL IVP ONE (14:45)
--- NOTE | 2019-03-17 14:48 | ED Psychosocial ---
General Stated Complaint: DRUG INDUCED PSYCHOSIS Source: EMS Exam Limitations: clinical condition (RICHARD RAMSEY DO) History of Present Illness Date Seen by Provider: Mar 17, 2019 Time Seen by Provider: 14:32 Initial Comments The patient is a 53-year-old female brought in by EMS for evaluation of likely substance abuse. The patient has a known history of methamphetamine and other illicit substance abuse. The patient denies any recent drug use. She believes that it is currently January. She lives with her daughter who was the one that called EMS. Upon arrival she has no complaints. She is noted to be tachycardic and her pupils are dilated. She does appear to be somewhat anxious. She denies any history of mental health illness and denies taking any prescription medications. The history is limited at this time as the patient is clearly under the influence of something. She is alert, anxious, but appears to be in no distress. She denies suicidal or homicidal ideation. She denies headache, neck pain, vision changes, chest pain or shortness of breath, abdominal or back pain, or any other complaints. (RICHARD RAMSEY DO) Allergies and Home Medications Allergies Coded Allergies: Sulfa (Sulfonamide Antibiotics) (Verified Allergy, Unknown, 10/04/18) erythromycin base (Verified Allergy, Unknown, 10/04/18) tetracycline (Verified Allergy, Unknown, 10/04/18) Home Medications Cephalexin 500 Mg Capsule, 500 MG PO TID Prescribed by: CHLOE SHAFER on 03/08/191938 Diclofenac Sodium 50 Mg Tablet.dr, 50 MG PO BID Prescribed by: JERRI DAWKINS on 02/08/19 165 Ibuprofen 800 Mg Tablet, 800 MG PO Q8H PRN for PAIN Prescribed by: TERRA LEVY on 01/28/191732 Prazosin HCl 1 Mg Capsule, 1 MG PO HS Prescribed by: PRECIOUS GARCIA on 03/10/19 1410 [morphine 15mg IR tab] , 15 MG PO Q6H Prescribed by: TERRA LEVY on 01/28/191732 Patient Home Medication List Home Medication List Reviewed: Yes (RICHARD RAMSEY DO) Review of Systems Constitutional: no symptoms reported EENTM: no symptoms reported Respiratory: no symptoms reported Cardiovascular: no symptoms reported Gastrointestinal: no symptoms reported Genitourinary: no symptoms reported Musculoskeletal: no symptoms reported Skin: no symptoms reported Psychiatric/Neurological: Anxiety (RICHARD RAMSEY DO) All Other Systems Reviewed Negative Unless Noted: Yes (RICHARD RAMSEY DO) Past Vybyqhs-Edwcmy-Cfrwtt Hx Past Med/Social Hx: Reviewed Nursing Past Med/Soc Hx (RICHARD RAMSEY DO) Patient Social History Drug of Choice: Past hx Meth, THC, daughters report 03/10/19 possible flacca use Type Used: Cigarettes 2nd Hand Smoke Exposure: No Recent Foreign Travel: No Recent Hopitalizations: No (RICHARD RAMSEY DO) Seasonal Allergies Seasonal Allergies: No (RICHARD RAMSEY DO) Past Medical History Surgeries: Yes (BACK, LAMINECTOMY) Orthopedic Respiratory: Yes COPD Cardiac: Yes Hypertension Neurological: Yes Neuropathy Genitourinary: No Gastrointestinal: Yes (Hep C) Hepatitis Musculoskeletal: Yes Rheumatoid Arthritis, Back Injury, Chronic Back Pain Endocrine: Yes Diabetes, Non-Insulin dep HEENT: No Cancer: No Psychosocial: Yes (Major depressive disorder) Anxiety, Bipolar Integumentary: No Blood Disorders: No Adverse Reaction/Blood Tranf: No (RICHARD RAMSEY DO) Family Medical History History obtained from records due to altered mental status and underlying condition. (RICHARD RAMSEY DO) Physical Exam Vital Signs - First Documented 03/17/19 14:35 Temp 36.6 Pulse 118 Resp 24 B/P (MAP) 131/82 (98) Pulse Ox 98 O2 Delivery Room Air (JESENIA ASHBY MD) Capillary Refill : (RICHARD RAMSEY DO) Height, Weight, BMI Height: 5'4.00" Weight: 190lbs. oz. 86.784491ez; 32.00 BMI Method:Stated General Appearance: WD/WN, no apparent distress HEENT: other (pupil dilation) Respiratory: lungs clear, normal breath sounds, no respiratory distress, no accessory muscle use Cardiovascular: no edema, no JVD, tachycardia Gastrointestinal: normal bowel sounds, non tender, soft Extremities: normal range of motion, non-tender, no pedal edema Neurologic/Psychiatric: alert, other (appears anxious and intoxicated, speech is clear without slurring) Behavior/Eye Contact: cooperative, good eye contact Skin: normal color, warm/dry (RICHARD RAMSEY DO) Progress/Results/Core Measures Results/Orders Lab Results Laboratory Tests Test 03/17/19 14:45 03/17/19 17:35 Range/Units White Blood Count 8.2 4.3-11.0 10^3/uL Red Blood Count 4.74 4.35-5.85 10^6/uL Hemoglobin 14.1 11.5-16.0 G/DL Hematocrit 41 35-52 % Mean Corpuscular Volume 86 80-99 FL Mean Corpuscular Hemoglobin 30 25-34 PG Mean Corpuscular Hemoglobin Concent 35 32-36 G/DL Red Cell Distribution Width 13.9 10.0-14.5 % Platelet Count 308 130-400 10^3/uL Mean Platelet Volume 9.7 7.4-10.4 FL Neutrophils (%) (Auto) 72 42-75 % Lymphocytes (%) (Auto) 22 12-44 % Monocytes (%) (Auto) 4 0-12 % Eosinophils (%) (Auto) 1 0-10 % Basophils (%) (Auto) 1 0-10 % Neutrophils # (Auto) 5.9 1.8-7.8 X 10^3 Lymphocytes # (Auto) 1.8 1.0-4.0 X 10^3 Monocytes # (Auto) 0.4 0.0-1.0 X 10^3 Eosinophils # (Auto) 0.1 0.0-0.3 10^3/uL Basophils # (Auto) 0.1 0.0-0.1 10^3/uL Sodium Level 143 135-145 MMOL/L Potassium Level 3.9 3.6-5.0 MMOL/L Chloride Level 101 98-107 MMOL/L Carbon Dioxide Level 21 21-32 MMOL/L Anion Gap 21 H 5-14 MMOL/L Blood Urea Nitrogen 24 H 7-18 MG/DL Creatinine 0.86 0.60-1.30 MG/DL Estimat Glomerular Filtration Rate > 60 BUN/Creatinine Ratio 28 Glucose Level 127 H 70-105 MG/DL Calcium Level 10.5 H 8.5-10.1 MG/DL Corrected Calcium 8.5-10.1 MG/DL Total Bilirubin 0.3 0.1-1.0 MG/DL Aspartate Amino Transf (AST/SGOT) 17 5-34 U/L Alanine Aminotransferase (ALT/SGPT) 15 0-55 U/L Alkaline Phosphatase 117 40-136 U/L Total Protein 8.6 H 6.4-8.2 GM/DL Albumin 4.8 H 3.2-4.5 GM/DL Salicylates Level < 0.3 L 5.0-20.0 MG/DL Acetaminophen Level < 10 L 10-30 UG/ML Serum Alcohol < 10 <10 MG/DL Urine Color YELLOW Urine Clarity CLEAR Urine pH 6.0 5-9 Urine Specific [place] 1.025 H 1.016-1.022 Urine Protein NEGATIVE NEGATIVE Urine Glucose (UA) NEGATIVE NEGATIVE Urine Ketones 3+ H NEGATIVE Urine Nitrite NEGATIVE NEGATIVE Urine Bilirubin 1+ H NEGATIVE Urine Urobilinogen 0.2 < = 1.0 MG/DL Urine Leukocyte Esterase NEGATIVE NEGATIVE Urine RBC (Auto) NEGATIVE NEGATIVE Urine RBC NONE /HPF Urine WBC 0-2 /HPF Urine Squamous Epithelial Cells 5-10 /HPF Urine Crystals NONE /LPF Urine Bacteria NEGATIVE /HPF Urine Casts PRESENT /LPF Urine Hyaline Casts 0-2 H /LPF Urine Mucus SMALL H /LPF Urine Yeast FEW H /HPF Urine Culture Indicated NO Urine Test NEGATIVE NEGATIVE Urine Opiates Screen POSITIVE H NEGATIVE Urine Oxycodone Screen NEGATIVE NEGATIVE Urine Methadone Screen NEGATIVE NEGATIVE Urine Propoxyphene Screen NEGATIVE NEGATIVE Urine Barbiturates Screen NEGATIVE NEGATIVE Ur Tricyclic Antidepressants Screen POSITIVE H NEGATIVE Urine Phencyclidine Screen NEGATIVE NEGATIVE Urine Amphetamines Screen NEGATIVE NEGATIVE Urine Methamphetamines Screen NEGATIVE NEGATIVE Urine Benzodiazepines Screen POSITIVE H NEGATIVE Urine Cocaine Screen NEGATIVE NEGATIVE Urine Cannabinoids Screen NEGATIVE NEGATIVE (JESENIA ASHBY MD) Medications Given in ED Current Medications Medications Dose Ordered Sig/Jorge Route Start Time Stop Time Status Last Admin Dose Admin Lorazepam 1 mg ONCE ONCE IVP 03/17/19 14:45 03/17/19 14:46 DC 03/17/19 15:19 1 MG (JESENIA ASHBY MD) Vital Signs/I&O 03/17/19 14:35 Temp 36.6 Pulse 118 Resp 24 B/P (MAP) 131/82 (98) Pulse Ox 98 O2 Delivery Room Air (JESENIA ASHBY MD) Progress Progress Note : Progress Note @1700 - Case discussed with 3 of the patient's children who state that she does have a history of substance abuse but also has a history of bipolar disorder and has been noncompliant with her medications. They state that she was in this emergency department recently and was given a dose of Haldol which seemed to improve her symptoms significantly. They state that she is currently living at home alone. @1800 - Pt care transferred from Dr. Ramsey to Dr. Ashby at this time. Awaiting UDS and mental health evaluation as pt may need inpatient treatment. She has been calm and cooperative up to this point. (RICHARD RAMSEY DO) Progress Note : Progress Note Patient was medically cleared by Dr. Ramsey and he had her screened by mental health. When they spoke with her and one of the daughters they felt she was not SI/HI and that she was not an imminent danger to herself or others so they did not have an indication for involuntary psychiatric admission. She does not meet criteria for a medical admit either. Will discharge with instructions to stay hydrated and to make sure she takes only her medicines as prescribed and to not take other peoples medicines or things from other people. (JESENIA ASHBY MD) Initial ECG Impression Date: Mar 17, 2019 Initial ECG Impression Time: 15:04 Comment @1504 - Sinus tachycardia, rate of 111, no acute ischemic findings noted, no STEMI, normal axis, reviewed and interpreted by myself (RICHARD RAMSEY DO) Departure Impression Primary Impression: Dehydration Additional Impressions: Acute psychosis Substance abuse Disposition: 01 HOME, SELF-CARE Condition: Stable Departure-Patient Inst. Decision time for Depature: 20:32 (JESENIA ASHBY MD) Referrals: CESIA BEAR MD (PCP) Primary Care Physician TARIQ FOSTER APRN (Family) Primary Care Physician Patient Instructions: Polysubstance Abuse (DC), Acute Psychosis (DC), Dehydration, Adult (DC) Add. Discharge Instructions: Take your medicine as prescribed and do not take medicine or drugs that are not prescribed for you Drink plenty of water and stay hydrated Follow up with clinic for further concerns RICHARD RAMSEY DO Mar 17, 2019 14:48 JESENIA ASHBY MD Mar 17, 2019 20:34
[2019-03-17 14:59] LABS: HEMATOCRIT 41 % (35-52); HEMOGLOBIN 14.1 G/DL (11.5-16.0); MEAN CORPUSCULAR HEMOGLOBIN 30 PG (25-34); MEAN CORPUSCULAR VOLUME 86 FL (80-99); WHITE BLOOD COUNT 8.2 10^3/uL (4.3-11.0)
[2019-03-17 15:00] LABS: BASOPHILS # (AUTO) 0.1 10^3/uL (0.0-0.1); BASOPHILS % (AUTO) 1 % (0-10); EOSINOPHILS # (AUTO) 0.1 10^3/uL (0.0-0.3); EOSINOPHILS % (AUTO) 1 % (0-10); LYMPHOCYTES # (AUTO) 1.8 X 10^3 (1.0-4.0); LYMPHOCYTES % (AUTO) 22 % (12-44); MEAN CORPUSCULAR HGB CONC 35 G/DL (32-36); MEAN PLATELET VOLUME 9.7 FL (7.4-10.4); MONOCYTES # (AUTO) 0.4 X 10^3 (0.0-1.0); MONOCYTES % (AUTO) 4 % (0-12); NEUTROPHILS # (AUTO) 5.9 X 10^3 (1.8-7.8); NEUTROPHILS % (AUTO) 72 % (42-75); PLATELET COUNT 308 10^3/uL (130-400); RED CELL DISTRIBUTION WIDTH 13.9 % (10.0-14.5)
--- NOTE | 2019-03-17 15:10 | NUR ---
Utilizing patient's dgt 2 walk patient holding each arm to get her to the bathroom. Hat placed on toilet and patient missed her urination in container. Add'l hat placed at back of side and again asked to try a few more drops and pt could not urinate. Much coaching involved to get pt to follow a simple command at times. Pt taps fingers frequently on objects. Denies heart racing. Sinus tahcycardia 100-118 has been noted.
[2019-03-17 15:29] LABS: BILIRUBIN,TOTAL 0.3 MG/DL (0.1-1.0); BUN/CREATININE RATIO 28; CALCIUM 10.5 MG/DL (8.5-10.1); CARBON DIOXIDE 21 MMOL/L (21-32); CHLORIDE 101 MMOL/L (98-107); CREATININE SERUM 0.86 MG/DL (0.60-1.30); GFR ESTIMATED > 60; GLUCOSE 127 MG/DL (70-105); POTASSIUM 3.9 MMOL/L (3.6-5.0); SODIUM 143 MMOL/L (135-145)
[2019-03-17 15:30] LABS: ACETAMINOPHEN < 10 UG/ML (10-30); ALANINE AMINOTRANSFERASE 15 U/L (0-55); ALBUMIN 4.8 GM/DL (3.2-4.5); ALKALINE PHOSPHATASE 117 U/L (40-136); SALICYLATE < 0.3 MG/DL (5.0-20.0); TOTAL PROTEIN 8.6 GM/DL (6.4-8.2)
--- NOTE | 2019-03-17 17:10 | NUR ---
Dr Light to room to speak with patient and 3 of her 5 children are present. Dgts describe similar reoccurance of becoming unaware of what is going on, can't remember if she took her meds or ate. Pt recently in ER 03/08 and 03/10. Pt has the similar tremorous shakes mimicking like "Parkinson's" the dgts state. Pt had some Hydrocodone refilled recently like Wednesday and she began to have this problem return. Children believe she is not currently on a recreational or street drug.
--- NOTE | 2019-03-17 17:28 | NUR ---
Per request of registration a man at [facility] wants Dr in waiting room to give update on this pt. Ghanshyam he is . Spoke with patient and she is not reporting to have a . Dgt states she had a relationship with this man for 28 yrs but not legally and is not in a relationship currently. She advises he needs no info. Enter waiting room and saw a dgt sitting there and she reports this is her biological father. Explained patient information not shared and all the concerns for patient safety and whether medically competent is not on the table for discussion in waiting room and would be deemed a discussion if when family bring up with medical Dr for the legality and direction.
--- NOTE | 2019-03-17 17:35 | NUR ---
Entered room and explained the patient is going to walk with this nurse right now to attempt a urine sample and/or a straight cath will need to be done. Pt has continued to deny ability to void after missing specimen collection hat hours ago. Urine is obtained at this time to send to lab.
--- NOTE | 2019-03-17 18:00 | NUR ---
Dgts leaving and left phone number to contact when something is finally decided.
[2019-03-17 18:04] LABS: AMPHETAMINE SCREEN, URINE NEGATIVE (NEGATIVE); BENZODIAZEPINES SCREEN URINE POSITIVE (NEGATIVE); CANNABINOID SCREEN, URINE NEGATIVE (NEGATIVE); COCAINE SCREEN URINE NEGATIVE (NEGATIVE); HCG,QUALITATIVE URINE NEGATIVE (NEGATIVE); METHAMPHETAMINE SCREEN URINE S NEGATIVE (NEGATIVE)
[2019-03-17 18:05] LABS: BARBITURATE SCREEN URINE NEGATIVE (NEGATIVE); COLOR,URINE YELLOW; METHADONE STAT NEGATIVE (NEGATIVE); OPIATE SCREEN URINE POSITIVE (NEGATIVE); OXYCODONE STAT NEGATIVE (NEGATIVE); PROPOXYPHENE STAT NEGATIVE (NEGATIVE); TRICYCLIC ANTIDEPRESSANTS SCRE POSITIVE (NEGATIVE)
[2019-03-17 18:06] LABS: BACTERIA,URINE NEGATIVE /HPF; BILIRUBIN,URINE 1+ (NEGATIVE); CLARITY,URINE CLEAR; GLUCOSE, URINE (UA) NEGATIVE (NEGATIVE); KETONES,URINE 3+ (NEGATIVE); LEUKOCYTE ESTERASE ,URINE NEGATIVE (NEGATIVE); NITRITE,URINE NEGATIVE (NEGATIVE); PROTEIN,URINE NEGATIVE (NEGATIVE); WBC,URINE 0-2 /HPF
[2019-03-17 18:07] LABS: HYALINE CASTS, URINE 0-2 /LPF; YEAST,URINE FEW /HPF
--- NOTE | 2019-03-17 18:22 | NUR ---
Initiate call for mental health screening.
--- NOTE | 2019-03-17 18:37 | NUR ---
Rec'd tracking number [id number] and need to fax necessary documentation to [phone] per Loly.
--- NOTE | 2019-03-17 19:00 | NUR ---
Faxed records to the [facility].
--- NOTE | 2019-03-17 19:10 | NUR ---
Call returned from Yuridia the Mental health Screener. The Laptop obtained and connected to Zoom and brought to pt's room. The screener aware of her dgt in room and they would like to have her presence for screening for some input. The dgts make the 911 calls on each of their visits to her. Report to Jena SARGENT.
--- NOTE | 2019-03-17 19:55 | NUR ---
This RN spoke with mental health screener via laptop. Mental health screener states that the patient is not suicidal or homicidal and they couldn't justify involuntary admission. Mental health screener also states that she will speak with a co-worker to make sure and she will call us back.
--- NOTE | 2019-03-17 20:26 | NUR ---
Yuridia from mental health called and advised that the patient does not meet requirments for admission. She also states that they are going to do a safety plan.
--- NOTE | 2019-03-17 20:48 | NUR ---
Yuridia from mental health advises that she is getting ready to fax the safety plan. She also states that she is going to follow up with the family tomorrow.
[2019-03-17 21:55] VITALS: BP 134/89
== END 2019-03-17 21:55 | disposition home or self-care (01) ==
LOC: EDUNIT# 14:22 → ER FS 14:29
DX: E86.0 Dehydration (principal); F23 Brief psychotic disorder; F41.9 Anxiety disorder, unspecified; J44.9 Chronic obstructive pulmonary disease, unspecified; I10 Essential (primary) hypertension; E11.40 Type 2 diabetes mellitus with diabetic neuropathy, unspecified; F15.10 Other stimulant abuse, uncomplicated; B19.20 Unspecified viral hepatitis C without hepatic coma; M06.9 Rheumatoid arthritis, unspecified; F31.9 Bipolar disorder, unspecified; Z88.2 Allergy status to sulfonamides; Z88.1 Allergy status to other antibiotic agents
CPT/HCPCS: 36415; 80053; 80306; 80320; 80329; 81000; 84703; 85025; 93005; 93041; 96361; 96374

== ENCOUNTER 2019-03-24 20:19 | Emergency (ER) | payer MEDICAID ==
[~2019-03-24] VITALS: Ht 162.5 cm; Wt 86.3 kg
[~2019-03-24 20:19] MED LIST changes: +LISI1TAB25; -LISI1TAB8
--- NOTE | 2019-03-24 21:33 | NUR ---
Report given to Jaja. Care transferred at this time.
[2019-03-24 23:30] VITALS: BP 126/75
--- NOTE | 2019-03-25 01:06 | NUR ---
PT LEFT WITHOUT SEEING THE DOCTOR. SHE HAD BEEN SLEEPING ON THE CART.
== END 2019-03-24 23:00 | disposition left against medical advice (07) ==
LOC: EDUNIT# 20:19 → ER FS 20:20
DX: M54.5 Low back pain (principal); M25.552 Pain in left hip; M79.605 Pain in left leg; W19.XXXA Unspecified fall, initial encounter
CPT/HCPCS: 99282

== ENCOUNTER 2019-05-23 05:40 | Outpatient (CLI) | payer MEDICAID ==
[~2019-05-23] VITALS: Ht 162 cm; Wt 86.3 kg
[~2019-05-23 05:40] MED LIST changes: -ATOR20TA66; +ATOR20TA66 PO; -GABA-490; +GABA-490 PO
[2019-05-23] MEDS ORDERED: LAMO25TA8 PO (14:12)
[2019-05-23] MEDS ORDERED: LISI1TAB25 PO (14:12)
[2019-05-23] MEDS ORDERED: PRAZ1CAP2 PO (14:12)
[2019-05-23] MEDS ORDERED: QUET100T PO (14:12)
[2019-05-23] MEDS ORDERED: DICL1ADH18 TD (14:12)
[2019-05-23] MEDS ORDERED: HYDR-4226 PO (14:12)
[2019-05-23] MEDS ORDERED: EXEN2PEN SQ (14:12)
[2019-05-23] MEDS ORDERED: CRV25T PO (14:12)
[2019-05-23] MEDS ORDERED: DAPA5TAB PO (14:12)
[2019-05-23] MEDS ORDERED: METF-397 PO (14:12)
[2019-05-23] MEDS ORDERED: QUET400T PO (14:12)
[2019-05-23] MEDS ORDERED: DIPH25CA79 PO (14:18)
[2019-05-23] MEDS ORDERED: BUTA1CAP37 PO (14:18)
== END 2019-05-23 14:19 | disposition home or self-care (01) ==
LOC: PREOP 05:40
PROVIDERS: ATTEND Surgery
DX: Z01.818 Encounter for other preprocedural examination (principal)

== ENCOUNTER 2019-06-11 20:20 | Emergency (ER) | payer MEDICAID ==
[~2019-06-11] VITALS: Ht 162.5 cm; Wt 85.6 kg
[~2019-06-11 20:20] MED LIST changes: +BUTA1CAP37 PO; +CRV25T PO; +DAPA5TAB PO; +DICL1ADH18 TD; +DIPH25CA79 PO; +EXEN2PEN SQ; +HYDR-4226 PO; +LAMO25TA8 PO; +LISI1TAB25 PO; +METF-397 PO; +QUET100T PO; +QUET400T PO
--- OUTSIDE RECORDS SUMMARY | 2019-06-11 20:29 | XMS REPORT | Continuity of Care Document ---
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 calculation of estimated glomerular filtration rate > NRG Serum or plasma glucose measurement (mass/volume) 118 mg/dL 70-105 Serum or plasma calcium measurement (mass/volume) 9.7 mg/dL 8.5-10.1 Serum or plasma total bilirubin measurement (mass/volu me) 0.4 mg/dL 0.1-1.0 Serum or plasma alkaline phosphatase magali surement (enzymatic activity/volume) 108 U/L 40-136 Serum or plasma aspartate aminotransfera se measurement (enzymatic activity/volume) 40 U/L 5-34 Serum or plasma alanine aminotransferase measurement (enzymatic activity/volume) 23 U/L 0-55 Serum or plasma protein measurement (mass/volume) 8.4 g/dL 6.4-8.2 Serum or plasma albumin measurement (mass/volume) 4.5 g/dL 3.2-4.5 CALCIUM CORRECTED 9.3 mg/dL 8.5-10.1 Serum or plasma salicylates measurement (mass/volume) - 03/08/19 16:39 Serum or plasma salicylates measurement (mass/volume) < mg/dL 5.0-20.0 Serum or plasma acetaminophen measuremen t (mass/volume) - 03/08/19 16:39 Serum or plasma acetaminophen measurement (mass/volume ) < ug/mL 10-30 Serum or plasma ethanol measurement (mas s/volume) - 03/08/19 16:39 Serum or plasma ethanol measurement (mass/volume) < mg/dL <10 Complete blood count (CBC) with automate d white blood cell (WBC) differential - 03/08/19 16:39 Blood leukocytes automated count (number/volume) 7.1 10*3/uL 4.3-11.0 Blood erythrocytes automated count (number/volume) 4.52 10*6/uL 4.35-5.85 Venous blood hemoglobin measurement (mass/volume) 13.5 g/dL 11.5-16.0 Blood hematocrit (volume fraction) 40 % 35-52 Automated erythrocyte mean corpuscular volume 89 [ foz_us] 80-99 Automated erythrocyte mean corpuscular h emoglobin (mass per erythrocyte) 30 pg 25-34 Automated erythrocyte mean corpuscular h emoglobin concentration measurement (mass/volume) 34 g/dL 32-36 Automated erythrocyte distribution width ratio 14. 6 % 10.0- 14.5 Automated blood platelet count (count/volume) 250 10*3/uL 130-400 Automated blood platelet mean volume measurement 9.5 [foz_us] 7.4-10.4 Automated blood neutrophils/100 leukocytes 64 % 42-75 Automated blood lymphocytes/100 leukocytes 26 % 12-44 Blood monocytes/100 leukocytes 5 % 0-12 Automated blood eosinophils/100 leukocytes 4 % 0-10 Automated blood basophils/100 leukocytes 1 % 0-10 Blood neutrophils automated count (number/volume) 4.6 10*3 1.8-7.8 Blood lymphocytes automated count (number/volume) 1.9 10*3 1.0-4.0 Blood monocytes automated count (number/volume) 0. 4 10*3 0.0-1.0 Automated eosinophil count 0.3 10*3/uL 0 .0-0.3 Automated blood basophil count (count/volume) 0.1 10*3/uL 0.0-0.1 Complete urinalysis with reflex to cultu re - 03/08/19 16:55 Urine color determination YELLOW NRG Urine clarity determination CLOUDY NR G Urine pH measurement by test strip 6.0 5-9 Specific gravity of urine by test strip 1.025 1.016-1.022 Urine protein assay by test strip, semi-quantitative NEGATIVE NEGATIVE Urine glucose detection by automated test strip 1+ NEGATIVE Erythrocytes detection in urine sediment by light micr oscopy NEGATIVE NEGATIVE Urine ketones detection by automated test strip 2+ NEGATIVE Urine nitrite detection by test strip POSITIVE NEGATIVE Urine total bilirubin detection by test strip NEGA TIVE NEGATIVE Urine urobilinogen measurement by automated test strip (mass/volume) 0.2 mg/dL < = 1.0 Urine leukocyte esterase detection by dipstick TRA CE NEGATIVE Automated urine sediment erythrocyte cou nt by microscopy (number/high power field) [HPF] NRG Automated urine sediment leukocyte count by microscopy (number/high power field) [HPF] NRG Bacteria detection in urine sediment by light microsco py LARGE NRG Squamous epithelial cells detection in u rine sediment by light microscopy 5-10 NRG Crystals detection in urine sediment by light microsco py NONE NRG Casts detection in urine sediment by light microscopy NONE NRG Mucus detection in urine sediment by light microscopy NEGATIVE NRG Complete urinalysis with reflex to culture YES NRG Urine drug screening test - 03/08/19 16: 55 Urine phencyclidine detection by screening method NEGATIVE NEGATIVE Urine benzodiazepines detection by screening method NEGATIVE NEGATIVE Urine cocaine detection NEGATIVE NEGATI VE Urine amphetamines detection by screening method N EGATIVE NEGATIVE Urine methamphetamine detection by screening method NEGATIVE NEGATIVE Urine cannabinoids detection by screening method N EGATIVE NEGATIVE Urine opiates detection by screening method POSITI VE NEGATIVE Urine barbiturates detection NEGATIVE N EGATIVE Screening urine tricyclic antidepressants detection POSITIVE NEGATIVE Urine methadone detection by screening method NEGA TIVE NEGATIVE Urine oxycodone detection NEGATIVE NEGA TIVE Urine propoxyphene detection NEGATIVE N EGATIVE Bacterial urine culture - 03/08/19 16:55 Bacterial urine culture [id number] NRG COLONY COUNT >100,000/ML NRG FTX;REPORTABLE SUSCEPTIBILITY REPORTED 03/11 10:05 NRG FREE TEXT ENTRY 2 PRELIM RAPID ID AT [facility] NRG Dirithromycin susceptibility test by dis k diffusion - 03/08/19 16:55 Gentamicin susceptibility test by minimum inhibitory c oncentration <= NRG Trimethoprim/sulfamethoxazole susceptibi lity test by minimum inhibitoryconcentration <= NRG Levofloxacin susceptibility test by minimum inhibitory concentration <= NRG Ampicillin susceptibility test by minimum inhibitory c oncentration > NRG Cefazolin susceptibility test by minimum inhibitory co ncentration 2 NRG Ceftriaxone susceptibility test by minimum inhibitory concentration <= NRG Ciprofloxacin susceptibility test by minimum inhibitor y concentration <= NRG Meropenem susceptibility test by minimum inhibitory co ncentration <= NRG Nitrofurantoin susceptibility test by mi nimum inhibitory concentration <= NRG Amoxicillin and clavulanate potassium susc BRIELLE = NRG Urine drug screening test - 03/10/19 11: 40 Urine phencyclidine detection by screening method NEGATIVE NEGATIVE Urine benzodiazepines detection by screening method POSITIVE NEGATIVE Urine cocaine detection NEGATIVE NEGATI VE Urine amphetamines detection by screening method N EGATIVE NEGATIVE Urine methamphetamine detection by screening method NEGATIVE NEGATIVE Urine cannabinoids detection by screening method N EGATIVE NEGATIVE Urine opiates detection by screening method NEGATI VE NEGATIVE Urine barbiturates detection NEGATIVE N EGATIVE Screening urine tricyclic antidepressants detection POSITIVE NEGATIVE Urine methadone detection by screening method NEGA TIVE NEGATIVE Urine oxycodone detection NEGATIVE NEGA TIVE Urine propoxyphene detection NEGATIVE N EGATIVE Complete urinalysis with reflex to cultu re - 03/10/19 11:40 Urine color determination YELLOW NRG Urine clarity determination CLEAR NR G Urine pH measurement by test strip 6.0 5-9 Specific gravity of urine by test strip > 1.016-1.022 Urine protein assay by test strip, semi-quantitative 1+ NEGATIVE Urine glucose detection by automated test strip NE GATIVE NEGATIVE Erythrocytes detection in urine sediment by light micr oscopy NEGATIVE NEGATIVE Urine ketones detection by automated test strip 3+ NEGATIVE Urine nitrite detection by test strip NEGATIVE NEGATIVE Urine total bilirubin detection by test strip 2+ NEGATIVE Urine urobilinogen measurement by automated test strip (mass/volume) 0.2 mg/dL < = 1.0 Urine leukocyte esterase detection by dipstick NEG ATIVE NEGATIVE Automated urine sediment erythrocyte cou nt by microscopy (number/high power field) NONE NRG Automated urine sediment leukocyte count by microscopy (number/high power field) NONE NRG Bacteria detection in urine sediment by light microsco py TRACE NRG Squamous epithelial cells detection in u rine sediment by light microscopy 2-5 NRG Crystals detection in urine sediment by light microsco py NONE NRG Casts detection in urine sediment by light microscopy NONE NRG Mucus detection in urine sediment by light microscopy SMALL NRG Complete urinalysis with reflex to culture NO NRG Complete blood count (CBC) with automate d white blood cell (WBC) differential - 03/10/19 12:29 Blood leukocytes automated count (number/volume) 8.4 10*3/uL 4.3-11.0 Blood erythrocytes automated count (number/volume) 4.52 10*6/uL 4.35-5.85 Venous blood hemoglobin measurement (mass/volume) 13.5 g/dL 11.5-16.0 Blood hematocrit (volume fraction) 40 % 35-52 Automated erythrocyte mean corpuscular volume 89 [ foz_us] 80-99 Automated erythrocyte mean corpuscular h emoglobin (mass per erythrocyte) 30 pg 25-34 Automated erythrocyte mean corpuscular h emoglobin concentration measurement (mass/volume) 34 g/dL 32-36 Automated erythrocyte distribution width ratio 14. 4 % 10.0- 14.5 Automated blood platelet count (count/volume) 267 10*3/uL 130-400 Automated blood platelet mean volume measurement 9.2 [foz_us] 7.4-10.4 Automated blood neutrophils/100 leukocytes 77 % 42-75 Automated blood lymphocytes/100 leukocytes 18 % 12-44 Blood monocytes/100 leukocytes 5 % 0-12 Automated blood eosinophils/100 leukocytes 0 % 0-10 Automated blood basophils/100 leukocytes 0 % 0-10 Blood neutrophils automated count (number/volume) 6.4 10*3 1.8-7.8 Blood lymphocytes automated count (number/volume) 1.5 10*3 1.0-4.0 Blood monocytes automated count (number/volume) 0. 4 10*3 0.0-1.0 Automated eosinophil count 0.0 10*3/uL 0 .0-0.3 Automated blood basophil count (count/volume) 0.0 10*3/uL 0.0-0.1 Comprehensive metabolic panel - 03/10/19 12:29 Serum or plasma sodium measurement (moles/volume) 142 mmol/L 135-145 Serum or plasma potassium measurement (moles/volume) 3.6 mmol/L 3.6-5.0 Serum or plasma chloride measurement (moles/volume) 102 mmol/L 98-107 Carbon dioxide 22 mmol/L 21-32 Serum or plasma anion gap determination (moles/volume) 18 mmol/L 5-14 Serum or plasma urea nitrogen measurement (mass/volume ) 15 mg/dL 7-18 Serum or plasma creatinine measurement (mass/volume) 0.69 mg/dL 0.60-1.30 Serum or plasma urea nitrogen/creatinine mass ratio 22 NRG Serum or plasma creatinine measurement w ith calculation of estimated glomerular filtration rate > NRG Serum or plasma glucose measurement (mass/volume) 122 mg/dL 70-105 Serum or plasma calcium measurement (mass/volume) 9.9 mg/dL 8.5-10.1 Serum or plasma total bilirubin measurement (mass/volu me) 0.3 mg/dL 0.1-1.0 Serum or plasma alkaline phosphatase maglai surement (enzymatic activity/volume) 99 U/L 40-136 Serum or plasma aspartate aminotransfera se measurement (enzymatic activity/volume) 21 U/L 5-34 Serum or plasma alanine aminotransferase measurement (enzymatic activity/volume) 17 U/L 0-55 Serum or plasma protein measurement (mass/volume) 8.0 g/dL 6.4-8.2 Serum or plasma albumin measurement (mass/volume) 4.4 g/dL 3.2-4.5 CALCIUM CORRECTED 9.6 mg/dL 8.5-10.1 Serum or plasma salicylates measurement (mass/volume) - 03/10/19 12:29 Serum or plasma salicylates measurement (mass/volume) < mg/dL 5.0-20.0 Serum or plasma acetaminophen measuremen t (mass/volume) - 03/10/19 12:29 Serum or plasma acetaminophen measurement (mass/volume ) < ug/mL 10-30 Serum or plasma ethanol measurement (mas s/volume) - 03/10/19 12:29 Serum or plasma ethanol measurement (mass/volume) < mg/dL <10 Serum or plasma thyrotropin measurement by detection limit <=0.05 miu/l (units/volume) - 03/10/19 12:29 Serum or plasma thyrotropin measurement by detection limit <=0.05 miu/l (units/volume) 4.64 u[iU]/mL 0.35-4.94 Complete blood count (CBC) with automate d white blood cell (WBC) differential - 03/17/19 14:45 Blood leukocytes automated count (number/volume) 8.2 10*3/uL 4.3-11.0 Blood erythrocytes automated count (number/volume) 4.74 10*6/uL 4.35-5.85 Venous blood hemoglobin measurement (mass/volume) 14.1 g/dL 11.5-16.0 Blood hematocrit (volume fraction) 41 % 35-52 Automated erythrocyte mean corpuscular volume 86 [ foz_us] 80-99 Automated erythrocyte mean corpuscular h emoglobin (mass per erythrocyte) 30 pg 25-34 Automated erythrocyte mean corpuscular h emoglobin concentration measurement (mass/volume) 35 g/dL 32-36 Automated erythrocyte distribution width ratio 13. 9 % 10.0- 14.5 Automated blood platelet count (count/volume) 308 10*3/uL 130-400 Automated blood platelet mean volume measurement 9.7 [foz_us] 7.4-10.4 Automated blood neutrophils/100 leukocytes 72 % 42-75 Automated blood lymphocytes/100 leukocytes 22 % 12-44 Blood monocytes/100 leukocytes 4 % 0-12 Automated blood eosinophils/100 leukocytes 1 % 0-10 Automated blood basophils/100 leukocytes 1 % 0-10 Blood neutrophils automated count (number/volume) 5.9 10*3 1.8-7.8 Blood lymphocytes automated count (number/volume) 1.8 10*3 1.0-4.0 Blood monocytes automated count (number/volume) 0. 4 10*3 0.0-1.0 Automated eosinophil count 0.1 10*3/uL 0 .0-0.3 Automated blood basophil count (count/volume) 0.1 10*3/uL 0.0-0.1 Comprehensive metabolic panel - 03/17/19 14:45 Serum or plasma sodium measurement (moles/volume) 143 mmol/L 135-145 Serum or plasma potassium measurement (moles/volume) 3.9 mmol/L 3.6-5.0 Serum or plasma chloride measurement (moles/volume) 101 mmol/L 98-107 Carbon dioxide 21 mmol/L 21-32 Serum or plasma anion gap determination (moles/volume) 21 mmol/L 5-14 Serum or plasma urea nitrogen measurement (mass/volume ) 24 mg/dL 7-18 Serum or plasma creatinine measurement (mass/volume) 0.86 mg/dL 0.60-1.30 Serum or plasma urea nitrogen/creatinine mass ratio 28 NRG Serum or plasma creatinine measurement w ith calculation of estimated glomerular filtration rate > NRG Serum or plasma glucose measurement (mass/volume) 127 mg/dL 70-105 Serum or plasma calcium measurement (mass/volume) 10.5 mg/dL 8.5-10.1 Serum or plasma total bilirubin measurement (mass/volu me) 0.3 mg/dL 0.1-1.0 Serum or plasma alkaline phosphatase magali surement (enzymatic activity/volume) 117 U/L 40-136 Serum or plasma aspartate aminotransfera se measurement (enzymatic activity/volume) 17 U/L 5-34 Serum or plasma alanine aminotransferase measurement (enzymatic activity/volume) 15 U/L 0-55 Serum or plasma protein measurement (mass/volume) 8.6 g/dL 6.4-8.2 Serum or plasma albumin measurement (mass/volume) 4.8 g/dL 3.2-4.5 Serum or plasma salicylates measurement (mass/volume) - 03/17/19 14:45 Serum or plasma salicylates measurement (mass/volume) < mg/dL 5.0-20.0 Serum or plasma acetaminophen measuremen t (mass/volume) - 03/17/19 14:45 Serum or plasma acetaminophen measurement (mass/volume ) < ug/mL 10-30 Serum or plasma ethanol measurement (mas s/volume) - 03/17/19 14:45 Serum or plasma ethanol measurement (mass/volume) < mg/dL <10 Urine beta human chorionic gonadotropin (hCG) measurement - 03/17/19 17:35 Urine beta human chorionic gonadotropin (hCG) measurem ent NEGATIVE NEGATIVE Urine drug screening test - 03/17/19 17: 35 Urine phencyclidine detection by screening method NEGATIVE NEGATIVE Urine benzodiazepines detection by screening method POSITIVE NEGATIVE Urine cocaine detection NEGATIVE NEGATI VE Urine amphetamines detection by screening method N EGATIVE NEGATIVE Urine methamphetamine detection by screening method NEGATIVE NEGATIVE Urine cannabinoids detection by screening method N EGATIVE NEGATIVE Urine opiates detection by screening method POSITI VE NEGATIVE Urine barbiturates detection NEGATIVE N EGATIVE Screening urine tricyclic antidepressants detection POSITIVE NEGATIVE Urine methadone detection by screening method NEGA TIVE NEGATIVE Urine oxycodone detection NEGATIVE NEGA TIVE Urine propoxyphene detection NEGATIVE N EGATIVE Complete urinalysis with reflex to cultu re - 03/17/19 17:35 Urine color determination YELLOW NRG Urine clarity determination CLEAR NR G Urine pH measurement by test strip 6.0 5-9 Specific gravity of urine by test strip 1.025 1.016-1.022 Urine protein assay by test strip, semi-quantitative NEGATIVE NEGATIVE Urine glucose detection by automated test strip NE GATIVE NEGATIVE Erythrocytes detection in urine sediment by light micr oscopy NEGATIVE NEGATIVE Urine ketones detection by automated test strip 3+ NEGATIVE Urine nitrite detection by test strip NEGATIVE NEGATIVE Urine total bilirubin detection by test strip 1+ NEGATIVE Urine urobilinogen measurement by automated test strip (mass/volume) 0.2 mg/dL < = 1.0 Urine leukocyte esterase detection by dipstick NEG ATIVE NEGATIVE Automated urine sediment erythrocyte cou nt by microscopy (number/high power field) NONE NRG Automated urine sediment leukocyte count by microscopy (number/high power field) [HPF] NRG Bacteria detection in urine sediment by light microsco py NEGATIVE NRG Squamous epithelial cells detection in u rine sediment by light microscopy 5-10 NRG Crystals detection in urine sediment by light microsco py NONE NRG Casts detection in urine sediment by light microscopy PRESENT NRG Mucus detection in urine sediment by light microscopy SMALL NRG Complete urinalysis with reflex to culture NO NRG Yeast detection in urine sediment by light microscopy FEW NRG Hyaline casts detection in urine sediment by light brielle roscopy 0-2 NRG PDM - GABAPENTIN - 03/23/19 13:24 Prescribed Drug 1 Gabapentin NRG COMMENT NRG Prescribed Drug 3 [place](TM) NRG Gabapentin >254949 ng/mL <1000 medMATCH Gabapentin CONSISTENT NRG SUREPATH PAP AND HPV mRNA E6/E7 - 11:34 CLINICAL INFORMATION: NRG LMP: 3-4 YEARS NRG PREV. PAP: 8 YEARS NRG PREV. BX: NO NRG SOURCE: Cervix NRG STATEMENT OF ADEQUACY: NRG INTERPRETATION/RESULT: NRG OPTICAL LABORATORY MANAGER: NRG HPV mRNA E6/E7, SUREPATH VIAL Not Detected NOT DETECTED REVIEW OPTICAL LABORATORY MANAGER: NRG COMMENT NRG Encounters ACCT No. Visit Date/Time Discharge Status Pt. Type Provider Facility Loc./Unit Complaint [id number] 05/22/2019 15:40:00 05/22/2019 23:59:5 9 CLS Outpatient TARIQ FOSTER [facility] [id number] 03/29/2019 10:00:00 Document Registration [id number] 03/23/2019 12:45:00 Document Registration [id number] 02/07/2019 14:00:00 Document Registration [id number] 01/27/2019 08:15:00 Document Registration [id number] 09/05/2018 13:20:00 Document Registration [id number] 06/23/2018 09:30:00 Document Registration [id number] 05/10/2018 09:20:00 Document Registration [id number] 05/30/2019 13:00:00 23:59:59 CLS Preadmit HILTON ABARCA DO [facility] ENDO FAMILY HX COLON CA [id number] 05/23/2019 05:40:00 14:19:00 DIS Outpatient HILTON ABARCA DO [facility] PREOP COLONOSCOPY [id number] 03/24/2019 20:20:00 23:00:00 DIS Emergency JESENIA DOBBS MD [facility] ER FS FELL/HIP,KNEE,LOWER PADILLA K PAIN [id number] 03/17/2019 14:29:00 21:55:00 DIS Emergency JESENIA DOBBS MD [facility] ER FS DRUG INDUCED PSYCHOSIS [id number] 03/10/2019 10:18:00 14:19:00 DIS Emergency PRECIOUS GARCIA MD [facility] ER FS AMS [id number] 03/08/2019 16:25:00 19:52:00 DIS Emergency CHLOE SHAFER MD [facility] ER FS ALTERED MENTAL STATUS [id number] 02/08/2019 16:31:00 17:00:00 DIS Emergency JERRI DAWKINS MD [facility] ER FS DENTAL PAIN/SWELLING [id number] 01/28/2019 17:11:00 17:43:00 DIS Emergency MILDRED HAYES, TERRA W [facility] ER FS DENTAL PAIN [id number] 01/01/2019 17:00:00 18:30:00 DIS Emergency BENNY HAYES, KENNA Cunningham [facility] ER FS NECK/FACE PAIN [id number] 12/17/2018 21:58:00 22:50:00 DIS Emergency DILIA HAYES, JESENIA Mitchell [facility] ER FS PHYSICAL ALTERCATION [id number] 10/04/2018 12:56:00 15:40:00 DIS Emergency DENISE NAZARIO, JAMILA Dillon [facility] ER FS FALL; BACK/HIP PAIN; BI L LEG SWELLING [id number] 06/18/2018 13:36:00 16:00:00 DIS Emergency LIT HAYES, MADDI Lloyd [facility] ER FS LOWER BACK/HIP PAIN [id number] 05/10/2018 08:02:00 08:02:00 CAN Preadmit DWAYNE FOSTER [facility] LAB FS B18.2 [id number] 05/10/2018 07:39:00 07:39:00 CAN Preadmit RAFFAELE HUI MD [facility] LAB FS I10
--- NOTE | 2019-06-11 20:49 | ED Lower Extremity ---
General Chief Complaint: Lower Extremity Stated Complaint: RT ANKLE INJURY Nursing Triage Note: Patient states that her dog chain got wrapped around her right ankle and she fell. 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 Patient tried ice at home. There is a small area of swelling, bruising and a small abrasion on the anterior surface of the right ankle. Nursing Sepsis Screen: No Definite Risk Source: patient Exam Limitations: no limitations History of Present Illness Date Seen by Provider: Jun 11, 2019 Time Seen by Provider: 20:21 Initial Comments 3-year-old female presents to the emergency room on her own accord after falling down in her home. Patient reports that her dog had a dog chain that was around her ankle on the dog bolted pulling her down to the ground. Patient has a brasions on her right ankle with induration and 3 areas in the right ankle. She however is able to weight-bear. She walks with a limp. Patient does have small abrasion on her right knee but denies any other injuries she states that she did not injure her head or neck and no loss of consciousness. Patient has given informed consent for diagnostic and therapeutic services. 3 views of the right ankle have been ordered and done. This reports her tetanus is up-to-date. Onset: just prior to arrival Pain/Injury Location: right ankle (with abrasions and induration to the anterior surface of the right ankle) Method of Injury: fell (after having her right ankle caught up in the dog's chain and the dog bolted) Modifying Factors: Improves With Movement Allergies and Home Medications Allergies Coded Allergies: Sulfa (Sulfonamide Antibiotics) (Verified Allergy, Mild, RASH, 05/23/19) erythromycin base (Verified Allergy, Mild, HIVES, 05/23/19) tetracycline (Verified Allergy, Mild, RASH, 05/23/19) Home Medications Atorvastatin Calcium 20 Mg Tablet, 20 MG PO DAILY, (Reported) Butalb/Acetaminophen/Caffeine 1 Each Capsule, 1 EACH PO PRN, (Reported) Carvedilol 25 Mg Tab, 25 MG PO BID, (Reported) Dapagliflozin Propanediol 5 Mg Tablet, 5 MG PO DAILY, (Reported) Diclofenac Epolamine 1 Each Patch.td12, 2 EACH TD DAILY, (Reported) Diclofenac Sodium 50 Mg Tablet.dr, 50 MG PO BID Prescribed by: JERRI DAWKINS on 02/08/19 1650 Diphenhydramine HCl 25 Mg Capsule, 25 MG PO PRN, (Reported) Exenatide Microspheres 2 Mg/0.65 Ml Pen.injctr, 2 MG SQ WEEK, (Reported) Gabapentin 400 Mg Capsule, 400 MG PO TID, (Reported) Hydrocodone/Acetaminophen 1 Each Tablet, 1 TAB PO BID PRN for PAIN-MODERATE (5- 7), (Reported) Ibuprofen 800 Mg Tablet, 800 MG PO Q8H PRN for PAIN Prescribed by: TERRA LEVY on 01/28/19 7032 Lamotrigine 25 Mg Tablet, 25 MG PO HS, (Reported) Lisinopril/Hydrochlorothiazide 1 Each Tablet, 1 EACH PO DAILY, (Reported) Metformin HCl 500 Mg Tablet, 1,000 MG PO BID, (Reported) Prazosin HCl 1 Mg Capsule, 3 MG PO HS, (Reported) Quetiapine Fumarate 400 Mg Tablet, 400 MG PO HS, (Reported) Quetiapine Fumarate 100 Mg Tablet, 100 MG PO BID, (Reported) Patient Home Medication List Home Medication List Reviewed: Yes Review of Systems Constitutional: weakness (with right ankle pain) EENTM: see HPI (or injuries to the head or neck) Respiratory: no symptoms reported (patient smokes but does not have any change secondary to the fall) Cardiovascular: no symptoms reported Gastrointestinal: no symptoms reported Genitourinary: no symptoms reported Musculoskeletal: joint pain (right ankle secondary to dog chain injury) Skin: other (abrasions with induration on the anterior surface of the right ankle also small abrasion 3 cm x 3 cm on the right knee no other skin lesions identified no other open lesions) Psychiatric/Neurological: Anxiety Past Nffmpnu-Kuoqpf-Yioqez Hx Patient Social History Alcohol Use: Denies Use Recreational Drug Use: No Drug of Choice: Past hx Meth, THC, daughters report 03/10/19 possible flacca use Smoking Status: Current Everyday Smoker Type Used: Cigarettes 2nd Hand Smoke Exposure: No Recent Foreign Travel: No Contact w/Someone Who Travel: No Recent Infectious Disease Expo: No Recent Hopitalizations: No Physical Abuse: No Sexual Abuse: No Mistreated: No Fear: No Immunizations Up To Date Date of Pneumonia Vaccine: Dec 21, 2016 Seasonal Allergies Seasonal Allergies: Yes Past Medical History Surgeries: Yes (LAMINECTOMY) Orthopedic Respiratory: Yes (MILD) COPD Cardiac: Yes Hypertension Neurological: Yes Headaches /Migraines, Neuropathy Sexually Transmitted Disease: No HIV/AIDS: No Genitourinary: No Gastrointestinal: Yes (Hep C) Gastroesophageal Reflux, Chronic Constipation, Hepatitis Musculoskeletal: Yes Rheumatoid Arthritis, Back Injury, Chronic Back Pain Endocrine: Yes Diabetes, Non-Insulin dep HEENT: No (GLASSES) Loss of Vision: Denies Hearing Impairment: Denies Cancer: No Psychosocial: Yes (Major depressive disorder) Anxiety, Bipolar Integumentary: No Blood Disorders: No Adverse Reaction/Blood Tranf: No (N/A) Family Medical History History obtained from records due to altered mental status and underlying condition. Physical Exam Vital Signs Vital Signs - First Documented 06/11/19 20:25 Temp 36.0 Pulse 109 Resp 20 B/P (MAP) 134/75 (94) Pulse Ox 100 O2 Delivery Room Air Capillary Refill : Less Than 3 Seconds Height, Weight, BMI Height: 5'4.00" Weight: 190lbs. oz. 86.859164ps; 32.00 BMI Method:Stated General Appearance: WD/WN, moderate distress (pain in the right ankle. Patient is able to weight-bear) HEENT: PERRL/EOMI, normal ENT inspection, TMs normal, pharynx normal, other (poor dental care) Neck: non-tender, full range of motion, supple, normal inspection (A she denies any head or neck injuries no loss of consciousness) Cardiovascular: regular rate, rhythm, no edema, no gallop, no JVD, no murmur Respiratory: chest non-tender, lungs clear, normal breath sounds, no respiratory distress, no accessory muscle use Gastrointestinal: normal bowel sounds, non tender, soft, no organomegaly, no pulsatile mass Back: normal inspection, no CVA tenderness Hips: bilateral hip non-tender, bilateral hip normal inspection, bilateral hip normal range of motion, bilateral hip no evidence of injury Legs: bilateral leg non-tender, bilateral leg normal inspection, bilateral leg normal range of motion, bilateral leg no evidence of injury Knees: left knee non-tender, left knee normal inspection, left knee normal range of motion, left knee no evidence of injury; right knee other (abrasion to the right knee no open skin lesion though) Ankles: right ankle abrasions/lacerations (right ankle abrasions no lacerations), right ankle bone tenderness (anterior ankle pain and duration no deformities), right ankle pain, right ankle soft tissue tenderness (anterior right ankle), right ankle swelling (anterior right ankle) Feet: bilateral foot non-tender, bilateral foot normal inspection, bilateral foot normal range of motion, bilateral foot no evidence of injury Reflexes: 2+ knee (R), 2+ knee (L) Neurologic/Tendon: normal sensation, normal motor functions, normal tendon functions, responds to pain, no evidence tendon injury 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 Decision time for Depature: 21:32 Referrals: CESIA BEAR MD (PCP) Primary Care Physician TARIQ FOSTER APRN (Family) Primary Care Physician Patient Instructions: Foot Sprain (DC), Sprain (DC) Add. Discharge Instructions: 53-year-old female evaluated for right ankle pain secondary to a dog chain wrapping around it and dog bolting causing the patient to fall down. She has small areas of induration and abrasions on her anterior ankle and her anterior right knee. Patient will follow-up with Ms. Montano and Dr. bear for continued care. Neosporin ointment and Patrick wrap has been given. Agents immunizations are up-to-date. Patient will follow-up and continue ice care and practice fall prevention. All discharge instructions reviewed with patient and/or family. Voiced understanding. Copy Copies To 1: [facility] [place]; CESIA BEAR MD, ANTHONY H DO Jun 11, 2019 20:49
--- NOTE | 2019-06-11 21:22 | Diagnostic Imaging Report ---
Indication: Right ankle pain 3 views of the right ankle show no fracture, dislocation or other acute abnormalities. IMPRESSION: Negative right ankle Dictated by: Dictated on workstation # [id number]
[2019-06-11 21:37] VITALS: BP 134/75
== END 2019-06-11 21:37 | disposition home or self-care (01) ==
LOC: EDUNIT# 20:20 → ER FS 20:24
DX: S90.01XA Contusion of right ankle, initial encounter (principal); S80.211A Abrasion, right knee, initial encounter; W01.0XXA Fall on same level from slipping, tripping and stumbling without subsequent striking against object, initial encounter; F17.210 Nicotine dependence, cigarettes, uncomplicated; Z88.2 Allergy status to sulfonamides; K21.9 Gastro-esophageal reflux disease without esophagitis; K59.09 Other constipation; B19.20 Unspecified viral hepatitis C without hepatic coma; I10 Essential (primary) hypertension; J44.9 Chronic obstructive pulmonary disease, unspecified; E11.40 Type 2 diabetes mellitus with diabetic neuropathy, unspecified; F41.9 Anxiety disorder, unspecified; F31.9 Bipolar disorder, unspecified; S93.401A Sprain of unspecified ligament of right ankle, initial encounter; Z79.899 Other long term (current) drug therapy
CPT/HCPCS: 73610

== ENCOUNTER 2019-06-26 13:36 | Emergency (ER) | payer MEDICAID ==
[~2019-06-26] VITALS: Ht 162.2 cm; Wt 79.8 kg
--- OUTSIDE RECORDS SUMMARY | 2019-06-26 13:44 | XMS REPORT | Continuity of Care Document ---
Author Organization Unknown Address Unknown Phone Unavailable Allergies Active Description Code Type Severity Reaction Onset Reported/Identified Relationship to Patient Clinical Status Yes No Known Drug Allergies [id number] Drug Allergy Unknown N/A 06/18/2018 Yes erythromycin base [id number] Drug Allergy Unknown N/A 10/04/2018 Yes Sulfa (Sulfonamide Antibiotics) [id number] 0491 Drug Allergy Unknown N/A 019 Yes tetracycline [id number] Drug Allergy Unknown N/A 10/04/2018 Yes erythromycin base [id number] Drug Allergy Mild HIVES 05/23/2019 Yes Sulfa (Sulfonamide Antibiotics) O90159 0491 Drug Allergy Mild RASH 0 Yes tetracycline [id number] Drug Allergy Mild RASH 05/23/2019 Medications There [...] CHRONIC OBSTRUCTIVE PULMONARY DISEASE, U 12/22/2018 JESENIA DBOBS MD, Ot R40.2142 COMA SCALE, EYES OPEN, [...] KENNA ZAPATA MD Ot Z79. 84 SUPERVISOR AGENCY APPOINTMENTS (CURRENT) USE OF ORAL HYPOGLYC 01/01/2019 KENNA [...] F31. 9 BIPOLAR DISORDER, UNSPECIFIED 01/31/2019 TERRA LEVY MD Ot I10 ESSENTIAL (PRIMARY) HYPERTENSION 01/31/2019 [...] F31. 9 BIPOLAR DISORDER, UNSPECIFIED 02/08/2019 JERRI DAWKINS MD Ot I10 ESSENTIAL (PRIMARY) HYPERTENSION 02/08/2019 [...] Ot F15.10 OTHER STIMULANT ABUSE, UNCOMPLICATED 03/08/2019 CHLOE SHAFER MD Ot F17.210 NICOTINE DEPENDENCE, [...] MD Ot F41.9 ANXIETY DISORDER, UNSPECIFIED 03/14/2019 PRECIOUS GARCIA MD Ot I10 ESSENTIAL (PRIMARY) [...] MD Ot F41.9 ANXIETY DISORDER, UNSPECIFIED 03/22/2019 JESENIA DOBBS MD Ot I10 ESSENTIAL (PRIMARY) [...] MD Ot M54.5 LOW BACK PAIN 03/29/2019 DILIA HAYES, JESENIA Mitchell Ot M79.6 05 PAIN IN LEFT LEG 03/29/2019 DILIA HAYES, JESENIA Mitchell Ot W19.XXXA UNSPECIFIED FALL, INITIAL ENCOUNTER 05/23/2019 HILTON ABARCA DO Ot Z01.818 ENCOUNTER FOR OTHER PREPROCEDURAL EXAMIN [facility]/13[facility] UNSPECIFIED VIRAL HEPATITIS C WITHOUT HE 06/13/2019 [facility] E11.40 TYPE 2 DIABETES MELLITUS WITH DIABETIC N 06/13/2019 [facility] Ot F17.210 NICOTINE DEPENDENCE, CIGARETTES, UNCOMPL 06/13/2019 [facility] F31.9 BIPOLAR DISORDER, UNSPECIFIED 06/13/2019 [facility] F41.9 ANXIETY DISORDER, UNSPECIFIED 06/13/2019 [facility] I1 0 ESSENTIAL (PRIMARY) HYPERTENSION 06/13/2019 [facility] Ot J44.9 CHRONIC OBSTRUCTIVE PULMONARY DISEASE, U 06/13/2019 [facility] K21.9 GASTRO-ESOPHAGEAL REFLUX DISEASE WITHOUT 06/13/2019 [facility] Ot K59.09 OTHER CONSTIPATION 06/13/2019 [facility] Ot S80.211A ABRASION, RIGHT KNEE, INITIAL ENCOUNTER 06/13/2019 [facility] Ot S90.01XA CONTUSION OF RIGHT ANKLE, INITIAL ENCOUN 06/13/2019 [facility] Ot S93.401A SPRAIN OF UNSPECIFIED LIGAMENT OF RIGHT 06/13/2019 [facility] Ot S99.911A UNSPECIFIED INJURY OF RIGHT ANKLE, INITI 06/13/2019 [facility], ZAIN Russell Ot W01.0XXA FALL SAME LEV FROM SLIP/TRIP W/O STRIKE 06/13/2019 [facility], ZAIN Russell Ot Z79.899 OTHER LONGTERM (CURRENT) DRUG THERAPY 06/13/2019 [facility] Z88.2 ALLERGY STATUS TO SULFONAMIDES STATUS Procedures There is no data. Results Test [...] 3-70 ALT 70 U/L 6-29 REFERENCE ID [id number] NRG FOOTNOTE SEE NOTE NRG MICROALBUMIN/CREATININE RATIO, URINE - 0 06/23/18 10:45 CREATININE, RANDOM URINE 91 mg/dL 20-27 5 MICROALBUMIN 0.4 mg/dL See Note: MICROALBUMIN/CREATININE RATIO, RANDOM URINE 4 mcg/ mg creat <30 CMP - 09/05/18 14:26 GLUCOSE 126 mg/dL 65-99 UREA NITROGEN (BUN) 12 mg/dL 7-25 CREATININE 0.83 mg/dL 0.50-1.05 eGFR NON-AFR. INDONESIAN 82 mL/min/1.73m2 > OR = 60 eGFR [...] culture - 10/04/18 13:25 Bacterial urine culture [id number] NRG COLONY COUNT >100,000/ML NRG FTX;REPORTABLE SUSCEPTIBILITY [...] culture - 03/08/19 16:55 Bacterial urine culture [id number] NRG COLONY COUNT >100,000/ML NRG FTX;REPORTABLE SUSCEPTIBILITY REPORTED 03/11 10:05 NRG FREE TEXT ENTRY 2 PRELIM RAPID ID AT [facility] NRG Dirithromycin susceptibility test by dis k [...] plasma alkaline phosphatase magali surement (enzymatic activity/volume) 99 U/L 40-136 Serum [...] Gabapentin NRG COMMENT NRG Prescribed Drug 3 Eugene(TM) NRG Gabapentin >538654 ng/mL <1000 medMATCH Gabapentin CONSISTENT NRG SUREPATH PAP AND HPV mRNA E6/E7 - 11:34 CLINICAL INFORMATION: NRG LMP: 3-4 YEARS NRG PREV. PAP: 8 YEARS NRG PREV. BX: NO NRG SOURCE: Cervix NRG STATEMENT OF ADEQUACY: NRG INTERPRETATION/RESULT: NRG PERFORMANCE MANAGEMENT CONSULTANT: NRG HPV mRNA E6/E7, SUREPATH VIAL Not Detected NOT DETECTED REVIEW PERFORMANCE MANAGEMENT CONSULTANT: NRG COMMENT NRG Encounters ACCT No. Visit Date/Time Discharge Status Pt. Type Provider Facility Loc./Unit Complaint [id number] 05/22/2019 15:40:00 05/22/2019 23:59:5 9 [facility] [id number] 03/29/2019 10:00:00 Document Registration [id number] 03/23/2019 12:45:00 Document Registration [id number] 02/07/2019 14:00:00 Document Registration [id number] 01/27/2019 08:15:00 Document Registration [id number] 09/05/2018 13:20:00 Document Registration [id number] 06/23/2018 09:30:00 Document Registration [id number] 05/10/2018 09:20:00 Document Registration [id number] 06/11/2019 20:24:00 21:37:00 DIS Outpatient ZAIN MURILLO DO Via [facility] ER FS RT ANKLE INJURY [id number] 05/30/2019 13:00:00 23:59:59 CLS Preadmit ABARCA HILTON NAZARIO [facility] ENDO FAMILY HX COLON CA [id number] 05/23/2019 05:40:00 14:19:00 DIS Outpatient HILTON ABARCA DO Via [facility] PREOP COLONOSCOPY [id number] 03/24/2019 20:20:00 23:00:00 DIS Emergency JESENIA DOBBS MD [facility] ER FS FELL/HIP,KNEE,LOWER PADILLA K PAIN [id number] 03/17/2019 14:29:00 21:55:00 DIS Emergency JESENIA DOBBS MD [facility] ER FS DRUG INDUCED PSYCHOSIS [id number] 03/10/2019 10:18:00 14:19:00 DIS Emergency PRECIOUS GARCIA MD [facility] ER FS AMS [id number] 03/08/2019 16:25:00 19:52:00 DIS Emergency SONI HAYES, CHLOE Lorenzo [facility] ER FS ALTERED MENTAL STATUS [id number] 02/08/2019 16:31:00 17:00:00 DIS Emergency JERRI DAWKINS MD [facility] ER FS DENTAL PAIN/SWELLING [id number] 01/28/2019 17:11:00 17:43:00 DIS Emergency TERRA LEVY MD [facility] ER FS DENTAL PAIN [id number] 01/01/2019 17:00:00 18:30:00 DIS Emergency BENNY HAYES, KENNA Cunningham [facility] ER FS NECK/FACE PAIN [id number] 12/17/2018 21:58:00 22:50:00 DIS Emergency DILIA HAYES, JESENIA Mitchell [facility] ER FS PHYSICAL ALTERCATION [id number] 10/04/2018 12:56:00 15:40:00 DIS Emergency JAMILA WALKER DO [facility] ER FS FALL; BACK/HIP PAIN; BI L LEG SWELLING [id number] 06/18/2018 13:36:00 16:00:00 DIS Emergency LIT HAYES, MADDI Lloyd [facility] ER FS LOWER BACK/HIP PAIN [id number] 05/10/2018 08:02:00 08:02:00 CAN Preadmit DWAYNE FOSTER [facility] LAB FS B18.2 [id number] 05/10/2018 07:39:00 07:39:00 CAN Preadmit RAFFAELE HUI MD Via [facility] LAB FS I10
[2019-06-26] MEDS ORDERED: DICL75TA2 PO (13:51)
--- NOTE | 2019-06-26 13:52 | ED Back Pain ---
General Chief Complaint: Back Problems Stated Complaint: IRVING HIP/BACK PAIN Source of Information: Patient, Old Records, RN Notes Reviewed History of Present Illness Date Seen by Provider: Jun 26, 2019 Time Seen by Provider: 13:40 Initial Comments This patient is a 53-year-old female presents to the emergency department with chronic back pain. Patient states she does take chronic pain medications and on a pain contract at home takes hydrocodone regularly. Last couple days of increas ing spasm in her back. Patient says unable to follow up with her PCP. Location: Lumbar Spine, Paraspinous Muscles Timing/Duration: 3-4 Days Severity: Moderate Pain/Injury Location: Back Modifying Factors: Worse With Cold Therapy, Worse With Immobilization, Worse With Jarring; Improves With Movement; Worse With Pain Medication, Worse With Rest, Worse With Other Associated Symptoms: No denies symptoms, No muscle spasms, No fever, No weakness, No numbness in legs/feet, No tingling in legs/feet, No sensory/motor loss, No lower back pain, No loss of bladder control, No loss of bowel control, No other Allergies and Home Medications Allergies Coded Allergies: Sulfa (Sulfonamide Antibiotics) (Verified Allergy, Mild, RASH, 05/23/19) erythromycin base (Verified Allergy, Mild, HIVES, 05/23/19) tetracycline (Verified Allergy, Mild, RASH, 05/23/19) Home Medications Atorvastatin Calcium 20 Mg Tablet, 20 MG PO DAILY, (Reported) Butalb/Acetaminophen/Caffeine 1 Each Capsule, 1 EACH PO PRN, (Reported) Carvedilol 25 Mg Tab, 25 MG PO BID, (Reported) Dapagliflozin Propanediol 5 Mg Tablet, 5 MG PO DAILY, (Reported) Diclofenac Epolamine 1 Each Patch.td12, 2 EACH TD DAILY, (Reported) Diclofenac Sodium 50 Mg Tablet.dr, 50 MG PO BID Prescribed by: JERRI DAWKINS on 02/08/19 1650 Diphenhydramine HCl 25 Mg Capsule, 25 MG PO PRN, (Reported) Exenatide Microspheres 2 Mg/0.65 Ml Pen.injctr, 2 MG SQ WEEK, (Reported) Gabapentin 400 Mg Capsule, 400 MG PO TID, (Reported) Hydrocodone/Acetaminophen 1 Each Tablet, 1 TAB PO BID PRN for PAIN-MODERATE (5- 7), (Reported) Ibuprofen 800 Mg Tablet, 800 MG PO Q8H PRN for PAIN Prescribed by: TERRA LEVY on 01/28/19 1733 Lamotrigine 25 Mg Tablet, 25 MG PO HS, (Reported) Lisinopril/Hydrochlorothiazide 1 Each Tablet, 1 EACH PO DAILY, (Reported) Metformin HCl 500 Mg Tablet, 1,000 MG PO BID, (Reported) Prazosin HCl 1 Mg Capsule, 3 MG PO HS, (Reported) Quetiapine Fumarate 400 Mg Tablet, 400 MG PO HS, (Reported) Quetiapine Fumarate 100 Mg Tablet, 100 MG PO BID, (Reported) Patient Home Medication List Home Medication List Reviewed: Yes Review of Systems Constitutional: see HPI EENTM: No see HPI, No no symptoms reported, No ear discharge, No hearing loss, No ear pain, No blurred vision, No double vision, No eye pain, No tearing, No vision loss, No dental problems, No hoarseness, No mouth pain, No mouth swelling, No epistaxis, No nose congestion, No nose pain, No throat pain, No throat swelling, No other Respiratory: No no symptoms reported, No see HPI, No cough, No dyspnea on exertion, No hemoptysis, No orthopnea, No phlegm, No short of breath, No stridor, No wheezing, No other Cardiovascular: No no symptoms reported, No see HPI, No chest pain, No edema, No Hx of Intervention, No palpitations, No syncope, No vascular heart diseas, No other Gastrointestinal: No RUQ, No LUQ, No RLQ, No LLQ, No no symptoms reported, No see HPI, No abdominal pain, No constipation, No diarrhea, No dysphagia, No hematemesis, No heartburn, No jaundice, No loss of appetite, No melena, No nausea, No vomiting, No other Musculoskeletal: No no symptoms reported; see HPI, back pain; No gout, No joint pain, No joint swelling, No muscle pain, No muscle stiffness, No muscle cramps, No muscle twitching, No muscle weakness, No neck pain, No other All Other Systems Reviewed Negative Unless Noted: Yes Past Qrllesw-Bizdhb-Umvttj Hx Patient Social History Alcohol Use: Denies Use Recreational Drug Use: Yes Drug of Choice: Past hx Meth, THC, daughters report 03/10/19 possible flacca use Type Used: Cigarettes 2nd Hand Smoke Exposure: No Recent Foreign Travel: No Contact w/Someone Who Travel: No Recent Hopitalizations: No Immunizations Up To Date Date of Pneumonia Vaccine: Dec 21, 2016 Seasonal Allergies Seasonal Allergies: Yes Past Medical History Surgeries: Yes (LAMINECTOMY) Orthopedic Respiratory: Yes (MILD) COPD Cardiac: Yes Hypertension Neurological: Yes Headaches /Migraines, Neuropathy Sexually Transmitted Disease: No HIV/AIDS: No Genitourinary: No Gastrointestinal: Yes (Hep C) Gastroesophageal Reflux, Chronic Constipation, Hepatitis Musculoskeletal: Yes Rheumatoid Arthritis, Back Injury, Chronic Back Pain Endocrine: Yes Diabetes, Non-Insulin dep HEENT: No (GLASSES) Loss of Vision: Denies Hearing Impairment: Denies Cancer: No Psychosocial: Yes (Major depressive disorder) Anxiety, Bipolar Integumentary: No Blood Disorders: No Adverse Reaction/Blood Tranf: No (N/A) Family Medical History History obtained from records due to altered mental status and underlying condition. Physical Exam Vital Signs Capillary Refill : Height, Weight, BMI Height: 5'4.00" Weight: 190lbs. oz. 86.971400xj; 32.00 BMI Method:Stated General Appearance: No Apparent Distress, WD/WN HEENT: PERRL/EOMI, TMs Normal, Normal ENT Inspection, Pharynx Normal Neck: Full Range of Motion, Normal Inspection, Non Tender, Supple Cardiovascular: Regular Rate, Rhythm, No Edema, No Gallop, No JVD, No Murmur, Normal Peripheral Pulses Respiratory: Chest Non Tender, Lungs Clear, Normal Breath Sounds, No Accessory Muscle Use, No Respiratory Distress, Accessory Muscle Use Gastrointestinal: Normal Bowel Sounds, No Organomegaly, No Pulsatile Mass, Non Tender, Soft Back: Decreased Range of Motion, Muscle Spasm Progress/Results/Core Measures Results/Orders My Orders Orders - MAGDALENA ESTRADA MD Orphenadrine Injection (Norflex Injectio (06/26/19 14:00) Progress Progress Note : Time: 13:50 Progress Note Continue with all your home medications for chronic pain. He will receive a Norflex shot prior to discharge. Prescription for diclofenac as written. Alternate heat and ice and use back stretching exercises as instructed. Follow- up with your PCP in 2-3 days. Departure Impression Primary Impression: Chronic back pain Additional Impression: Back muscle spasm Disposition: 01 HOME, SELF-CARE Condition: Stable Departure-Patient Inst. Decision time for Depature: 13:51 Referrals: [facility] (PCP) Primary Care Physician TARIQ FOSTER APRN (Family) Primary Care Physician Patient Instructions: MANAGING YOUR CHRONIC PAIN, Muscle Spasms (DC), Low Back Pain (DC) Add. Discharge Instructions: Continue with all your home medications for chronic pain. He will receive a Norflex shot prior to discharge. Prescription for diclofenac as written. Alternate heat and ice and use back stretching exercises as instructed. Follow- up with your PCP in 2-3 days. All discharge instructions reviewed with patient and/or family. Voiced understanding. Scripts Diclofenac Sodium (Diclofenac Sodium) 75 Mg Tablet. 75 MG PO BID for 10 Days, #20 TAB 0 Refills Prov: MAGDALENA ESTRADA MD 06/26/19 MAGDALENA ESTARDA MD Jun 26, 2019 13:51
[2019-06-26] MEDS ORDERED: ORPHENADRINE 60 MG/2 ML (NORFLEX) AMP IM ONE (14:00)
[2019-06-26] MEDS ORDERED: DEXAMETHASONE 10 MG/ML (DECADRON) 1 ML VIAL IM ONE (14:00)
--- NOTE | 2019-06-26 14:05 | NUR ---
Pt requested both IM shots be in left glute.
[2019-06-26 14:10] VITALS: BP 155/82
== END 2019-06-26 14:10 | disposition home or self-care (01) ==
LOC: EDUNIT# 13:36 → ER FS 13:38
DX: M54.9 Dorsalgia, unspecified (principal); M62.830 Muscle spasm of back; G89.29 Other chronic pain; J44.9 Chronic obstructive pulmonary disease, unspecified; I10 Essential (primary) hypertension; E11.40 Type 2 diabetes mellitus with diabetic neuropathy, unspecified; B19.20 Unspecified viral hepatitis C without hepatic coma; K59.09 Other constipation; M06.9 Rheumatoid arthritis, unspecified; F41.9 Anxiety disorder, unspecified; F31.9 Bipolar disorder, unspecified; K21.9 Gastro-esophageal reflux disease without esophagitis; Z79.899 Other long term (current) drug therapy; Z79.84 Long term (current) use of oral hypoglycemic drugs; Z88.2 Allergy status to sulfonamides; Z88.1 Allergy status to other antibiotic agents
CPT/HCPCS: 99284

== ENCOUNTER 2019-07-19 11:51 | Emergency (ER) | payer MEDICAID ==
[~2019-07-19] VITALS: Ht 167.7 cm; Wt 81.8 kg
[2019-07-19 12:15] VITALS: BP 122/78
--- NOTE | 2019-07-19 12:30 | ED General ---
General Stated Complaint: HIP PAIN BILAT Source of Information: Patient History of Present Illness Date Seen by Provider: July 19, 2019 Time Seen by Provider: 12:15 Initial Comments This patient is a 53-year-old female presents to the emergency department complaining of chronic hip pain. Patient states she's had this sensation for a long time ever since having back surgery 2 years ago. Patient states she does take chronic pain medication hydrocodone states that she's not enough to take care of for pain. Patient did not make an attempt to see her primary care physician today. Patient has no new acute complaints today. I did discuss at length with patient about options. I did offer patient nonsteroidal pain medication but the patient declines. Nursing staff will try to attempt to call patient's PCP to schedule an appointment time to where she go see them today to adjust her chronic pain medications. Patient be discharged home. Timing/Duration: Other Associated Systoms: No Denies Symptoms, No Chest Pain, No Cough, No Diaphoresis, No Fever/Chills, No Headaches, No Loss of Appetite, No Malaise, No Nausea/Vomiting, No Rash, No Seizure, No Shortness of Air, No Syncope, No Weakness, No Other Allergies and Home Medications Allergies Coded Allergies: Sulfa (Sulfonamide Antibiotics) (Verified Allergy, Mild, RASH, 05/23/19) erythromycin base (Verified Allergy, Mild, HIVES, 05/23/19) tetracycline (Verified Allergy, Mild, RASH, 05/23/19) Home Medications Atorvastatin Calcium 20 Mg Tablet, 20 MG PO DAILY, (Reported) Butalb/Acetaminophen/Caffeine 1 Each Capsule, 1 EACH PO PRN, (Reported) Carvedilol 25 Mg Tab, 25 MG PO BID, (Reported) Dapagliflozin Propanediol 5 Mg Tablet, 5 MG PO DAILY, (Reported) Diclofenac Epolamine 1 Each Patch.td12, 2 EACH TD DAILY, (Reported) Diclofenac Sodium 50 Mg Tablet.dr, 50 MG PO BID Prescribed by: JERRI DAWKINS on 02/08/19 1650 Diclofenac Sodium 75 Mg Tablet.dr, 75 MG PO BID Prescribed by: MAGDALENA ESTRADA on 06/26/19 1351 Diphenhydramine HCl 25 Mg Capsule, 25 MG PO PRN, (Reported) Exenatide Microspheres 2 Mg/0.65 Ml Pen.injctr, 2 MG SQ WEEK, (Reported) Gabapentin 400 Mg Capsule, 400 MG PO TID, (Reported) Hydrocodone/Acetaminophen 1 Each Tablet, 1 TAB PO BID PRN for PAIN-MODERATE (5- 7), (Reported) Ibuprofen 800 Mg Tablet, 800 MG PO Q8H PRN for PAIN Prescribed by: TERRA LEVY on 01/28/19 5645 Lamotrigine 25 Mg Tablet, 25 MG PO HS, (Reported) Lisinopril/Hydrochlorothiazide 1 Each Tablet, 1 EACH PO DAILY, (Reported) Metformin HCl 500 Mg Tablet, 1,000 MG PO BID, (Reported) Prazosin HCl 1 Mg Capsule, 3 MG PO HS, (Reported) Quetiapine Fumarate 400 Mg Tablet, 400 MG PO HS, (Reported) Quetiapine Fumarate 100 Mg Tablet, 100 MG PO BID, (Reported) Patient Home Medication List Home Medication List Reviewed: Yes Review of Systems Review of Systems Constitutional: No no symptoms reported; see HPI; No chills, No diaphoresis, No dizziness, No fever, No malaise, No weakness, No weight gain, No weight loss, No other EENTM: No see HPI, No no symptoms reported, No ear discharge, No hearing loss, No ear pain, No blurred vision, No double vision, No eye pain, No tearing, No vision loss, No dental problems, No hoarseness, No mouth pain, No mouth swelling, No epistaxis, No nose congestion, No nose pain, No throat pain, No throat swelling, No other Respiratory: No no symptoms reported, No see HPI, No cough, No dyspnea on exertion, No hemoptysis, No orthopnea, No phlegm, No short of breath, No stridor, No wheezing, No other Cardiovascular: No no symptoms reported, No see HPI, No chest pain, No edema, No Hx of Intervention, No palpitations, No syncope, No vascular heart diseas, No other Gastrointestinal: No RUQ, No LUQ, No RLQ, No LLQ, No no symptoms reported, No see HPI, No abdominal pain, No constipation, No diarrhea, No dysphagia, No hematemesis, No heartburn, No jaundice, No loss of appetite, No melena, No nausea, No vomiting, No other Genitourinary: No no symptoms reported, No see HPI, No decreased output, No discharge, No dysuria, No frequency, No hematuria, No hesitancy, No incontinence, No nocturia, No pain, No other Musculoskeletal: No no symptoms reported, No see HPI; back pain; No gout, No joint pain, No joint swelling, No muscle pain, No muscle stiffness, No muscle cramps, No muscle twitching, No muscle weakness, No neck pain, No other All Other Systems Reviewed Negative Unless Noted: Yes Past Fqlqadw-Ygouih-Qwtbdz Hx Patient Social History Drug of Choice: Past hx Meth, THC, daughters report 03/10/19 possible flacca use Type Used: Cigarettes 2nd Hand Smoke Exposure: No Recent Foreign Travel: No Contact w/Someone Who Travel: No Recent Hopitalizations: No Immunizations Up To Date Date of Pneumonia Vaccine: Dec 21, 2016 Seasonal Allergies Seasonal Allergies: Yes Past Medical History Surgeries: Yes (LAMINECTOMY) Orthopedic Respiratory: Yes (MILD) COPD Cardiac: Yes Hypertension Neurological: Yes Headaches /Migraines, Neuropathy Sexually Transmitted Disease: No HIV/AIDS: No Genitourinary: No Gastrointestinal: Yes (Hep C) Gastroesophageal Reflux, Chronic Constipation, Hepatitis Musculoskeletal: Yes Rheumatoid Arthritis, Back Injury, Chronic Back Pain Endocrine: Yes Diabetes, Non-Insulin dep HEENT: No (GLASSES) Loss of Vision: Denies Hearing Impairment: Denies Cancer: No Psychosocial: Yes (Major depressive disorder) Anxiety, Bipolar Integumentary: No Blood Disorders: No Adverse Reaction/Blood Tranf: No (N/A) Family Medical History History obtained from records due to altered mental status and underlying condition. Physical Exam Vital Signs Capillary Refill : Height, Weight, BMI Height: 5'4.00" Weight: 190lbs. oz. 86.695359ap; 30.00 BMI Method:Stated General Appearance: No Apparent Distress, WD/WN HEENT: PERRL/EOMI, TMs Normal, Normal ENT Inspection, Pharynx Normal Neck: Full Range of Motion, Normal Inspection, Non Tender, Supple Respiratory: Chest Non Tender, Lungs Clear, Normal Breath Sounds, No Accessory Muscle Use, No Respiratory Distress Cardiovascular: Regular Rate, Rhythm, No Edema, No Gallop, No JVD, No Murmur, Normal Peripheral Pulses Back: Normal Inspection, No CVA Tenderness, No Vertebral Tenderness Extremity: Normal Capillary Refill, Normal Inspection, Normal Range of Motion, Non Tender, No Calf Tenderness, No Pedal Edema Neurologic/Psychiatric: Alert, Oriented x3, No Motor/Sensory Deficits Skin: Normal Color, Warm/Dry Progress/Results/Core Measures Suspected Sepsis SIRS Temperature: Pulse: Respiratory Rate: Blood Pressure / Mean: Results/Orders Vital Signs/I&O Capillary Refill : Progress Note : Time: 12:28 Progress Note This patient is a 53-year-old female presents to the emergency department complaining of chronic hip pain. Patient states she's had this sensation for a long time ever since having back surgery 2 years ago. Patient states she does take chronic pain medication hydrocodone states that she's not enough to take care of for pain. Patient did not make an attempt to see her primary care physician today. Patient has no new acute complaints today. I did discuss at length with patient about options. I did offer patient nonsteroidal pain medicat ion but the patient declines. Nursing staff will try to attempt to call patient's PCP to schedule an appointment time to where she go see them today to adjust her chronic pain medications. Patient be discharged home. Alternate heat and ice as instructed. Continue all home medications as instructed including her hydrocodone. He must follow-up through primary care physician for any adjustments of her chronic narcotic pain medication. Departure Impression Primary Impression: Chronic pain Disposition: 01 HOME, SELF-CARE Condition: Stable Departure-Patient Inst. Decision time for Depature: 12:29 Referrals: [facility] (PCP) Primary Care Physician TARIQ FOSTER APRN (Family) Primary Care Physician Patient Instructions: Chronic Pain (DC) Add. Discharge Instructions: Alternate heat and ice as instructed. Continue all home medications as instructed including her hydrocodone. He must follow-up through primary care physician for any adjustments of her chronic narcotic pain medication. MAGDALENA ESTRADA MD July 19, 2019 12:29
--- NOTE | 2019-07-19 12:44 | NUR ---
Patient was wheeled in wheelchair to the registration/discharge desk at this time. Pt stated ride was coming.
--- OUTSIDE RECORDS SUMMARY | 2019-07-19 13:17 | XMS REPORT | Continuity of Care Document ---
Author Organization Unknown Address Unknown Phone Unavailable Allergies Active Description Code Type Severity Reaction Onset Reported/Identified Relationship to Patient Clinical Status Yes No Known Drug Allergies [id number] Drug Allergy Unknown N/A 06/18/2018 Yes erythromycin base [id number] Drug Allergy Unknown N/A 10/04/2018 Yes Sulfa (Sulfonamide Antibiotics) [id number] Drug Allergy Unknown N/A 019 Yes tetracycline [id number] Drug Allergy Unknown N/A 10/04/2018 Yes erythromycin base [id number] Drug Allergy Mild HIVES 05/23/2019 Yes Sulfa (Sulfonamide Antibiotics) L14895 0491 Drug Allergy Mild RASH 0 Yes tetracycline [id number] Drug Allergy Mild RASH 05/23/2019 Medications There [...] OF UNSPECIFIED BACK WALL OF TH 12/17/2018 JESEINA DOBBS MD, Ot S29.019A STRAIN OF MUSCLE [...] 01/01/2019 KENNA ZAPATA MD Ot Z79. 84 HAZ TECH (CURRENT) USE OF ORAL HYPOGLYC 01/01/2019 KENNA [...] Ot W19.XXXA UNSPECIFIED FALL, INITIAL ENCOUNTER 05/23/2019 RIMA NAZARIO HILTON Wilma Ot Z01.818 ENCOUNTER FOR OTHER PREPROCEDURAL EXAMIN [facility] UNSPECIFIED VIRAL HEPATITIS C WITHOUT HE 06/13/2019 [facility] E11.40 TYPE 2 DIABETES MELLITUS WITH DIABETIC N 06/13/2019 [facility] F17.210 NICOTINE DEPENDENCE, CIGARETTES, UNCOMPL 06/13/2019 [facility] F31.9 BIPOLAR DISORDER, UNSPECIFIED 06/13/2019 [facility] F41.9 ANXIETY DISORDER, UNSPECIFIED 06/13/2019 [facility] I1 0 ESSENTIAL (PRIMARY) HYPERTENSION 06/13/2019 [facility] J44.9 CHRONIC OBSTRUCTIVE PULMONARY DISEASE, U 06/13/2019 [facility] K21.9 GASTRO-ESOPHAGEAL REFLUX DISEASE WITHOUT 06/13/2019 [facility] K59.09 OTHER CONSTIPATION 06/13/2019 [facility] S80.211A ABRASION, RIGHT KNEE, INITIAL ENCOUNTER 06/13/2019 [facility] S90.01XA CONTUSION OF RIGHT ANKLE, INITIAL ENCOUN 06/13/2019 CHIDI DOZAIN Ot S93.401A SPRAIN OF UNSPECIFIED LIGAMENT OF RIGHT 06/13/2019 [facility] S99.911A UNSPECIFIED INJURY OF RIGHT ANKLE, INITI 06/13/2019 [facility] W01.0XXA FALL SAME LEV FROM SLIP/TRIP W/O STRIKE 06/13/2019 [facility], ZAIN Russell Ot Z79.899 OTHER HALFWAY (CURRENT) DRUG THERAPY 06/13/2019 [facility] Z88.2 ALLERGY STATUS TO SULFONAMIDES STATUS 06/26/2019 NATALIE HAYES, MAGDALENA Mora Ot B19.20 UNSPECIFIED VIRAL HEPATITIS C WITHOUT HE 06/26/2019 MAGDALENA ESTRADA MD, Ot E11.40 TYPE 2 DIABETES MELLITUS WITH DIABETIC N 06/26/2019 MAGDALENA ESTRADA MD, Ot F31.9 BIPOLAR DISORDER, UNSPECIFIED 06/26/2019 MAGDALENA ESTRADA MD, Ot F41.9 ANXIETY DISORDER, UNSPECIFIED 06/26/2019 MAGDALENA ESTRADA MD, Ot G89.29 OTHER CHRONIC PAIN 06/26/2019 MAGDALENA ESTRADA MD, Ot I1 0 ESSENTIAL (PRIMARY) HYPERTENSION 06/26/2019 MAGDALENA ESTRADA MD, Ot J44.9 CHRONIC OBSTRUCTIVE PULMONARY DISEASE, U 06/26/2019 MAGDALENA ESTRADA MD, Ot K21.9 GASTRO-ESOPHAGEAL REFLUX DISEASE WITHOUT 06/26/2019 MAGDALENA ESTRADA MD, Ot K59.09 OTHER CONSTIPATION 06/26/2019 MAGDALENA ESTRADA MD, Ot M06.9 RHEUMATOID ARTHRITIS, UNSPECIFIED 06/26/2019 MAGDALENA ESTRADA MD, Ot M54.9 DORSALGIA, UNSPECIFIED 06/26/2019 MAGDALENA ESTRADA MD, Ot M62.830 MUSCLE SPASM OF BACK 06/26/2019 MAGDALENA ESTRADA MD Ot Z79.84 HAZ TECH (CURRENT) USE OF ORAL HYPOGLYC 06/26/2019 MAGDALENA ESTRADA MD, Ot Z79.899 OTHER HAZ TECH (CURRENT) DRUG THERAPY 06/26/2019 MAGDALENA ESTRADA MD, Ot Z88.1 ALLERGY STATUS TO OTHER ANTIBIOTIC AGENT 06/26/2019 MAGDALENA ESTRADA MD, Ot Z88.2 ALLERGY STATUS TO SULFONAMIDES STATUS 06/27/2019 MAGDALENA ESTRADA MD, Ot B19.20 UNSPECIFIED VIRAL HEPATITIS C WITHOUT HE 06/27/2019 MAGDALENA ESTRADA MD, Ot E11.40 TYPE 2 DIABETES MELLITUS WITH DIABETIC N 06/27/2019 MAGDALENA ESTRADA MD, Ot F31.9 BIPOLAR DISORDER, UNSPECIFIED 06/27/2019 MAGDALENA ESTRADA MD, Ot F41.9 ANXIETY DISORDER, UNSPECIFIED 06/27/2019 MAGDALENA ESTRADA MD, Ot G89.29 OTHER CHRONIC PAIN 06/27/2019 MAGDALENA ESTRADA MD, Ot I1 0 ESSENTIAL (PRIMARY) HYPERTENSION 06/27/2019 MAGDALENA ESTRADA MD, Ot J44.9 CHRONIC OBSTRUCTIVE PULMONARY DISEASE, U 06/27/2019 MAGDALENA ESTRADA MD, Ot K21.9 GASTRO-ESOPHAGEAL REFLUX DISEASE WITHOUT 06/27/2019 MAGDALENA ESTRADA MD, Ot K59.09 OTHER CONSTIPATION 06/27/2019 MAGDALENA ESTRADA MD, Ot M06.9 RHEUMATOID ARTHRITIS, UNSPECIFIED 06/27/2019 MAGDALENA ESTRADA MD, Ot M54.9 DORSALGIA, UNSPECIFIED 06/27/2019 MAGDALENA ESTRADA MD, Ot M62.830 MUSCLE SPASM OF BACK 06/27/2019 MAGDALENA ESTRADA MD, Ot Z79.84 HALFWAY (CURRENT) USE OF ORAL HYPOGLYC 06/27/2019 MAGDALENA ESTRADA MD, Ot Z79.899 OTHER HAZ TECH (CURRENT) DRUG THERAPY 06/27/2019 MAGDALENA ESTRADA MD, Ot Z88.1 ALLERGY STATUS TO OTHER ANTIBIOTIC AGENT 06/27/2019 MAGDALENA ESTRADA MD, Ot Z88.2 ALLERGY STATUS TO SULFONAMIDES STATUS 06/30/2019 MAGDALENA ESTRADA MD, Ot B19.20 UNSPECIFIED VIRAL HEPATITIS C WITHOUT HE 06/30/2019 MAGDALENA ESTRADA MD, Ot E11.40 TYPE 2 DIABETES MELLITUS WITH DIABETIC N 06/30/2019 MAGDALENA ESTRADA MD, Ot F31.9 BIPOLAR DISORDER, UNSPECIFIED 06/30/2019 MAGDALENA ESTRADA MD, Ot F41.9 ANXIETY DISORDER, UNSPECIFIED 06/30/2019 MAGDALENA ETSRADA MD, Ot G89.29 OTHER CHRONIC PAIN 06/30/2019 MAGDALENA ESTRADA MD, Ot I1 0 ESSENTIAL (PRIMARY) HYPERTENSION 06/30/2019 MAGDALENA ESTRADA MD, Ot J44.9 CHRONIC OBSTRUCTIVE PULMONARY DISEASE, U 06/30/2019 MAGDALENA ESTRADA MD, Ot K21.9 GASTRO-ESOPHAGEAL REFLUX DISEASE WITHOUT 06/30/2019 MAGDALENA ESTRADA MD, Ot K59.09 OTHER CONSTIPATION 06/30/2019 MAGDALENA ESTRADA MD, Ot M06.9 RHEUMATOID ARTHRITIS, UNSPECIFIED 06/30/2019 MAGDALENA ESTRADA MD, Ot M54.9 DORSALGIA, UNSPECIFIED 06/30/2019 MAGDALENA ESTRADA MD, Ot M62.830 MUSCLE SPASM OF BACK 06/30/2019 MAGDALENA ESTRADA MD, Ot Z79.84 HALFWAY (CURRENT) USE OF ORAL HYPOGLYC 06/30/2019 MAGDALENA ESTRADA MD, Ot Z79.899 OTHER HAZ TECH (CURRENT) DRUG THERAPY 06/30/2019 MAGDALENA ESTRADA MD, Ot Z88.1 ALLERGY STATUS TO OTHER ANTIBIOTIC AGENT 06/30/2019 MAGDALENA ESTRADA MD, Ot Z88.2 ALLERGY STATUS TO SULFONAMIDES [...] 3-70 ALT 70 U/L 6-29 REFERENCE ID [id number] NRG FOOTNOTE SEE NOTE NRG MICROALBUMIN/CREATININE RATIO, URINE - 0 06/23/18 10:45 CREATININE, RANDOM URINE 91 mg/dL 20-27 5 MICROALBUMIN 0.4 mg/dL See Note: MICROALBUMIN/CREATININE RATIO, RANDOM URINE 4 mcg/ mg creat <30 CMP - 09/05/18 14:26 GLUCOSE 126 mg/dL 65-99 UREA NITROGEN (BUN) 12 mg/dL 7-25 CREATININE 0.83 mg/dL 0.50-1.05 eGFR NON-AFR. STATELESS 82 mL/min/1.73m2 > OR = 60 eGFR [...] culture - 10/04/18 13:25 Bacterial urine culture [id number] NRG COLONY COUNT >100,000/ML NRG FTX;REPORTABLE SUSCEPTIBILITY [...] culture - 03/08/19 16:55 Bacterial urine culture [id number] NRG COLONY COUNT >100,000/ML NRG FTX;REPORTABLE SUSCEPTIBILITY REPORTED 03/11 10:05 NRG FREE TEXT ENTRY 2 PRELIM RAPID ID AT VCP NRG Dirithromycin susceptibility test by dis k [...] Gabapentin NRG COMMENT NRG Prescribed Drug 3 [place](TM) NRG Gabapentin >792945 ng/mL <1000 medMATCH Gabapentin CONSISTENT NRG SUREPATH PAP AND HPV mRNA E6/E7 - 11:34 CLINICAL INFORMATION: NRG LMP: 3-4 YEARS NRG PREV. PAP: 8 YEARS NRG PREV. BX: NO NRG SOURCE: Cervix NRG STATEMENT OF ADEQUACY: NRG INTERPRETATION/RESULT: NRG PANTOGRAPH II ENGRAVER: NRG HPV mRNA E6/E7, SUREPATH VIAL Not Detected NOT DETECTED REVIEW PANTOGRAPH II ENGRAVER: NRG COMMENT NRG LH - 07/13/19 14:13 LH 42.7 mIU/mL NRG Encounters ACCT No. Visit Date/Time Discharge Status Pt. Type Provider Facility Loc./Unit Complaint [id number] 06/29/2019 11:00:00 06/29/2019 23:59:5 9 CLS Outpatient TARIQ FOSTER [id number] 07/13/2019 13:45:00 Document Registration [id number] 03/29/2019 10:00:00 Document Registration [id number] 03/23/2019 12:45:00 Document Registration [id number] 02/07/2019 14:00:00 Document Registration [id number] 01/27/2019 08:15:00 Document Registration [id number] 09/05/2018 13:20:00 Document Registration [id number] 06/23/2018 09:30:00 Document Registration [id number] 05/10/2018 09:20:00 Document Registration [id number] 06/26/2019 13:38:00 14:10:00 DIS Outpatient MAGDALENA ESTRADA MD Via [facility] ER FS IRVING HIP/BACK PAIN [id number] 06/11/2019 20:24:00 21:37:00 DIS Outpatient ZAIN MURILLO DO [facility] ER FS RT ANKLE INJURY [id number] 05/30/2019 13:00:00 23:59:59 CLS Preadmit HILTON ABARCA DO [facility] ENDO FAMILY HX COLON CA [id number] 05/23/2019 05:40:00 14:19:00 DIS Outpatient HILTON ABARCA DO [facility] PREOP COLONOSCOPY [id number] 03/24/2019 20:20:00 23:00:00 DIS Emergency JESENIA DOBBS MD [facility] ER FS FELL/HIP,KNEE,LOWER PADILLA K PAIN [id number] 03/17/2019 14:29:00 21:55:00 DIS Emergency JESENIA DOBBS MD [facility] ER FS DRUG INDUCED PSYCHOSIS [id number] 03/10/2019 10:18:00 14:19:00 DIS Emergency RADHA HAYES, PRECIOUS Dillon [facility] ER FS AMS [id number] 03/08/2019 16:25:00 19:52:00 DIS Emergency SONI HAYES, CHLOE Bj [facility] ER FS ALTERED MENTAL STATUS [id number] 02/08/2019 16:31:00 17:00:00 DIS Emergency MARIZA HAYES, JERRI Schumacher [facility] ER FS DENTAL PAIN/SWELLING [id number] 01/28/2019 17:11:00 17:43:00 DIS Emergency MILDRED HAYES, TERRA Mora [facility] ER FS DENTAL PAIN [id number] 01/01/2019 17:00:00 18:30:00 DIS Emergency BENNY HAYES, KENNA Cunningham [facility] ER FS NECK/FACE PAIN [id number] 12/17/2018 21:58:00 22:50:00 DIS Emergency DILIA HAYES, JESENIA Mitchell [facility] ER FS PHYSICAL ALTERCATION [id number] 10/04/2018 12:56:00 15:40:00 DIS Emergency JAMILA WALKER DO [facility] ER FS FALL; BACK/HIP PAIN; BI L LEG SWELLING [id number] 06/18/2018 13:36:00 16:00:00 DIS Emergency LIT HAYES, MADDI Lloyd [facility] ER FS LOWER BACK/HIP PAIN [id number] 05/10/2018 08:02:00 08:02:00 CAN Preadmit DWAYNE FOSTER [facility] LAB FS B18.2 [id number] 05/10/2018 07:39:00 07:39:00 CAN Preadmit RAFFAELE HUI MD [facility] LAB FS I10
== END 2019-07-19 12:44 | disposition home or self-care (01) ==
LOC: EDUNIT# 11:51 → ER FS 11:53
DX: G89.29 Other chronic pain (principal); M25.551 Pain in right hip; M25.552 Pain in left hip; J44.9 Chronic obstructive pulmonary disease, unspecified; I10 Essential (primary) hypertension; E11.40 Type 2 diabetes mellitus with diabetic neuropathy, unspecified; G43.909 Migraine, unspecified, not intractable, without status migrainosus; K21.9 Gastro-esophageal reflux disease without esophagitis; K59.09 Other constipation; M54.9 Dorsalgia, unspecified; M06.9 Rheumatoid arthritis, unspecified; F41.9 Anxiety disorder, unspecified; F31.9 Bipolar disorder, unspecified; F11.20 Opioid dependence, uncomplicated; Z88.2 Allergy status to sulfonamides; Z88.1 Allergy status to other antibiotic agents; Z79.899 Other long term (current) drug therapy; Z79.84 Long term (current) use of oral hypoglycemic drugs; Z87.19 Personal history of other diseases of the digestive system
CPT/HCPCS: 99283

== ENCOUNTER → 2019-07-19 | Outpatient (CLI) | payer MEDICAID ==
[~2019-07-19] MED LIST changes: +DICL75TA2 PO
--- NOTE | 2019-07-19 17:11 | Diagnostic Imaging Report ---
INDICATION: Pelvic pain. EXAMINATION: Pelvis and bilateral hips. A single AP view of the pelvis and AP and lateral views of both hips were obtained. FINDINGS: There is no fracture, dislocation or acute bony abnormality evident. There is moderate degenerative disease involving the hip and sacroiliac joints. The degenerative changes seem similar to the prior exam of 01/01/2019. The postoperative changes involving the lower lumbar spine, noted on the prior study, are also again evident and do not appear to have changed significantly. The soft tissues are unremarkable. The IUD, seen on the prior study, has been removed however. IMPRESSION: There is no evidence for an acute bony abnormality. Dictated by: Dictated on workstation # [id number]
== END ==
LOC: RAD FS 15:34
PROVIDERS: ATTEND Nurse Practitioner Family
DX: M25.552 Pain in left hip (principal); M25.551 Pain in right hip
CPT/HCPCS: 73521

== ENCOUNTER → 2019-10-09 | Outpatient (CLI) | payer MEDICAID ==
[~2019-10-09] MED LIST changes: -DICL1ADH18 TD; +DICL1PAT11 TD
--- NOTE | 2019-10-09 16:20 | Diagnostic Imaging Report ---
PROCEDURE: MRI lumbar spine. TECHNIQUE: Multiplanar, multisequence MRI of the lumbar spine was performed without contrast. INDICATION: Low back pain. Prior lumbar spine surgery. COMPARISON: CT lumbar spine without contrast from 10/04/2018. FINDINGS: There are five lumbar-type vertebral bodies for the purposes of this report. Stable grade 1 anterolisthesis of L5 on S1. Alignment is otherwise normal. Vertebral body heights are preserved. Bilateral hannah and pedicle screw fixation at L4-S1 with laminectomies. No fluid collections in the postoperative soft tissues. The spinal canal is decompressed well at the postoperative levels. No abnormal signal in the conus which terminates at L1. Normal morphology of the cauda equina. The visualized paravertebral soft tissues are unremarkable. L1-L2: Normal. L2-L3: Normal. L3-L4: Central disc extrusion combines with facet arthropathy to result in severe spinal canal stenosis. There is increased fluid within the facet joints bilaterally. There is also severe bilateral neuroforaminal narrowing. L4-L5: Spinal canal is decompressed well. Disc space height loss and osteophytic ridging result in moderate bilateral neuroforaminal narrowing. L5-S1: Spinal canal is decompressed well. Moderate bilateral neuroforaminal narrowing. IMPRESSION: 1. Bilateral hannah and pedicle screw fixation with laminectomies at L4-S1. There is stable grade 1 anterolisthesis of L5 on S1. The spinal canal is decompressed well at the postoperative levels. 2. Large disc extrusion combines with facet arthropathy to result in severe spinal canal stenosis at L3-L4. There is also severe bilateral neuroforaminal narrowing and increased fluid within the facet joints. 3. Moderate bilateral neuroforaminal narrowing at L4-L5 and L5-S1. Dictated by: Dictated on workstation # [id number]
== END ==
LOC: RAD 12:38
PROVIDERS: ATTEND Nurse Practitioner Family
DX: M51.36 Other intervertebral disc degeneration, lumbar region (principal); M43.17 Spondylolisthesis, lumbosacral region; M51.26 Other intervertebral disc displacement, lumbar region; M47.816 Spondylosis without myelopathy or radiculopathy, lumbar region; M48.07 Spinal stenosis, lumbosacral region; Z98.890 Other specified postprocedural states
CPT/HCPCS: 72148

== ENCOUNTER → 2019-11-09 | Outpatient (CLI) | payer MEDICAID ==
--- NOTE | 2019-11-09 10:24 | Diagnostic Imaging Report ---
PROCEDURE: CT lumbar spine without contrast. TECHNIQUE: Multiple contiguous axial images were obtained through the lumbar spine without the use of intravenous contrast. Sagittal and coronal reformations were then performed. Auto Exposure Controls were utilized during the CT exam to meet ALARA standards for radiation dose reduction. INDICATION: Chronic low back pain. Patient's history of spinal fusion. Comparison is made with prior CT from 10/04/2018. Curvature of the lumbar spine is normal. Grade 1 spondylolisthesis L5 on S1 is again noted. There are postoperative changes of the posterior instrument fusion with vertical stabilization rods and pedicle screws transfixing the L4-S1 levels. Laminectomy at L4 and L5 is also noted. Trace lucency about the right S1 screw is seen but similar to prior exam. No definite hardware fracture is detected. Significant degenerative disc disease L3-L4, L4-L5 and L5-S1 levels noted. Vertebral body heights are maintained. No acute compression fracture is detected. Paraspinous tissues are unremarkable. IMPRESSION: Postoperative changes posterior instrumented fusion L4-S1. No definite hardware fracture or loosening is seen. Overall appearance is similar to examination from September 2018. Dictated by: Dictated on workstation # [id number]
== END ==
LOC: RAD FS 09:32
PROVIDERS: ATTEND Orthopaedic Surgery Orthopaedic Trauma
DX: M54.5 Low back pain (principal); Z98.1 Arthrodesis status
CPT/HCPCS: 72131

== ENCOUNTER → 2019-11-24 | Outpatient (CLI) | payer MEDICAID ==
[~2019-11-24] MED LIST changes: -LISI1TAB25; -LISI1TAB25 PO; +LISI1TAB46; +LISI1TAB46 PO
[2019-11-24 11:57] LABS: CLARITY,URINE CLOUDY; COLOR,URINE DARK YELLOW
[2019-11-24 11:58] LABS: BACTERIA,URINE LARGE /HPF; BILIRUBIN,URINE NEGATIVE (NEGATIVE); GLUCOSE, URINE (UA) NEGATIVE (NEGATIVE); KETONES,URINE NEGATIVE (NEGATIVE); LEUKOCYTE ESTERASE ,URINE 1+ (NEGATIVE); NITRITE,URINE NEGATIVE (NEGATIVE); PROTEIN,URINE 1+ (NEGATIVE); WBC,URINE >100 /HPF
[2019-11-24 12:04] LABS: INR 0.9 (0.8-1.4); PROTHROMBIN TIME PATIENT 12.9 SEC (12.2-14.7)
[2019-11-24 12:17] LABS: CHLORIDE 104 MMOL/L (98-107); POTASSIUM 4.3 MMOL/L (3.6-5.0); SODIUM 140 MMOL/L (135-145)
[2019-11-24 12:18] LABS: BUN/CREATININE RATIO 12; CALCIUM 9.1 MG/DL (8.5-10.1); CARBON DIOXIDE 24 MMOL/L (21-32); CREATININE SERUM 0.82 MG/DL (0.60-1.30); GFR ESTIMATED > 60; GLUCOSE 135 MG/DL (70-105)
== END ==
LOC: LAB FS 10:30
PROVIDERS: ATTEND Orthopaedic Surgery Orthopaedic Trauma
DX: Z01.812 Encounter for preprocedural laboratory examination (principal); Z01.83 Encounter for blood typing; Z01.818 Encounter for other preprocedural examination; I10 Essential (primary) hypertension; Z22.322 Carrier or suspected carrier of Methicillin resistant Staphylococcus aureus
CPT/HCPCS: 36415; 80048; 81000; 83036; 85610; 86850; 86900; 86901; 87077; 87081; 87088; 87186; 87635

== ENCOUNTER 2019-12-08 21:55 | Inpatient (IN) | payer MEDICAID ==
[~2019-12-08] VITALS: Ht 162.6 cm; Wt 88.0 kg
--- NOTE | 2019-12-08 22:04 | ED General ---
General Stated Complaint: ALTERED MENTAL STATUS Source of Information: Patient, EMS History of Present Illness Date Seen by Provider: Dec 08, 2019 Time Seen by Provider: 22:04 Initial Comments Patient is a 54 y/o female who comes to the ER this evening with some altered mental status. She arrives via EMS who primarily provides the history. Reportedly, she was at her house this evening and was noted to have some confusion or other change in mental status over the last couple of hours. EMS was called earlier to her house but her mental state had returned to normal prior to heir arrival and only wellness check was done with no transport. Following that, her son perceived her confusion to worsen and also had some concerns that the patient had stopped breathing so EMS was called again. On arrival, EMS reports patient was sitting upright on her couch, awake, and with no distress. Patient is treated for chronic pain and was found with two separate fentanyl patches on. EMS removed these and report the patient's mental status has improved during transport. On arrival, she is able to answer some questions but remains confused and fo rgets the question after a few seconds. She denies complaints or pain. Allergies and Home Medications Allergies Coded Allergies: Sulfa (Sulfonamide Antibiotics) (Verified Allergy, Mild, RASH, 05/23/19) erythromycin base (Verified Allergy, Mild, HIVES, 05/23/19) tetracycline (Verified Allergy, Mild, RASH, 05/23/19) Home Medications Atorvastatin Calcium 20 Mg Tablet, 20 MG PO DAILY, (Reported) Butalb/Acetaminophen/Caffeine 1 Each Capsule, 1 EACH PO PRN, (Reported) Carvedilol 25 Mg Tab, 25 MG PO BID, (Reported) Dapagliflozin Propanediol 5 Mg Tablet, 5 MG PO DAILY, (Reported) Diclofenac Epolamine 1 Each Patch.td12, 2 EACH TD DAILY, (Reported) Diclofenac Sodium 50 Mg Tablet.dr, 50 MG PO BID Prescribed by: JERRI DAWKINS on 02/08/19 1650 Diclofenac Sodium 75 Mg Tablet.dr, 75 MG PO BID Prescribed by: MAGDALENA ESTRADA on 06/26/19 1351 Diphenhydramine HCl 25 Mg Capsule, 25 MG PO PRN, (Reported) Exenatide Microspheres 2 Mg/0.65 Ml Pen.injctr, 2 MG SQ WEEK, (Reported) Gabapentin 400 Mg Capsule, 400 MG PO TID, (Reported) Hydrocodone/Acetaminophen 1 Each Tablet, 1 TAB PO BID PRN for PAIN-MODERATE (5- 7), (Reported) Ibuprofen 800 Mg Tablet, 800 MG PO Q8H PRN for PAIN Prescribed by: TERRA LEVY on 01/28/19 1736 Lamotrigine 25 Mg Tablet, 25 MG PO HS, (Reported) Lisinopril/Hydrochlorothiazide 1 Each Tablet, 1 EACH PO DAILY, (Reported) Metformin HCl 500 Mg Tablet, 1,000 MG PO BID, (Reported) Prazosin HCl 1 Mg Capsule, 3 MG PO HS, (Reported) Quetiapine Fumarate 400 Mg Tablet, 400 MG PO HS, (Reported) Quetiapine Fumarate 100 Mg Tablet, 100 MG PO BID, (Reported) Patient Home Medication List Home Medication List Reviewed: Yes Review of Systems Review of Systems Constitutional: no symptoms reported EENTM: no symptoms reported Respiratory: no symptoms reported Cardiovascular: no symptoms reported Gastrointestinal: no symptoms reported Genitourinary: no symptoms reported Musculoskeletal: no symptoms reported Skin: no symptoms reported Psychiatric/Neurological: Other (confusion) All Other Systems Reviewed Negative Unless Noted: Yes Past Zehueco-Scfbmp-Carzcp Hx Patient Social History Drug of Choice: Past hx Meth, THC, daughters report 03/10/19 possible flacca use Type Used: Cigarettes 2nd Hand Smoke Exposure: Yes Recent Hopitalizations: No Immunizations Up To Date Date of Pneumonia Vaccine: Dec 21, 2016 Seasonal Allergies Seasonal Allergies: Yes Past Medical History Surgeries: Yes (LAMINECTOMY) Orthopedic Respiratory: Yes (MILD) COPD Cardiac: Yes Hypertension Neurological: Yes Headaches /Migraines, Neuropathy Sexually Transmitted Disease: No HIV/AIDS: No Genitourinary: No Gastrointestinal: Yes (Hep C) Gastroesophageal Reflux, Chronic Constipation, Hepatitis Musculoskeletal: Yes Rheumatoid Arthritis, Back Injury, Chronic Back Pain Endocrine: Yes Diabetes, Non-Insulin dep HEENT: No (GLASSES) Loss of Vision: Denies Hearing Impairment: Denies Cancer: No Psychosocial: Yes (Major depressive disorder) Anxiety, Bipolar Integumentary: No Blood Disorders: No Adverse Reaction/Blood Tranf: No (N/A) Family Medical History History obtained from records due to altered mental status and underlying condition. Physical Exam Vital Signs Vital Signs - First Documented 12/08/19 21:55 Temp 36.9 Pulse 95 Resp 14 B/P (MAP) 77/40 (52) Pulse Ox 95 O2 Delivery Room Air Capillary Refill : Height, Weight, BMI Height: 5'4.00" Weight: 190lbs. oz. 86.884513hf; 29.00 BMI Method:Stated General Appearance: No Apparent Distress, WD/WN HEENT: PERRL/EOMI, TMs Normal, Pharynx Normal Neck: Non Tender, Supple Respiratory: Lungs Clear, Normal Breath Sounds Cardiovascular: Regular Rate, Rhythm, No Edema, No JVD Gastrointestinal: Normal Bowel Sounds, Non Tender, Soft Extremity: Normal Capillary Refill, No Pedal Edema Neurologic/Psychiatric: Alert, Other (moves all extremities. protecting airway. no facial asymmetry, confused, awake with eyes open, answers questions mostly correct, not oriented to date) Focused Exam Lactate Level 12/08/19 22:44: Lactic Acid Level 1.32 Lactic Acid Level Laboratory Tests Test 12/08/19 22:44 Lactic Acid Level 1.32 MMOL/L (0.50-2.00) Progress/Results/Core Measures Suspected Sepsis SIRS Temperature: Pulse: Respiratory Rate: Laboratory Tests 12/08/19 22:05: White Blood Count 8.2 Blood Pressure / Mean: 12/08/19 22:44: Lactic Acid Level 1.32 Laboratory Tests 12/08/19 22:05: Creatinine 1.57H, Platelet Count 236, Total Bilirubin < 0.2 Results/Orders Lab Results Laboratory Tests Test 12/08/19 22:05 12/08/19 22:38 12/08/19 22:44 Range/Units White Blood Count 8.2 4.3-11.0 10^3/uL Red Blood Count 3.76 L 4.35-5.85 10^6/uL Hemoglobin 11.2 L 11.5-16.0 G/DL Hematocrit 33 L 35-52 % Mean Corpuscular Volume 88 80-99 FL Mean Corpuscular Hemoglobin 30 25-34 PG Mean Corpuscular Hemoglobin Concent 34 32-36 G/DL Red Cell Distribution Width 14.2 10.0-14.5 % Platelet Count 236 130-400 10^3/uL Mean Platelet Volume 9.7 7.4-10.4 FL Immature Granulocyte % (Auto) 0 % Neutrophils (%) (Auto) 70 42-75 % Lymphocytes (%) (Auto) 23 12-44 % Monocytes (%) (Auto) 6 0-12 % Eosinophils (%) (Auto) 1 0-10 % Basophils (%) (Auto) 0 0-10 % Neutrophils # (Auto) 5.7 1.8-7.8 X 10^3 Lymphocytes # (Auto) 1.9 1.0-4.0 X 10^3 Monocytes # (Auto) 0.5 0.0-1.0 X 10^3 Eosinophils # (Auto) 0.1 0.0-0.3 10^3/uL Basophils # (Auto) 0.0 0.0-0.1 10^3/uL Immature Granulocyte # (Auto) 0.0 0.0-0.1 10^3/uL Sodium Level 136 135-145 MMOL/L Potassium Level 4.6 3.6-5.0 MMOL/L Chloride Level 103 98-107 MMOL/L Carbon Dioxide Level 23 21-32 MMOL/L Anion Gap 10 5-14 MMOL/L Blood Urea Nitrogen 23 H 7-18 MG/DL Creatinine 1.57 H 0.60-1.30 MG/DL Estimat Glomerular Filtration Rate 35 BUN/Creatinine Ratio 15 Glucose Level 79 70-105 MG/DL Calcium Level 8.9 8.5-10.1 MG/DL Corrected Calcium 9.2 8.5-10.1 MG/DL Total Bilirubin < 0.2 0.1-1.0 MG/DL Aspartate Amino Transf (AST/SGOT) 20 5-34 U/L Alanine Aminotransferase (ALT/SGPT) 16 0-55 U/L Alkaline Phosphatase 105 40-136 U/L Troponin I < 0.30 <0.30 NG/ML Total Protein 6.3 L 6.4-8.2 GM/DL Albumin 3.6 3.2-4.5 GM/DL Serum Alcohol < 10 <10 MG/DL Urine Color YELLOW Urine Clarity CLOUDY Urine pH 6.0 5-9 Urine Specific Mcdougal 1.025 H 1.016-1.022 Urine Protein 1+ H NEGATIVE Urine Glucose (UA) NEGATIVE NEGATIVE Urine Ketones NEGATIVE NEGATIVE Urine Nitrite NEGATIVE NEGATIVE Urine Bilirubin NEGATIVE NEGATIVE Urine Urobilinogen 0.2 < = 1.0 MG/DL Urine Leukocyte Esterase 2+ H NEGATIVE Urine RBC (Auto) 1+ H NEGATIVE Urine RBC NONE /HPF Urine WBC 25-50 H /HPF Urine Squamous Epithelial Cells 2-5 /HPF Urine Crystals NONE /LPF Urine Bacteria LARGE H /HPF Urine Casts PRESENT /LPF Urine Hyaline Casts 0-2 H /LPF Urine Mucus NEGATIVE /LPF Urine Culture Indicated YES Urine Opiates Screen NEGATIVE NEGATIVE Urine Oxycodone Screen NEGATIVE NEGATIVE Urine Methadone Screen NEGATIVE NEGATIVE Urine Propoxyphene Screen NEGATIVE NEGATIVE Urine Barbiturates Screen NEGATIVE NEGATIVE Ur Tricyclic Antidepressants Screen POSITIVE H NEGATIVE Urine Phencyclidine Screen NEGATIVE NEGATIVE Urine Amphetamines Screen NEGATIVE NEGATIVE Urine Methamphetamines Screen NEGATIVE NEGATIVE Urine Benzodiazepines Screen NEGATIVE NEGATIVE Urine Cocaine Screen NEGATIVE NEGATIVE Urine Cannabinoids Screen NEGATIVE NEGATIVE Lactic Acid Level 1.32 0.50-2.00 MMOL/L My Orders Orders - MAGDALENA SAEED DO Ed Iv/Invasive Line Start (12/08/19 22:05) Cbc With Automated Diff (12/08/19 22:05) Comprehensive Metabolic Panel (12/08/19 22:05) Lactic Acid Analyzer (12/08/19 22:05) Troponin I Fs (12/08/19 22:05) Ekg Tracing (12/08/19 22:05) Urinalysis (12/08/19 22:05) Drug Screen Stat (Urine) (12/08/19 22:05) Alcohol (12/08/19 22:05) Ct Head Wo (12/08/19 22:05) Ns Iv 1000 Ml (Sodium Chloride 0.9%) (12/08/19 22:15) Chest 1 View Ap/Pa Only (12/08/19 22:33) Flynn Cath (12/08/19 22:40) Urine Culture (12/08/19 22:38) Blood Culture (12/08/19 23:06) Ceftriaxone For Iv Use (Rocephin For I (12/08/19 23:15) Ns Iv 1000 Ml (Sodium Chloride 0.9%) (12/08/19 23:30) Ns Iv 1000 Ml (Sodium Chloride 0.9%) (12/08/19 23:45) Blood Culture (12/09/19 00:04) Medications Given in ED Current Medications Medications Dose Ordered Sig/Jorge Route Start Time Stop Time Status Last Admin Dose Admin Ceftriaxone Sodium 2000 mg/ Sterile Water 20 ml @ 240 mls/hr ONCE ONCE IV 12/08/19 23:15 12/08/19 23:19 DC 12/08/19 23:40 240 MLS/HR Vital Signs/I&O 12/08/19 21:55 Temp 36.9 Pulse 95 Resp 14 B/P (MAP) 77/40 (52) Pulse Ox 95 O2 Delivery Room Air 12/09/19 00:00 Intake Total 1420 ml Balance 1420 ml Capillary Refill : Progress Note : Time: 22:30 Progress Note Patient is evaluated on arrival to her room. Confused but otherwise normal neuro exam. Noted to have some hypotension on arrival with SBP 88. IVF's from EMS continued. EMS reports patient to be improved since beginning transport and removing fentanyl patches. Labs ordered. CT head. Chest XR and UA/UDS ordered. 00:05: Patient now sleeping but does arouse easily. She is more oriented and answering most questions appropriately. She is willing to be admitted to the hospital. Labs are reviewed. No elevated white count. Lactate is not elevated. Patient has urinary tract infection and she states she has had symptoms consistent with this over the last 2-3 days but denies fever. After 2 L of normal saline, however, the patient remains hypotensive. The etiology for this is not entirely clear. Her urine drug screen is negative despite that she had 2 fentanyl patches on her body when found by EMS. She does not appear septic or toxic on physical examination. A third liter of normal saline is initiated. Patient has not tachycardic. Do not feel her hypotension is likely secondary to sepsis and no pressor medication is started. I did have her speak to Dr. Ibrahim about admitting the patient to [facility] and decision was made to place her in ICU at least overnight. Patient is agreeable to this plan of care. Patient was given 2 g of Rocephin in the emergency department unfortunately prior to collection of blood cultures. Flynn was placed and she was making urine. Creatinine was also mildly elevated and last known results in the computer system was normal. EMS transfer will be pending. 00:45: EMS present for transfer. Patient continues to have hypotension but not worsening. She denies symptoms. NS liter #3 running. Feel she is stable for transfer at this time. ECG Initial ECG Impression Date: Dec 08, 2019 Initial ECG Impression Time: 22:25 Initial ECG Rate: 94 Initial ECG Rhythm: Normal Sinus Initial ECG Intervals: Normal Initial ECG Impression: Normal Departure Communication (Admissions) Time/Spoke to Admitting Phy: 00:07 Dr. Ibrahim requests ICU admission Impression Primary Impression: Acute kidney injury (nontraumatic) Additional Impressions: Altered mental status Urinary tract infection Disposition: ADMITTED INPATIENT Condition: Improved Admissions Decision to Admit Reason: Admit from ER (General) Decision to Admit/Date: Dec 08, 2019 Time/Decision to Admit Time: 23:45 Departure-Patient Inst. Referrals: [facility] (PCP) Primary Care Physician TARIQ FOSTER APRN (Family) Primary Care Physician MAGDALENA SAEED DO Dec 08, 2019 22:04
[2019-12-08] MEDS ORDERED: NS IV 1000 ML 1,000 ML IV SCH ×2 (22:15→23:30)
[2019-12-08 22:16] LABS: HEMATOCRIT 33 % (35-52); HEMOGLOBIN 11.2 G/DL (11.5-16.0); MEAN CORPUSCULAR HEMOGLOBIN 30 PG (25-34); MEAN CORPUSCULAR HGB CONC 34 G/DL (32-36); MEAN CORPUSCULAR VOLUME 88 FL (80-99); MEAN PLATELET VOLUME 9.7 FL (7.4-10.4); PLATELET COUNT 236 10^3/uL (130-400); WHITE BLOOD COUNT 8.2 10^3/uL (4.3-11.0)
[2019-12-08 22:17] LABS: BASOPHILS % (AUTO) 0 % (0-10); EOSINOPHILS # (AUTO) 0.1 10^3/uL (0.0-0.3); EOSINOPHILS % (AUTO) 1 % (0-10); LYMPHOCYTES # (AUTO) 1.9 X 10^3 (1.0-4.0); LYMPHOCYTES % (AUTO) 23 % (12-44); MONOCYTES # (AUTO) 0.5 X 10^3 (0.0-1.0); MONOCYTES % (AUTO) 6 % (0-12); NEUTROPHILS # (AUTO) 5.7 X 10^3 (1.8-7.8); NEUTROPHILS % (AUTO) 70 % (42-75)
[2019-12-08 22:30] LABS: ALANINE AMINOTRANSFERASE 16 U/L (0-55); ALKALINE PHOSPHATASE 105 U/L (40-136); BILIRUBIN,TOTAL < 0.2 MG/DL (0.1-1.0); BUN/CREATININE RATIO 15; CALCIUM 8.9 MG/DL (8.5-10.1); CARBON DIOXIDE 23 MMOL/L (21-32); CHLORIDE 103 MMOL/L (98-107); CREATININE SERUM 1.57 MG/DL (0.60-1.30); GFR ESTIMATED 35; GLUCOSE 79 MG/DL (70-105); POTASSIUM 4.6 MMOL/L (3.6-5.0); SODIUM 136 MMOL/L (135-145); TOTAL PROTEIN 6.3 GM/DL (6.4-8.2)
[2019-12-08 22:31] LABS: ALBUMIN 3.6 GM/DL (3.2-4.5)
[2019-12-08 22:52] LABS: CLARITY,URINE CLOUDY; COLOR,URINE YELLOW; GLUCOSE, URINE (UA) NEGATIVE (NEGATIVE); PROTEIN,URINE 1+ (NEGATIVE)
[2019-12-08 22:53] LABS: BACTERIA,URINE LARGE /HPF; BILIRUBIN,URINE NEGATIVE (NEGATIVE); KETONES,URINE NEGATIVE (NEGATIVE); LEUKOCYTE ESTERASE ,URINE 2+ (NEGATIVE); NITRITE,URINE NEGATIVE (NEGATIVE); WBC,URINE 25-50 /HPF
[2019-12-08 22:54] LABS: HYALINE CASTS, URINE 0-2 /LPF
[2019-12-08 22:57] LABS: TRICYCLIC ANTIDEPRESSANTS SCRE POSITIVE (NEGATIVE)
[2019-12-08 22:58] LABS: AMPHETAMINE SCREEN, URINE NEGATIVE (NEGATIVE); BARBITURATE SCREEN URINE NEGATIVE (NEGATIVE); BENZODIAZEPINES SCREEN URINE NEGATIVE (NEGATIVE); CANNABINOID SCREEN, URINE NEGATIVE (NEGATIVE); COCAINE SCREEN URINE NEGATIVE (NEGATIVE); METHADONE STAT NEGATIVE (NEGATIVE); METHAMPHETAMINE SCREEN URINE S NEGATIVE (NEGATIVE); OPIATE SCREEN URINE NEGATIVE (NEGATIVE); OXYCODONE STAT NEGATIVE (NEGATIVE); PROPOXYPHENE STAT NEGATIVE (NEGATIVE)
[2019-12-08] MEDS ORDERED: cefTRIAXone FOR IV USE 2,000 MG in WATER (STERILE) FOR INJECTION 20 ML IV ONE (23:15)
[2019-12-08] MEDS ORDERED: NS IV 1000 ML 1,000 ML IV ONE (23:45)
[2019-12-09] VITALS (22 sets, daily range): BP systolic 87–170; BP diastolic 7–96
[2019-12-09] MEDS ORDERED: ONDANSETRON 4 MG/2 ML (SDV) Z0FRAN IVP PRN (01:45)
[2019-12-09] MEDS ORDERED: NS IV 1000 ML 1,000 ML IV SCH ×2 (02:00→05:15)
--- NOTE | 2019-12-09 02:27 | NUR ---
CORDELIA LINDA admitted to room CU8-1, with an admitting diagnosis of AMS, ZULEYMA, UTI, on 12/09/19 from ED via stretcher, accompanied by EMS.CORDELIA LINDA introduced to surroundings, call light, bed controls, phone, TV, temperature control, lights, meal times, smoking policy, visitor policy, side rail policy, bathrooms and showers. Patient Rights given to patient in the handbook. CORDELIA LINDA verbalizes understanding that [facility] is not responsible for the loss or damage to any personal effects or valuables that are kept in the patients possession during their hospitalization. The following Patient Care Plans were discussed with the patient: Discharge Planning, activity,diet, and pain. CORDELIA LINDA verbalizes understanding of Interdisciplinary Patient Education. Patient and/or family were informed about the Rapid Response Team and its purpose.
[2019-12-09 04:07] LABS: ALBUMIN 3.3 GM/DL (3.2-4.5)
[2019-12-09 04:08] LABS: POTASSIUM 5.2 MMOL/L (3.6-5.0)
[2019-12-09 04:09] LABS: CALCIUM 7.9 MG/DL (8.5-10.1)
[2019-12-09 04:10] LABS: TOTAL PROTEIN 5.9 GM/DL (6.4-8.2)
[2019-12-09 04:12] LABS: BASOPHILS % (AUTO) 0 % (0-10); BILIRUBIN,TOTAL 0.1 MG/DL (0.1-1.0); EOSINOPHILS # (AUTO) 0.2 10^3/uL (0.0-0.3); EOSINOPHILS % (AUTO) 2 % (0-10); HEMATOCRIT 32 % (35-52); HEMOGLOBIN 10.4 g/dL (11.5-16.0); LYMPHOCYTES # (AUTO) 2.1 10^3/uL (1.0-4.0); LYMPHOCYTES % (AUTO) 29 % (12-44); MEAN CORPUSCULAR HEMOGLOBIN 29 pg (25-34); MEAN CORPUSCULAR HGB CONC 32 g/dL (32-36); MEAN CORPUSCULAR VOLUME 90 fL (80-99); MEAN PLATELET VOLUME 9.7 fL (9.0-12.2); MONOCYTES # (AUTO) 0.4 10^3/uL (0.0-1.0); MONOCYTES % (AUTO) 6 % (0-12); NEUTROPHILS # (AUTO) 4.4 10^3/uL (1.8-7.8); NEUTROPHILS % (AUTO) 62 % (42-75); PLATELET COUNT 185 10^3/uL (130-400)
[2019-12-09 04:13] LABS: PHOSPHORUS 3.5 MG/DL (2.3-4.7)
[2019-12-09 04:14] LABS: CREATININE SERUM 1.39 MG/DL (0.60-1.30)
[2019-12-09 04:16] LABS: MAGNESIUM 1.4 MG/DL (1.6-2.4)
--- NOTE | 2019-12-09 05:08 | Pulmonary Consultation ---
History of Present Illness History of Present Illness Date Seen by Provider: Dec 09, 2019 Time Seen by Provider: 05:02 Date of Admission Allergies and Home Medications Allergies Coded Allergies: Sulfa (Sulfonamide Antibiotics) (Verified Allergy, Mild, RASH, 05/23/19) erythromycin base (Verified Allergy, Mild, HIVES, 05/23/19) tetracycline (Verified Allergy, Mild, RASH, 05/23/19) Home Medications Atorvastatin Calcium 20 Mg Tablet, 20 MG PO DAILY, (Reported) Butalb/Acetaminophen/Caffeine 1 Each Capsule, 1 EACH PO PRN, (Reported) Carvedilol 25 Mg Tab, 25 MG PO BID, (Reported) Dapagliflozin Propanediol 5 Mg Tablet, 5 MG PO DAILY, (Reported) Diclofenac Epolamine 1 Each Patch.td12, 2 EACH TD DAILY, (Reported) Diclofenac Sodium 50 Mg Tablet.dr, 50 MG PO BID Prescribed by: JERRI DAWKINS on 02/08/19 1650 Diclofenac Sodium 75 Mg Tablet.dr, 75 MG PO BID Prescribed by: MAGDALENA ESTRADA on 06/26/19 1351 Diphenhydramine HCl 25 Mg Capsule, 25 MG PO PRN, (Reported) Exenatide Microspheres 2 Mg/0.65 Ml Pen.injctr, 2 MG SQ WEEK, (Reported) Gabapentin 400 Mg Capsule, 400 MG PO TID, (Reported) Hydrocodone/Acetaminophen 1 Each Tablet, 1 TAB PO BID PRN for PAIN-MODERATE (5- 7), (Reported) Ibuprofen 800 Mg Tablet, 800 MG PO Q8H PRN for PAIN Prescribed by: TERRA LEVY on 01/28/19 1733 Lamotrigine 25 Mg Tablet, 25 MG PO HS, (Reported) Lisinopril/Hydrochlorothiazide 1 Each Tablet, 1 EACH PO DAILY, (Reported) Metformin HCl 500 Mg Tablet, 1,000 MG PO BID, (Reported) Prazosin HCl 1 Mg Capsule, 3 MG PO HS, (Reported) Quetiapine Fumarate 400 Mg Tablet, 400 MG PO HS, (Reported) Quetiapine Fumarate 100 Mg Tablet, 100 MG PO BID, (Reported) Past Wvetcwu-Hmxcag-Ybsxwy Hx Patient Social History Alcohol Use: Denies Use Recreational Drug Use: No Drug of Choice: Past hx Meth, THC, daughters report 03/10/19 possible flacca use Type Used: Cigarettes 2nd Hand Smoke Exposure: Yes Recent Foreign Travel: No Contact w/Someone Who Travel: No Recent Infectious Disease Expo: No Recent Hopitalizations: No Physical Abuse: No Sexual Abuse: No Mistreated: No Fear: No Immunizations Up To Date Date of Pneumonia Vaccine: Dec 21, 2016 Seasonal Allergies Seasonal Allergies: Yes Past Medical History Surgeries: Yes (LAMINECTOMY) Orthopedic Respiratory: Yes (MILD) COPD Cardiac: Yes Hypertension Neurological: Yes Headaches /Migraines, Neuropathy Sexually Transmitted Disease: No HIV/AIDS: No Genitourinary: No Gastrointestinal: Yes (Hep C) Gastroesophageal Reflux, Chronic Constipation, Hepatitis Musculoskeletal: Yes Rheumatoid Arthritis, Back Injury, Chronic Back Pain Endocrine: Yes Diabetes, Non-Insulin dep HEENT: No (GLASSES) Loss of Vision: Denies Hearing Impairment: Denies Cancer: No Psychosocial: Yes (Major depressive disorder) Anxiety, Bipolar Integumentary: No Blood Disorders: No Adverse Reaction/Blood Tranf: No (N/A) Family Medical History History obtained from records due to altered mental status and underlying condition. Sepsis Event Evaluation Height, Weight, BMI Height: 5'4.00" Weight: 190lbs. oz. 86.622053yq; 33.62 BMI Method:Stated Exam Exam Vital Signs Date Time Temp Pulse Resp B/P (MAP) Pulse Ox O2 Delivery O2 Flow Rate FiO2 12/09/19 03:50 Nasal Cannula 2.00 12/09/19 03:36 36.0 12/09/19 02:30 88 11 87/51 (63) 94 Nasal Cannula 2.00 12/09/19 02:15 92 15 101/65 (77) 93 Nasal Cannula 2.00 12/09/19 02:09 Nasal Cannula 2.00 12/09/19 02:00 91 13 110/69 (83) 93 Nasal Cannula 2.00 12/09/19 01:45 92 11 101/88 (92) 94 Nasal Cannula 2.00 12/09/19 01:40 93 12/09/19 01:32 36.5 92 18 106/79 (88) 95 Nasal Cannula 2.00 12/09/19 00:49 93 13 81/54 95 Nasal Cannula 1.00 12/08/19 21:55 36.9 95 14 77/40 (52) 95 Room Air I & O 12/09/19 07:00 Intake Total 2420 ml Output Total 200 ml Balance 2220 ml Height & Weight Height: 5'4.00" Weight: 190lbs. oz. 86.193367be; 33.62 BMI Method:Stated General Appearance: No Apparent Distress, WD/WN HEENT: PERRL/EOMI, TMs Normal, Pharynx Normal Neck: Non Tender, Supple Respiratory: Lungs Clear, Normal Breath Sounds Cardiovascular: Regular Rate, Rhythm, No Edema, No JVD Capillary Refill: Less Than 3 Seconds Extremity: Normal Capillary Refill, No Pedal Edema Neurologic/Psychiatric: Alert, Other (moves all extremities. protecting airway. no facial asymmetry, confused, awake with eyes open, answers questions mostly correct, not oriented to date) Results Lab Laboratory Tests 12/08/19 22:05 12/09/19 03:40 Assessment/Plan Assessment/Plan Lethargy secondary to home meds -Pt had 2 pain patches on per EMS -Pain meds/pathes on hold -Check ABG Hypotension -IVF -- Give a liter bolus ZULEYMA with hyperkalmia -Repeat labs 1300 -IVF UTI LIVIA COLES DO Dec 09, 2019 05:08
[2019-12-09] MEDS ORDERED: ENOXAPARIN 40 MG/0.4 ML (LOVENOX) SYR ONE (05:13)
[2019-12-09] MEDS ORDERED: NS IV 1000 ML 1,000 ML ONE (05:13)
[2019-12-09] MEDS ORDERED: D5 1/2 NS 1000 ML IV SOLUTION 1,000 ML IV ONE (05:13)
[2019-12-09] MEDS ORDERED: D5 1/2 NS 1000 ML IV SOLUTION 1,000 ML IV SCH (05:15)
[2019-12-09] MEDS: ENOXAPARIN 40 MG/0.4 ML (LOVENOX) SYR SC SCH (05:45)
[2019-12-09] MEDS: MAGNESIUM 1 GM/100 ML IVPB 100 ML IV SCH ×2 (05:46→06:46)
[2019-12-09] MEDS ORDERED: MAGNESIUM 1 GM/100 ML IVPB 100 ML IV SCH (06:00)
[2019-12-09] MEDS ORDERED: KCL 20 MEQ TAB (K-DUR) PO SCH (06:00)
[2019-12-09] MEDS ORDERED: POTASSIUM CL 10MEQ/50ML IVPB 50 ML IV SCH (06:00)
[2019-12-09 06:09] LABS: ABG BASE EXCESS -4.6 MMOL/L (-2.5-2.5); ABG OXYGEN SATURATION 94 % (94-100); ABG PCO2 62 MMHG (35-45); ABG PO2 82 MMHG (79-93); ABG TCO2 24.8 MMOL/L (21.0-31.0)
[2019-12-09 06:13] LABS: ABG PH 7.18 (7.37-7.43); ALLENS TEST POSITIVE; INSPIRED O2 RA; PATIENT TEMP 36.1; VENTILATOR NO
--- NOTE | 2019-12-09 06:29 | History & Physical-Hospitalist ---
History of Present Illness HPI/Chief Complaint CC: OD on Fentanyl patches HPI: This is a 54yoWF clinic patient of [facility] who has chronic pain who was brought to [facility] in [facility]. ABG revealed severe hypoxia and hypercapnia and also had hypotension not connected to sepsis. Patient was given IVF and placed in ICU. Patient was assessed by Dr Comer and recommended intubation and she refused. Patient has become more alert now and appears to be improved and asking to eat. She was found to have multiple Fentanyl patches on and those were removed. Source: patient Exam Limitations: no limitations Date Seen 12/09/19 Time Seen by a Provider: 11:00 Attending Physician Kylah Ibrahim DO [facility] [place] Referring Physician Date of Admission Dec 09, 2019 at 00:05 Home Medications & Allergies Home Medications Reviewed patient Home Medication Reconciliation performed by pharmacy medication reconciliations transport technician and/or nursing. Patients Allergies have been reviewed. Allergies Allergies Coded Allergies Sulfa (Sulfonamide Antibiotics) (Verified Allergy, Mild, RASH, 05/23/19) erythromycin base (Verified Allergy, Mild, HIVES, 05/23/19) tetracycline (Verified Allergy, Mild, RASH, 05/23/19) Past Hxehqra-Jbkrae-Bssmvq Hx Past Med/Social Hx: Reviewed Nursing Past Med/Soc Hx, Reviewed and Corrections made Patient Social History Marrital Status: single Employed/Student: unemployed Alcohol Use: Denies Use Recreational Drug Use: No Drug of Choice: Past hx Meth, THC, daughters report 03/10/19 possible flacca use Type Used: Cigarettes 2nd Hand Smoke Exposure: Yes Recent Foreign Travel: No Contact w/other who traveled: No Recent Hopitalizations: No Recent Infectious Disease Expo: No Immunizations Up To Date Date of Pneumonia Vaccine: Dec 21, 2016 Seasonal Allergies Seasonal Allergies: Yes Past Medical History Surgeries: Orthopedic Cardiac: Hypertension Neurological: Headaches /Migraines, Neuropathy Sexually Transmitted Disease: No HIV/AIDS: No Gastrointestinal: Gastroesophageal Reflux, Chronic Constipation, Hepatitis Musculoskeletal: Rheumatoid Arthritis, Back Injury, Chronic Back Pain Endocrine: Diabetes, Non-Insulin dep Loss of Vision: Denies Hearing Impairment: Denies Psychosocial: Anxiety, Bipolar History of Blood Disorders: No Adverse Reaction to Blood Bowen: No (N/A) Family History History obtained from records due to altered mental status and underlying condition. Review of Systems Constitutional: see HPI, malaise, weakness Physical Exam Physical Exam Vital Signs Vital Signs - First Documented 12/08/19 12/09/19 12/09/19 21:55 00:49 08:00 Temp 36.9 Pulse 95 Resp 14 B/P (MAP) 77/40 (52) Pulse Ox 95 O2 Delivery Room Air O2 Flow Rate 1.00 FiO2 30 Capillary Refill : Less Than 3 Seconds Height, Weight, BMI Height: 5'4.00" Weight: 190lbs. oz. 86.729983wh; 33.62 BMI Method:Stated General Appearance: No Apparent Distress, Anxious, Chronically ill Eyes: Right Eye Normal Inspection, Right Eye PERRL HEENT: PERRL/EOMI, Normal ENT Inspection, Pharynx Normal, Moist Mucous Membranes Neck: Full Range of Motion, Normal Inspection, Non Tender Respiratory: Chest Non Tender, Lungs Clear, Normal Breath Sounds, No Accessory Muscle Use, No Respiratory Distress Cardiovascular: Regular Rate, Rhythm, No Edema, No Gallop, No JVD, No Murmur, Normal Peripheral Pulses Gastrointestinal: Normal Bowel Sounds, No Organomegaly, No Pulsatile Mass, Non Tender, Soft Back: Normal Inspection, No CVA Tenderness, No Vertebral Tenderness Extremity: Normal Capillary Refill, Normal Inspection, Normal Range of Motion, Non Tender, No Calf Tenderness, No Pedal Edema Neurologic/Psychiatric: Alert, Oriented x3, No Motor/Sensory Deficits, Normal Mood/Affect Skin: Normal Color, Warm/Dry Lymphatic: No Adenopathy Results Results/Procedures Labs Laboratory Tests 12/08/19 22:05 12/09/19 03:40 12/09/19 13:15 Patient resulted labs reviewed. Assessment/Plan Admission Diagnosis Assessment: AMS due to Fentanyl OD Respiratory acidosis Chronic pain Plan: ICU Supportive care Admission Status: Inpatient Order (span 2 midnights) Reason for Inpatient Admission: resp failure Diagnosis/Problems Diagnosis/Problems (1) Altered mental status Status: Acute (2) Acute kidney injury (nontraumatic) Status: Acute (3) Urinary tract infection Status: Acute Clinical Quality Measures DVT/VTE Risk/Contraindication: Risk Factor Score Per Nursin RFS Level Per Nursing on Admit: 3=High KYLAH IBRAHIM DO Dec 09, 2019 06:29
--- NOTE | 2019-12-09 07:08 | Diagnostic Imaging Report ---
PROCEDURE: CT head without contrast. TECHNIQUE: Multiple contiguous axial images were obtained through the brain without the use of intravenous contrast. Auto Exposure Controls were utilized during the CT exam to meet ALARA standards for radiation dose reduction. Indication: Altered mental status. Comparison: 03/08/2019. Discussion: Mild motion is noted. No intracranial hemorrhage, mass, midline shift, or hydrocephalus. The ventricles and sulci are normal size and configuration for age. The visualized orbits, paranasal sinuses, mastoid air cells, and calvarium are unremarkable. Impression: 1. Negative head CT. 2. Agree with preliminary report. Dictated by: Dictated on workstation # [id number]
--- NOTE | 2019-12-09 07:09 | Diagnostic Imaging Report ---
Indication: Altered mental status with dyspnea. Comparison: 03/08/2019. Discussion: Single portable upright view of the chest was obtained. Patchy infiltrates are noted within the left lung base. Findings are nonspecific and could be seen with pneumonia or atelectasis. Low lung volumes. Borderline cardiomegaly is noted. No pleural fluid or pneumothorax. No osseous abnormality. Impression: 1. Poor inspiratory effort with nonspecific infiltrates within the left lung base. Dictated by: Dictated on workstation # [id number]
[2019-12-09 08:44] LABS: ABG BASE EXCESS -3.9 MMOL/L (-2.5-2.5); ABG OXYGEN SATURATION 69 % (94-100); ABG PCO2 63 MMHG (35-45); ABG PO2 45 MMHG (79-93); ABG TCO2 25.3 MMOL/L (21.0-31.0)
[2019-12-09 08:46] LABS: ABG PH 7.19 (7.37-7.43); ALLENS TEST YES-POS; INSPIRED O2 30%
[2019-12-09 08:47] LABS: PATIENT TEMP 97.6; VENTILATOR NO
[2019-12-09] MEDS ORDERED: PANTOPRAZOLE 40 MG (PROTONIX) VIAL IV SCH (09:00)
[2019-12-09] MEDS ORDERED: PROPOFOL DRIP (ICU) 0 ML IV ONE (09:14)
[2019-12-09] MEDS ORDERED: proPOfol 200 MG/20 ML (DIPRIVAN) VIAL IV ONE (09:14)
[2019-12-09 13:47] LABS: ALBUMIN 3.5 GM/DL (3.2-4.5); POTASSIUM 4.8 MMOL/L (3.6-5.0)
[2019-12-09 13:48] LABS: CALCIUM 8.2 MG/DL (8.5-10.1)
[2019-12-09 13:49] LABS: TOTAL PROTEIN 6.3 GM/DL (6.4-8.2)
[2019-12-09 13:51] LABS: BILIRUBIN,TOTAL 0.2 MG/DL (0.1-1.0)
[2019-12-09] MEDS ORDERED: LIRA0.6P SQ (14:03)
[2019-12-09] MEDS ORDERED: BACL10TA PO (14:03)
[2019-12-09] MEDS ORDERED: GBPN600T PO (14:03)
[2019-12-09] MEDS ORDERED: LAMO100T5 PO (14:03)
[2019-12-09] MEDS ORDERED: QUET200T29 PO (14:03)
[2019-12-09] MEDS ORDERED: PRAZ2CAP2 PO ×2 (14:03)
[2019-12-09] MEDS ORDERED: 1/2 NS IV SOLUTION 1,000 ML IV PRN (14:08)
[2019-12-09] MEDS ORDERED: LORazepam INJ 2 MG/ML (ATIVAN) VIAL IM/IV PRN (14:15)
[2019-12-09] MEDS ORDERED: LORazepam 1 MG (ATIVAN) TAB PO PRN (14:15)
[2019-12-09] MEDS ORDERED: D5 1/2 NS 1000 ML IV SOLUTION 1,000 ML IV PRN (14:15)
[2019-12-09] MEDS ORDERED: ONDANSETRON 4 MG/2 ML (SDV) Z0FRAN IV PRN (14:15)
[2019-12-09] MEDS ORDERED: LORazepam INJ 2 MG/ML (ATIVAN) VIAL IV PRN (14:15)
[2019-12-09] MEDS ORDERED: ONDANSETRON 4 MG (ZOFRAN) ORAL DISSOLVE TAB SL PRN (14:15)
--- NOTE | 2019-12-09 16:40 | NUR ---
0900 - Spoke with Dr Comer in regards to patients ABG results worsening. Dr Comer ordered for patient to be intubated. This RN spoke with patient at length about intubation. Patient refuses, as well as, refuses Bipap. Patient educated on possibility of worsening condition and . Code status also discussed at this time. Patient continued to say no to intubation but okay with chest compressions and medication. This RN explained that with not oxygenation in the blood that even if chest compressions and medication were effective the patient could possible become brain . Patient understood and still requested to not be intubated. Dr Comer and Dr bIrahim updated on patients choice.
[2019-12-09 19:11] LABS: ABG BASE EXCESS -1.8 MMOL/L (-2.5-2.5); ABG OXYGEN SATURATION 95 % (94-100); ABG PCO2 46 MMHG (35-45); ABG PO2 151 MMHG (79-93); ABG TCO2 24.8 MMOL/L (21.0-31.0)
[2019-12-09 19:14] LABS: ALLENS TEST POSITIVE
[2019-12-09 19:15] LABS: ABG PH 7.32 (7.37-7.43); INSPIRED O2 30; VENTILATOR NO
[2019-12-09] MEDS ORDERED: ACETAMINOPHEN 500 MG TAB (TYLENOL) PO PRN (19:15)
--- NOTE | 2019-12-09 19:16 | NUR ---
1222 - This RN was notified by family of the patient that on November 23 of this year, the patient tested positive for COVID 19. Dr oCmer and Dr Ibrahim updated with this information.
[2019-12-09] MEDS ORDERED: IBUPROFEN 800 MG (MOTRIN) TAB PO PRN (19:30)
[2019-12-09] MEDS ORDERED: ACETAMINOPHEN 500 MG TAB (TYLENOL) ONE (19:51)
--- NOTE | 2019-12-09 20:50 | NUR ---
PT TRANSFER FROM ICU TO 4TH FLOOR VIA WC. BELONGINGS WITH PT. ASSUMED CARE OF PT AT THIS TIME. REPORT RECEIVED FROM ROSETTA BAEZ
--- NOTE | 2019-12-09 20:55 | NUR ---
Dr. Patrice west to transfer pt down to 4th floor. Patient taken down by this RN with all belongings, bedside report given to ROSETTA Macias.
[2019-12-09] MEDS ORDERED: QUEtiapine 200 MG (SEROquel) TAB IMMEDIATE RELEASE PO SCH (21:00)
[2019-12-09] MEDS ORDERED: PRAZOSIN HCL PO SCH (21:00)
[2019-12-09] MEDS: metFORMIN 500 MG (GLUCOPHAGE) TAB PO SCH (22:50)
[2019-12-09] MEDS ORDERED: cefTRIAXone 1,000 MG IV (ROCEPHIN) VIAL ONE (22:51)
[2019-12-09] MEDS: CARVEDILOL 12.5 MG (COREG) TABLET PO SCH (22:51)
[2019-12-09] MEDS: BACLOFEN 10 MG (LIORESAL) TAB PO SCH (22:51)
[2019-12-09] MEDS: GABAPENTIN 600 MG (NEURONTIN) TAB PO SCH (22:51)
[2019-12-09] MEDS: QUEtiapine 200 MG (SEROquel) TAB IMMEDIATE RELEASE PO SCH (22:51)
[2019-12-09] MEDS ORDERED: WATER (STERILE) FOR INJECTION 10 ML ONE (22:51)
[2019-12-09] MEDS ORDERED: cefTRIAXone FOR IV USE 1,000 MG in WATER (STERILE) FOR INJECTION 10 ML IV SCH (23:00)
[2019-12-10 04:00] VITALS: BP 168/88
[2019-12-10] MEDS: ENOXAPARIN 40 MG/0.4 ML (LOVENOX) SYR SC SCH (07:46)
[2019-12-10] MEDS: metFORMIN 500 MG (GLUCOPHAGE) TAB PO SCH (07:47)
[2019-12-10] MEDS: CARVEDILOL 12.5 MG (COREG) TABLET PO SCH (07:47)
[2019-12-10] MEDS: BACLOFEN 10 MG (LIORESAL) TAB PO SCH (07:47)
[2019-12-10] MEDS: GABAPENTIN 600 MG (NEURONTIN) TAB PO SCH (07:47)
[2019-12-10] MEDS: QUEtiapine 200 MG (SEROquel) TAB IMMEDIATE RELEASE PO SCH (07:48)
[2019-12-10 08:00] VITALS: BP 176/125
[2019-12-10] MEDS ORDERED: PANTOPRAZOLE 40 MG (PROTONIX) TAB PO SCH (09:00)
[2019-12-10] MEDS ORDERED: ETODOLAC 300 MG (LODINE) CAP PO SCH (09:00)
[2019-12-10] MEDS ORDERED: NON-FORMULARY MEDICATION 1 EA EA (Liraglutide (Victoza 2-Pak) 1.2 MG) SQ SCH (09:00)
[2019-12-10] MEDS ORDERED: lisINopril 20 MG (PRINIVIL) TABLET PO SCH (09:00)
[2019-12-10] MEDS ORDERED: HYDROCHLOROTHIAZIDE 12.5 MG (HCTZ) CAP PO SCH (09:00)
[2019-12-10] MEDS ORDERED: NON-FORMULARY MEDICATION 1 EA EA (Dapagliflozin Propanediol (Farxiga) 5 MG) PO SCH (09:00)
[2019-12-10] MEDS ORDERED: NON-FORMULARY MEDICATION 1 EA EA (Prazosin HCl 2 MG) PO SCH (09:00)
--- NOTE | 2019-12-10 10:39 | NUR ---
pt in no respiratory distress. Addendum: 12/10/19 at 1040 by RIK COTO RT Amended: Links added.
[2019-12-10] MEDS ORDERED: amLODIPine 5 MG (NORVASC) TAB PO NR (11:00)
[2019-12-10] MEDS ORDERED: AMLO5TAB9 PO (11:57)
[2019-12-10] MEDS ORDERED: CEFD300C3 PO (11:57)
--- NOTE | 2019-12-10 11:57 | Discharge Summary ---
Discharge Summary Hospital Course Was the Problem List Reviewed?: Yes Problems/Dx: (1) Altered mental status Status: Acute (2) Acute kidney injury (nontraumatic) Status: Acute (3) Urinary tract infection Status: Acute Hospital Course Date of Admission: Dec 09, 2019 at 00:05 Admission Diagnosis : Family Physician/Provider: Marie Booker Aprn Date of Discharge: 12/10/19 Discharge Diagnosis: narcotic OD, Respiratory insufficiency, UTI Hospital Course: patient had a complex course after admitted from [facility] for suspected OD due to 2 fentanyl patches on her skin when paramedics transported was placed in ICU but ABG was abnormal but declined intubation but she improved rapidly with supportive care and IVF and IV abx and ultimately stabilized and moved to [address] [place] [id number]. Patient ultimately denied the use of the Fentanyl patch and was DC home on abx for UTI in improved condition. Labs and Pending Lab Test: Laboratory Tests 12/09/19 13:15: Sodium Level 140, Potassium Level 4.8, Chloride Level 112H, Carbon Dioxide Level 20L, Anion Gap 8, Blood Urea Nitrogen 15, Creatinine 1.00, Estimat Glomerular Filtration Rate 58, BUN/Creatinine Ratio 15, Glucose Level 145H, Calcium Level 8.2L, Corrected Calcium 8.6, Total Bilirubin 0.2, Aspartate Amino Transf (AST/SGOT) 23, Alanine Aminotransferase (ALT/SGPT) 19, Alkaline Phosphatase 93, Total Protein 6.3L, Albumin 3.5 12/09/19 15:23: Glucometer 154H 12/09/19 19:00: Blood Gas Puncture Site RIGHT RADIAL, Blood Gas Patient Temperature 37.0, Ar terial Blood pH 7.32*L, Arterial Blood Partial Pressure CO2 46H, Arterial Blood Partial Pressure O2 151H, Arterial Blood HCO3 23, Arterial Blood Total CO2 24.8, Arterial Blood Oxygen Saturation 95, Arterial Blood Base Excess -1.8, Ino Test POSITIVE, Blood Gas Ventilator Setting NO, Blood Gas Inspired Oxygen 30 Microbiology 12/09/19 MRSA Screen - Final, Complete MRSA not isolated 12/08/19 Urine Culture - Preliminary, Resulted Escherichia coli Home Meds Active Diclofenac Sodium 75 Mg Tablet.dr 75 Mg PO BID 10 Days Ibuprofen 800 Mg Tablet 800 Mg PO Q8H PRN Reported Baclofen 10 Mg Tablet 10 Mg PO TID Victoza 2-Ant (Liraglutide) 0.6 Mg/0.1 Ml Pen.injctr 1.2 Mg SQ DAILY Prazosin HCl 2 Mg Capsule 8 Mg PO HS Quetiapine Fumarate 200 Mg Tablet 200 Mg PO BID Prazosin HCl 2 Mg Capsule 2 Mg PO DAILY Gabapentin 600 Mg Tablet 600 Mg PO TID Lamotrigine 100 Mg Tablet 100 Mg PO BID Seroquel (Quetiapine Fumarate) 400 Mg Tablet 400 Mg PO HS Farxiga (Dapagliflozin Propanediol) 5 Mg Tablet 5 Mg PO DAILY Lisinopril-Hctz 20-12.5 mg Tab (Lisinopril/Hydrochlorothiazide) 1 Each Tablet 1 Each PO DAILY Coreg (Carvedilol) 25 Mg Tab 25 Mg PO BID Metformin HCl 500 Mg Tablet 1,000 Mg PO BID Atorvastatin Calcium 20 Mg Tablet 20 Mg PO DAILY Assessment/Pt Instructions chc 1 week Discharge Planning: <30 minutes discharge planning Discharge Instructions Discharge Diet: No Restrictions Discharge Physical Examination Vital Signs Vital Signs Date Time Temp Pulse Resp B/P (MAP) Pulse Ox O2 Delivery O2 Flow Rate FiO2 12/10/19 08:00 36.4 91 20 176/125 (142) 94 Room Air 12/09/19 19:00 2.00 12/09/19 08:00 30 General Appearance: No Apparent Distress, WD/WN Allergies: Coded Allergies: Sulfa (Sulfonamide Antibiotics) (Verified Allergy, Mild, RASH, 05/23/19) erythromycin base (Verified Allergy, Mild, HIVES, 05/23/19) tetracycline (Verified Allergy, Mild, RASH, 05/23/19) Discharge Summary Date of Admission Dec 09, 2019 at 00:05 Date of Discharge Discharge Date: Dec 10, 2019 Admission Diagnosis Assessment: AMS due to Fentanyl OD Respiratory acidosis Chronic pain Plan: ICU Supportive care Discharge Diagnosis (1) Altered mental status Status: Acute (2) Acute kidney injury (nontraumatic) Status: Acute (3) Urinary tract infection Status: Acute Clinical Quality Measures DVT/VTE Risk/Contraindication: Risk Factor Score Per Nursin RFS Level Per Nursing on Admit: 3=High LANDRY GAGNON DO Dec 10, 2019 11:57
[2019-12-10 12:00] VITALS: BP 161/97
[2019-12-10 12:36] VITALS: BP 176/125
[2019-12-11] MEDS ORDERED: amLODIPine 5 MG (NORVASC) TAB PO SCH (09:00)
== END 2019-12-10 13:42 | disposition home or self-care (01) | DRG 918 ==
LOC: EDUNIT# 21:55 → ER FS 21:56 → ICU 12-09 00:05 → 4TH 12-09 20:56
PROVIDERS: ADMIT Internal Medicine; ATTEND Internal Medicine
DX: T40.4X1A Poisoning by other synthetic narcotics, accidental (unintentional), initial encounter (principal); N17.9 Acute kidney failure, unspecified; N39.0 Urinary tract infection, site not specified; E87.2 Acidosis; G89.29 Other chronic pain; R06.89 Other abnormalities of breathing; I10 Essential (primary) hypertension; K21.9 Gastro-esophageal reflux disease without esophagitis; M06.9 Rheumatoid arthritis, unspecified; E11.9 Type 2 diabetes mellitus without complications; F41.9 Anxiety disorder, unspecified; F31.9 Bipolar disorder, unspecified; Z88.2 Allergy status to sulfonamides; Z88.1 Allergy status to other antibiotic agents
CPT/HCPCS: 36415; 36600; 51702; 70450; 71045; 80053; 80306; 80320; 81000; 82805; 82962; 83605; 83735; 84100; 84484; 85025; 87040; 87077; 87081; 87088; 87635; 94660

== ENCOUNTER 2020-02-10 11:34 | Emergency (ER) | payer MEDICAID ==
[~2020-02-10] VITALS: Ht 162.6 cm; Wt 81.9 kg
[~2020-02-10 11:34] MED LIST changes: +AMLO-250 PO; +CEFD300C3 PO; +GBPN600T PO; +LAMO100T5 PO; +LIRA0.6P SQ; +PRAZ2CAP2 PO; +QUET200T29 PO
[2020-02-10 11:46] VITALS: BP 172/101
[2020-02-10] MEDS ORDERED: OXYC-471 PO (11:59)
--- NOTE | 2020-02-10 12:00 | ED Back Pain ---
General Chief Complaint: Back Problems Stated Complaint: HIP/BACK PAIN Source of Information: Patient History of Present Illness Date Seen by Provider: Feb 10, 2020 Time Seen by Provider: 11:50 Initial Comments 54 y/o female presents w request for refill of her pain medication. Says she ran out yesterday and had attempted to get a refill from her pharmacy the day prior. Now insurance is requesting a "prior auth" and her prescriber has not responded yet to authorize. Patient c/o chronic back pain, no change and no new injury. Surgery of back ([facility]) in December 2019. Allergies and Home Medications Allergies Coded Allergies: Sulfa (Sulfonamide Antibiotics) (Verified Allergy, Mild, RASH, 05/23/19) erythromycin base (Verified Allergy, Mild, HIVES, 05/23/19) tetracycline (Verified Allergy, Mild, RASH, 05/23/19) Home Medications Amlodipine Besylate 5 Mg Tablet, 5 MG PO DAILY Prescribed by: LANDRY GAGNON on 12/10/19 1157 Atorvastatin Calcium 20 Mg Tablet, 20 MG PO DAILY, (Reported) Baclofen 10 Mg Tablet, 10 MG PO TID, (Reported) Carvedilol 25 Mg Tab, 25 MG PO BID, (Reported) Cefdinir 300 Mg Capsule, 300 MG PO BID Prescribed by: LANDRY GAGNON on 12/10/19 1157 Dapagliflozin Propanediol 5 Mg Tablet, 5 MG PO DAILY, (Reported) Diclofenac Sodium 75 Mg Tablet.dr, 75 MG PO BID Prescribed by: MAGDALENA ESTRADA on 06/26/19 1351 Gabapentin 600 Mg Tablet, 600 MG PO TID, (Reported) Lamotrigine 100 Mg Tablet, 100 MG PO BID, (Reported) Liraglutide 0.6 Mg/0.1 Ml Pen.injctr, 1.2 MG SQ DAILY, (Reported) Lisinopril/Hydrochlorothiazide 1 Each Tablet, 1 EACH PO DAILY, (Reported) Metformin HCl 500 Mg Tablet, 1,000 MG PO BID, (Reported) Oxycodone HCl/Acetaminophen 1 Each Tablet, 1 EACH PO Q4H PRN for PAIN-MODERATE Prescribed by: SHEY KAY on 02/10/20 1159 Prazosin HCl 2 Mg Capsule, 2 MG PO DAILY, (Reported) Prazosin HCl 2 Mg Capsule, 8 MG PO HS, (Reported) Quetiapine Fumarate 400 Mg Tablet, 400 MG PO HS, (Reported) Quetiapine Fumarate 200 Mg Tablet, 200 MG PO BID, (Reported) Patient Home Medication List Home Medication List Reviewed: Yes Review of Systems Constitutional: no symptoms reported; No fever, No malaise, No weakness Respiratory: no symptoms reported; No cough, No short of breath Cardiovascular: no symptoms reported; No chest pain, No syncope Gastrointestinal: No abdominal pain, No nausea, No vomiting Musculoskeletal: see HPI, back pain Past Ipkqwcc-Ruutdu-Jhzkzv Hx Past Med/Social Hx: Reviewed Nursing Past Med/Soc Hx Patient Social History Alcohol Use: Denies Use Recreational Drug Use: Yes Drug of Choice: Past hx Meth, THC, daughters report 03/10/19 possible flacca use Smoking Status: Current Everyday Smoker Type Used: Cigarettes 2nd Hand Smoke Exposure: Yes Recent Hopitalizations: No Physical Abuse: No Sexual Abuse: No Mistreated: No Fear: No Immunizations Up To Date Date of Pneumonia Vaccine: Dec 21, 2016 Seasonal Allergies Seasonal Allergies: Yes Past Medical History Surgeries: Yes (LAMINECTOMY) Orthopedic Respiratory: Yes (MILD) COPD Cardiac: Yes Hypertension Neurological: Yes Headaches /Migraines, Neuropathy Sexually Transmitted Disease: No HIV/AIDS: No Genitourinary: No Gastrointestinal: Yes (Hep C) Gastroesophageal Reflux, Chronic Constipation, Hepatitis Musculoskeletal: Yes Rheumatoid Arthritis, Back Injury, Chronic Back Pain Endocrine: Yes Diabetes, Non-Insulin dep HEENT: No (GLASSES) Loss of Vision: Denies Hearing Impairment: Denies Cancer: No Psychosocial: Yes (Major depressive disorder) Anxiety, Bipolar Integumentary: No Blood Disorders: No Adverse Reaction/Blood Tranf: No (N/A) Family Medical History History obtained from records due to altered mental status and underlying condition. Physical Exam Vital Signs Capillary Refill : Height, Weight, BMI Height: 5'4.00" Weight: 190lbs. oz. [id number]; 33.62 BMI Method:Stated General Appearance: No Apparent Distress, WD/WN Extremity: Normal Capillary Refill Neurologic/Psychiatric: Alert, No Motor/Sensory Deficits, Normal Mood/Affect Skin: Normal Color, Warm/Dry Departure Impression Primary Impression: Chronic back pain Qualified Codes: M54.5 - Low back pain; G89.29 - Other chronic pain Disposition: 01 HOME, SELF-CARE Condition: Stable Departure-Patient Inst. Decision time for Depature: 11:59 Referrals: [facility] (PCP) Primary Care Physician TARIQ FOSTER APRN (Family) Primary Care Physician Patient Instructions: CHRONIC PAIN Add. Discharge Instructions: Call your PCP on Wednesday to get your refill of your pain medication All discharge instructions reviewed with patient and/or family. Voiced understan ruthann. Scripts Oxycodone HCl/Acetaminophen (Oxycodone-Acetaminophen 5-325) 1 Each Tablet 1 EACH PO Q4H PRN for PAIN-MODERATE MDD 6 for 2 Days, #8 TAB 0 Refills Prov: SHEY KAY DO 02/10/20 SHEY KAY DO Feb 10, 2020 12:00
== END 2020-02-10 12:04 | disposition home or self-care (01) ==
LOC: EDUNIT# 11:34 → ER FS 11:35
DX: G89.29 Other chronic pain (principal); M54.9 Dorsalgia, unspecified; F31.9 Bipolar disorder, unspecified; E11.9 Type 2 diabetes mellitus without complications; I10 Essential (primary) hypertension; F17.210 Nicotine dependence, cigarettes, uncomplicated; Z88.1 Allergy status to other antibiotic agents; Z88.2 Allergy status to sulfonamides; Z79.84 Long term (current) use of oral hypoglycemic drugs
CPT/HCPCS: 99281

== ENCOUNTER 2020-06-05 14:20 | Emergency (ER) | payer MEDICAID ==
[~2020-06-05 14:20] MED LIST changes: -CLIN150C17 PO; +CLIN150C18 PO; -DICL1PAT11 TD; +DICL1PAT13 TD; +OXYC1TAB11 PO
[2020-06-05] MEDS ORDERED: EPINEPHrine 0.1 MG/ML 10 ML (HOSPIRA) SYR INJ ONE (14:22)
--- NOTE | 2020-06-05 14:29 | ED CPR ---
HPI-CPR General Stated Complaint: CODE BLUE History of Present Illness Date Seen by Provider: Jun 05, 2020 Time Seen by Provider: 14:20 Initial Comments 54-year-old female brought in by EMS with CPR in progress. EMS was called for a nonresponsive patient at approximately 1150. Fire arrived at 1155 and started CPR. Initial rhythm was asystole. Patient was intubated in the field, had 4 rounds of epinephrine with good CPR. Patient remained in asystole and was in asystole upon arrival to the ER. Upon arrival to the ER rhythm check an ultrasound was performed that showed no cardiac activity along with asystole. CPR was resumed with another round of epinephrine. There was a recheck of her rhythm following the next round of epinephrine approximately 3 minutes later once again showed asystole with no cardiac activity. At this time patient had received approximately 30 minutes of CPR with no rhythm besides asystole. Patient last known well time was around 01/23/1930. No other history available at this time Allergies and Home Medications Allergies Coded Allergies: Sulfa (Sulfonamide Antibiotics) (Verified Allergy, Mild, RASH, 05/23/19) erythromycin base (Verified Allergy, Mild, HIVES, 05/23/19) tetracycline (Verified Allergy, Mild, RASH, 05/23/19) Home Medications Amlodipine Besylate 5 Mg Tablet, 5 MG PO DAILY Prescribed by: LANDRY GAGNON on 12/10/191156 Atorvastatin Calcium 20 Mg Tablet, 20 MG PO DAILY, (Reported) Baclofen 10 Mg Tablet, 10 MG PO TID, (Reported) Carvedilol 25 Mg Tab, 25 MG PO BID, (Reported) Cefdinir 300 Mg Capsule, 300 MG PO BID Prescribed by: LANDRY GAGNON on 12/10/19 115 Dapagliflozin Propanediol 5 Mg Tablet, 5 MG PO DAILY, (Reported) Diclofenac Sodium 75 Mg Tablet.dr, 75 MG PO BID Prescribed by: MAGDALENA ESTRADA on 06/26/19 1351 Gabapentin 600 Mg Tablet, 600 MG PO TID, (Reported) Lamotrigine 100 Mg Tablet, 100 MG PO BID, (Reported) Liraglutide 0.6 Mg/0.1 Ml Pen.injctr, 1.2 MG SQ DAILY, (Reported) Lisinopril/Hydrochlorothiazide 1 Each Tablet, 1 EACH PO DAILY, (Reported) Metformin HCl 500 Mg Tablet, 1,000 MG PO BID, (Reported) Oxycodone HCl/Acetaminophen 1 Each Tablet, 1 EACH PO Q4H PRN for PAIN-MODERATE Prescribed by: SHEY KAY on 02/10/20 1159 Prazosin HCl 2 Mg Capsule, 2 MG PO DAILY, (Reported) Prazosin HCl 2 Mg Capsule, 8 MG PO HS, (Reported) Quetiapine Fumarate 400 Mg Tablet, 400 MG PO HS, (Reported) Quetiapine Fumarate 200 Mg Tablet, 200 MG PO BID, (Reported) Patient Home Medication List Home Medication List Reviewed: Yes Review of Systems Review of Systems Constitutional: see HPI Other Comments CPR in progress, unable to obtain Past Losiiqa-Ucgyog-Stzmqc Hx Past Med/Social Hx: Reviewed Nursing Past Med/Soc Hx Patient Social History Drug of Choice: Past hx Meth, THC, daughters report 03/10/19 possible flacca use Type Used: Cigarettes 2nd Hand Smoke Exposure: Yes Recent Hopitalizations: No Immunizations Up To Date Date of Pneumonia Vaccine: Dec 21, 2016 Seasonal Allergies Seasonal Allergies: Yes Past Medical History Surgeries: Yes (LAMINECTOMY) Orthopedic Respiratory: Yes (MILD) COPD Cardiac: Yes Hypertension Neurological: Yes Headaches /Migraines, Neuropathy Sexually Transmitted Disease: No HIV/AIDS: No Genitourinary: No Gastrointestinal: Yes (Hep C) Gastroesophageal Reflux, Chronic Constipation, Hepatitis Musculoskeletal: Yes Rheumatoid Arthritis, Back Injury, Chronic Back Pain Endocrine: Yes Diabetes, Non-Insulin dep HEENT: No (GLASSES) Loss of Vision: Denies Hearing Impairment: Denies Cancer: No Psychosocial: Yes (Major depressive disorder) Anxiety, Bipolar Integumentary: No Blood Disorders: No Adverse Reaction/Blood Tranf: No (N/A) Family Medical History History obtained from records due to altered mental status and underlying condition. Physical Exam Vital Signs Capillary Refill : Height, Weight, BMI Height: 5'4.00" Weight: 190lbs. oz. 86.248348jl; 30.00 BMI Method:Stated General Appearance: Other (Intubated, CPR in progress) Extremity: Other (I/O right lower extremity) Progress/Results/Core Measures Progress Progress Note : Progress Note CPR was stopped at approximately 5 minutes after patient arrival. Patient had 25 minutes of CPR in the field with no organized verbal rhythm or ROSC. Patient remained in asystole with 2 ultrasounds that showed no cardiac activity. Departure Impression Primary Impression: Cardiac arrest Disposition: 20 Condition: Departure-Patient Inst. Referrals: TARIQ FOSTER APRN (PCP) Primary Care Physician [facility] (Family) Primary Care Physician MARGOT BLEVINS DO Jun 05, 2020 14:29
[2020-06-05 16:00] VITALS: BP 0/0
== END 2020-06-05 16:00 | disposition expired ==
LOC: EDUNIT# 14:20 → ER FS 14:21
DX: I46.9 Cardiac arrest, cause unspecified (principal); I10 Essential (primary) hypertension; E11.9 Type 2 diabetes mellitus without complications; G89.29 Other chronic pain; M54.9 Dorsalgia, unspecified; F31.9 Bipolar disorder, unspecified; Z77.22 Contact with and (suspected) exposure to environmental tobacco smoke (acute) (chronic); Z88.2 Allergy status to sulfonamides; Z88.1 Allergy status to other antibiotic agents; Z79.84 Long term (current) use of oral hypoglycemic drugs; Z79.891 Long term (current) use of opiate analgesic
CPT/HCPCS: 36680